=== PATIENT | male | born 1970 | race Caucasian/White ===

== ENCOUNTER 2017-10-14 19:35 | Emergency (ER) | payer SELFPAY ==
[2017-10-14 20:45] LABS: Urine Blood NEGATIVE (NEG); Urine Glucose NEGATIVE (NEG); Urine Protein NEGATIVE (NEG); Urine Specific Gravity >1.030 (1.005-1.030); Urine pH 5.5 (5.0-7.0)
[2017-10-14 20:51] LABS: Barbiturates NEGATIVE; Benzodiazepines NEGATIVE; Cocaine NEGATIVE; METHAMPHETAM NEGATIVE; Opiates POSITIVE; Phencyclidine NEGATIVE
[2017-10-14 20:52] LABS: THC Cannibis POSITIVE
[2017-10-14] MEDS ORDERED: NA CHLORIDE 0.9% 1,000 ML ONE (20:56)
[2017-10-14 21:02] LABS: Absolute Monocytes 0.4 K/uL (0.1-1.3); Absolute Neutrophil 4.1 K/uL (1.8-8.0); Basophils % 0.8 % (0-1.3); Eosinophils % 0.1 % (0-4.4); Hematocrit 42.2 % (39.6-49.0); Lymphocytes % 30.4 % (15.3-44.8); MCH 36.5 pg (27.0-35.0); MCV 105.6 fL (80-100); MPV 8.6 fL (7.6-11.3); Monocytes % 6.8 % (3.3-12.3)
[2017-10-14 21:11] LABS: Glucose Level 122 mg/dL (65-120)
[2017-10-14 21:14] LABS: BUN Blood Urea Nitrogen 13 mg/dL (6-20)
[2017-10-14 21:16] LABS: Bicarbonate 29 mEq/L (21-31); Creatine Phosphokinase 53 IU/L (22-269); Potassium 4.2 mEq/L (3.6-5.0); Sodium Level 138 mEq/L (135-145)
--- NOTE | 2017-10-14 21:21 | RAD REPORT ---
EXAM DESCRIPTION: RAD - Chest Single View - 10/14/2017 9:13 pm CLINICAL HISTORY: Chest pain. COMPARISON: None. FINDINGS: Portable technique limits examination quality. The lungs are grossly clear. The heart is upper limit normal size. No displaced fractures. IMPRESSION: No acute intrathoracic process suspected.
--- NOTE | 2017-10-14 21:25 | RAD REPORT ---
EXAM DESCRIPTION: CT - Head Brain Wo Cont - 10/14/2017 9:17 pm CLINICAL HISTORY: Altered consciousness COMPARISON: None. TECHNIQUE: All CT scans are performed using dose optimization technique as appropriate and may inclu de automated exposure control or mA/KV adjustment according to patient size. FINDINGS: No intracranial hemorrhage, hydrocephalus or extra-axial fluid collection.No areas of brai n edema or evidence of midline shift. The paranasal sinuses and mastoids are clear. The calvarium is intact. IMPRESSION: No acute intracranial abnormality.
[2017-10-14 21:37] LABS: Alcohol Serum/Plasma < 10 mg/dl; Blood Morphology Comment NOTED (NOT SEEN); Macrocytosis 1+; Platelet Estimate ADEQ; Urine White Blood Cell Casts OK
--- NOTE | 2017-10-14 23:10 | ER ---
Nurse's Notes [facility] Name: Tor Garland Age: 47 yrs Sex: Male : 1970 Arrival Date: 10/14/2017 Time: 19:37 Bed 17 Private MD: Diagnosis: Poisoning by other opioids, accidental (unintentional) Presentation: 10/14 19:59 Presenting complaint: "He is usually not this groggy, if I didn't know any better, I lk1 would think he is drunk, but I know he's not.". Transition of care: patient was not received from another setting of care. Onset of symptoms was October 14, 2017 at 18:45. Risk Assessment: Do you want to hurt yourself or someone else? Patient reports no desire to harm self or others. Initial Sepsis Screen:. Care prior to arrival: None. 19:59 Method Of Arrival: Ambulatory lk 19:59 Acuity: JIMMY 2 lk1 20:39 Initial Sepsis Screen: Does the patient meet any 2 criteria? No. Patient's initial ak1 sepsis screen is negative. Does the patient have a suspected source of infection? No. Patient's initial sepsis screen is negative. 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 - Social history:: Smoking status: Patient/guardian denies using tobacco. Screenin:36 Abuse screen: Denies threats or abuse. Denies injuries from another. Nutritional ak1 screening: No deficits noted. Tuberculosis screening: No symptoms or risk factors identified. Fall Risk None identified. Assessment: 20:36 General: Appears in no apparent distress. Behavior is cooperative, drowsy, quiet. Pain: ak1 Denies pain. Neuro: Level of Consciousness is awake, alert, obeys commands, lethargic, Oriented to person, place, situation, pt with downsyndrome . Heel Painter are equal bilaterally Moves all extremities. Gait is unsteady, Speech is normal, WNL for pt per family at bedside. Cardiovascular: No deficits noted. Respiratory: No deficits noted. Airway is patent Breath sounds are clear bilaterally. GI: No signs and/or symptoms were reported involving the gastrointestinal system. : No signs and/or symptoms were reported regarding the genitourinary system. EENT: No signs and/or symptoms were reported regarding the EENT system. Derm: No signs and/or symptoms reported regarding the dermatologic system. Musculoskeletal: No signs and/or symptoms reported regarding the musculoskeletal system. 22:09 Reassessment: Patient appears in no apparent distress at this time. pt appears drowsy ak1 and sleepy. 10/15 00:36 Reassessment: APS report filed, confirmation number [id number]. ak1 Vital Signs: 10/14 20:02 BP 131 / 70; Pulse 44; Resp 12; Temp 96.5(TE); Pulse Ox 99% on R/A; Weight 84.82 kg lk1 (R); Height 5 ft. 0 in. (152.40 cm) (R); Pain 3/10; 20:52 BP 128 / 75; Pulse 48; Resp 16; Pulse Ox 99% on R/A; ak1 22:10 BP 129 / 74; Pulse 55; Resp 16; Temp 97.8; Pulse Ox 100% on R/A; Pain 0/10; ak1 22:57 BP 129 / 71; Pulse 48; Resp 16; Temp 97.8; Pulse Ox 100% on R/A; Pain 0/10; ak1 20:02 Body Mass Index 36.52 (84.82 kg, 152.40 cm) lk1 ED Course: 19:37 Patient arrived in ED. ds1 20:00 Triage completed. lk1 20:05 Arm band placed on left wrist. lk1 20:15 Sp Vazquez MD is Attending Physician. gs 20:36 Carley Campos, RN is Primary Nurse. ak1 20:36 Patient has correct armband on for positive identification. Bed in low position. Call ak1 light in reach. Side rails up X2. Adult w/ patient. Pulse ox on. NIBP on. 20:52 CT Head Brain wo Cont Sent. ak1 20:53 Initial lab(s) drawn, by me, sent to lab. Urine collected: clean catch specimen, tea ak1 colored, Amount Voided: 150mL. Inserted saline lock: 20 gauge in right antecubital area, using aseptic technique. Blood collected. 20:[address] via stretcher. nj 21:05 Patient moved to radiology via stretcher. jb2 21:[address] via stretcher. jb2 21:11 XRAY Chest (1 view) In Process Unspecified. EDMS 21:11 X-ray completed. Patient tolerated procedure well. jb2 21:17 CT Head Brain wo Cont In Process Unspecified. EDMS 22:10 No provider procedures requiring assistance completed. ak1 23:14 IV discontinued, intact, bleeding controlled, No redness/swelling at site. Pressure ak1 dressing applied. Administered Medications: 21:25 Drug: NS 0.9% 1000 ml Route: IV; Rate: 1 bolus; Site: right antecubital; ak1 22:09 Follow up: IV Status: Completed infusion ak1 Outcome: 23:09 Discharge ordered by . pm1 23:14 Discharged to home ambulatory, with family. ak1 23:14 Condition: stable 23:14 Discharge instructions given to family, Instructed on discharge instructions, follow up and referral plans. Demonstrated understanding of instructions, follow-up care. 23:15 Patient left the ED. ak1 Signatures: Dispatcher [employer] EDMS Marcos Casper jb2 Marry Garrett ds1 Carley Campos RN RN ak1 Sheela Amos RN RN lk1 Lopez Bocanegra, SURGICAL LEAD SURGICAL LEAD pm1 Fahad Medina Gregory, MD MD
--- NOTE | 2017-10-14 23:10 | EDPHYS ---
Physician Documentation [facility] Name: Tor Garland Age: 47 yrs Sex: Male : 1970 Arrival Date: 10/14/2017 Time: 19:37 Bed 17 Private MD: ED Physician Sp Vazquez HPI: 10/14 21:25 This 47 yrs old Male presents to ER via Ambulatory with complaints of Altered gs Mental Status. 21:25 The patient presents with decreased responsiveness. Onset: The symptoms/episode gs began/occurred today. Possible causes: unknown. Associated signs and symptoms: Pertinent negatives: abdominal pain, agitation, diaphoresis, dizziness, headache. Unable to obtain HPI due to patient's inability to understand questions. 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 - Social history:: Smoking status: Patient/guardian denies using tobacco. ROS: 21:25 All other systems are negative. gs Exam: 10/15 10:57 Head/Face: Normocephalic, atraumatic. Eyes: Pupils equal round and reactive to light, gs extra-ocular motions intact. Lids and lashes normal. Conjunctiva and sclera are non-icteric and not injected. Cornea within normal limits. Periorbital areas with no swelling, redness, or edema. ENT: Nares patent. No nasal discharge, no septal abnormalities noted. Tympanic membranes are normal and external auditory canals are clear. Oropharynx with no redness, swelling, or masses, exudates, or evidence of obstruction, uvula midline. Mucous membranes moist. Neck: Trachea midline, no thyromegaly or masses palpated, and no cervical lymphadenopathy. Supple, full range of motion without nuchal rigidity, or vertebral point tenderness. No Meningismus. Chest/axilla: Normal chest wall appearance and motion. Nontender with no deformity. No lesions are appreciated. Cardiovascular: Regular rate and rhythm with a normal S1 and S2. No gallops, murmurs, or rubs. Normal PMI, no JVD. No pulse deficits. Respiratory: Lungs have equal breath sounds bilaterally, clear to auscultation and percussion. No rales, rhonchi or wheezes noted. No increased work of breathing, no retractions or nasal flaring. Abdomen/GI: Soft, non-tender, with normal bowel sounds. No distension or tympany. No guarding or rebound. No evidence of tenderness throughout. Back: No spinal tenderness. No costovertebral tenderness. Full range of motion. Skin: Warm, dry with normal turgor. Normal color with no rashes, no lesions, and no evidence of cellulitis. MS/ Extremity: Pulses equal, no cyanosis. Neurovascular intact. Full, normal range of motion. Neuro: Awake and alert, GCS 15, oriented to person, place, time, and situation. Cranial nerves II-XII grossly intact. Motor strength 5/5 in all extremities. Sensory grossly intact. Cerebellar exam normal. Normal gait. Constitutional: The patient appears alert, awake. Vital Signs: 10/14 20:02 BP 131 / 70; Pulse 44; Resp 12; Temp 96.5(TE); Pulse Ox 99% on R/A; Weight 84.82 kg lk1 (R); Height 5 ft. 0 in. (152.40 cm) (R); Pain 3/10; 20:52 BP 128 / 75; Pulse 48; Resp 16; Pulse Ox 99% on R/A; ak1 22:10 BP 129 / 74; Pulse 55; Resp 16; Temp 97.8; Pulse Ox 100% on R/A; Pain 0/10; ak1 22:57 BP 129 / 71; Pulse 48; Resp 16; Temp 97.8; Pulse Ox 100% on R/A; Pain 0/10; ak1 20:02 Body Mass Index 36.52 (84.82 kg, 152.40 cm) lk MDM: 20:40 Patient medically screened. 23:08 Data reviewed: vital signs. Data interpreted: Pulse oximetry: on room air is 100 %. pm1 Interpretation: normal. Counseling: I had a detailed discussion with the patient and/or guardian regarding: the historical points, exam findings, and any diagnostic results supporting the discharge/admit diagnosis, lab results, the need for outpatient follow up, to return to the emergency department if symptoms worsen or persist or if there are any questions or concerns that arise at home. 10/15 10:57 Differential Diagnosis: electrolyte abnormality, alcohol intoxication, intracranial gs bleed, overdose. Response to treatment: the patient's symptoms have markedly improved after treatment, and as a result, I will discharge patient. 10/14 20:23 Order name: UDS; Complete Time: 21:00 ak1 10/14 20:41 Order name: ETOH Level; Complete Time: 23:06 10/14 20:41 Order name: Basic Metabolic Panel; Complete Time: 23:06 10/14 20:41 Order name: CBC with Diff; Complete Time: 21:38 10/14 20:41 Order name: CPK; Complete Time: 23:06 10/14 20:41 Order name: Troponin (emerg Dept Use Only); Complete Time: 21:27 10/14 20:41 Order name: CT Head Brain wo Cont; Complete Time: 21:27 10/14 20:41 Order name: XRAY Chest (1 view); Complete Time: 21:27 10/14 20:41 Order name: EKG; Complete Time: 20:42 10/14 20:42 Order name: Urine Dipstick--Ancillary (enter results) rg2 10/14 20:46 Order name: AMMONIA; Complete Time: 21:18 10/14 21:27 Order name: Tylenol Level; Complete Time: 23:06 10/14 21:37 Order name: CBC Smear Scan; Complete Time: 21:38 EDMS 10/14 20:41 Order name: Cardiac monitoring; Complete Time: 21:25 10/14 20:41 Order name: EKG - Nurse/Tech; Complete Time: 21:58 10/14 20:41 Order name: IV Saline Lock; Complete Time: 20:51 10/14 20:41 Order name: Labs collected and sent; Complete Time: 20:52 10/14 20:41 Order name: O2 Per Protocol; Complete Time: 20:52 10/14 20:41 Order name: O2 Sat Monitoring; Complete Time: 20:52 10/14 20:41 Order name: Urine Dipstick-Ancillary (obtain specimen); Complete Time: 20:52 gs Administered Medications: 10/14 21:25 Drug: NS 0.9% 1000 ml Route: IV; Rate: 1 bolus; Site: right antecubital; ak1 22:09 Follow up: IV Status: Completed infusion ak1 Disposition: 10/15 10:57 Co-signature as Attending Physician, Sp Vazquez MD. gs Disposition: 10/14/17 23:09 Discharged to Home. Impression: Poisoning by other opioids, accidental (unintentional). - Condition is Stable. - Discharge Instructions: Narcotic Overdose, Overdose, Accidental. - Medication Reconciliation Form, Thank You Letter, Antibiotic Education, Prescription Opioid Use form. - Follow up: Private Physician; When: 1 - 2 days. Signatures: Dispatcher [employer] EDMS Carley Campso RN RN ak1 Sheela Amos RN RN lk1 Lopez Bocanegra, LINE APPLIANCE ASSEMBLER LINE APPLIANCE ASSEMBLER pm1 Sp Vazquez MD MD gs Corrections: (The following items were deleted from the chart) 10/14 23:15 23:09 10/14/2017 23:09 Discharged to Home. Impression: Poisoning by other opioids, ak1 accidental (unintentional). Condition is Stable. Discharge Instructions: Narcotic Overdose, Overdose, Accidental. Forms are Medication Reconciliation Form, Thank You Letter, Antibiotic Education, Prescription Opioid Use. Follow up: Private Physician; When: 1 - 2 days. pm1
--- NOTE | 2017-10-15 06:56 | EKG ---
Test Date: 2017-10-14 Test Time: 21:40:32 Club Director: ALY MEASUREMENT RESULTS: Intervals: Rate: 49 SD: 156 QRSD: 86 QT: 458 QTc: 413 [place]: P: 43 SD: 156 QRS: 11 T: 35 INTERPRETIVE STATEMENTS: Sinus bradycardia Otherwise normal ECG No previous ECG available for comparison Electronically Signed On 10-15-17 06:55:21 CDT by Ganesh Carver
== END 2017-10-14 23:15 | disposition home or self-care (01) ==
LOC: ER 19:35
DX: T40.2X1A Poisoning by other opioids, accidental (unintentional), initial encounter (principal); Y92.9 Unspecified place or not applicable
CPT/HCPCS: 36415; 70450; 71045; 80048; 80307; 80320; 80329; 81003; 82140; 82550; 84484; 85025; 93005; 96360; 99284; J7030

== ENCOUNTER 2022-05-21 09:24 | Observation (INO) | payer OTHER ==
--- OUTSIDE RECORDS SUMMARY | 2022-05-21 09:27 | XMS REPORT | Continuity of Care Document ---
:1970 Author Organization [facility] t Address [address] [place] [address] [address] [place] [address] Care Team Providers Name Role Phone Kd Armstrong MD Attending Clinician KD ARMSTRONG Attending Clinician Unavailable Doctor Unassigned, [place] Attending Clinician Unavailable Payers Payer Name Policy Type Policy Number Effective Date Expiration Date S ource Problems This patient has no known problems. Allergies, Adverse Reactions, Alerts Allergy Allergy Status Severity Reaction(s) Onset Inactive Treating Comm ents Source Name Type Date Date Clinician NO KNOWN Drug Active Univers ALLERGIE Class ity of [facility] Social History Social Habit Start Date Stop Date Quantity Comments Source Sex Assigned At [birth year] [facility] 00:00:00 00:00:00 [facility] Smoking Status Start Date Stop Date Source Unknown if ever smoked [facility] Medications Ordered Filled Start Stop Current Ordering Indication Dosage Frequency Signature Comments Components Source Medication Medication Date Date Medication? Clinician (SIG) Name Name barium 2020- No [id number] 680mL 680 mL, Un scott sulfate 08-15 Oral, ity of (LIQUID E-Z 14:15: 14:15 [place], [place] 60 % 00 :00 dose, Mon Med ical (w/v) oral 08/15/20 at [facility] suspension 0915, 680 mL Routine Procedures Procedure Date / Time Performed Performing Clinician Denice VALDES SMALL BOWEL SERIES 2020-08-15 18:44:34 Kd Armstrong [facility] ASSIGNMENT OF BENEFITS 2020-08-15 13:35:57 Doctor Unassigned, No [facility] Encounters Start End Encounter Admission Attending Care Care Encounter Source Date/Time Date/Time Type Type Clinicians Facility Department ID 2020-08-15 2020-08-15 [facility] [id number] Univers 08:36:47 23:59:00 Encounter Kd Jovany Todd [id number] ity [facility] [id number] [facility] [id number] [facility] [address] 2020-08-15 2020-08-15 Outpatient R [facility] [id number] Univers 00:00:00 00:00:00 KD ity [facility] 2020-08-15 2020-08-15 Orders Doctor SHEREE [id number] Univers 00:00:00 00:00:00 Only Unassigned, AMAURI [id number] ity of [facility] [id number] [facility] [id number] [facility] [address] 2017-03-13 2017-03-13 Outpatient [facility] [id number] 07:30:00 07:30:00 02 timur Stein 2016-03-06 2016-03-06 Outpatient [facility] [id number] [address] 08:30:00 08:30:00 01 timur Stein 2015-02-10 2015-02-10 Outpatient [facility] [id number] [address] 07:30:00 07:30:00 00 timur Stein Results Test Description Test Time Test Results Result Source Comments Comments [place] SMALL BOWEL 2020-07-26 Small bowel [facility] of SERIES [address] [facility] 19:22:04 obstruction. 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 Barium was administered for the patient to ingest. Fluoroscopy and serialfilms were obtained as the barium traversed the small bowel into the cecumand ascending colon. 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 The contrast passed easily throughthe duodenum which appears normal. The contrast reached: About 4 hours. Nomucosal or functional abnormalities were observed. 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 Fluoroscopy and serialfilms were obtained as the barium traversed the small bowel into the cecumand ascending colon. 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 The contrast passed easily throughthe duodenum which appears normal. The contrast reached: About 4 hours. Nomucosal or functional abnormalities were observed.IMPRESSIONSma ll bowel malrotation without obstruction.
[2022-05-21 10:10] LABS: Absolute Lymphocytes (CBC) 1.3 K/uL (0.7-4.9); Hematocrit 39.1 % (39.6-49.0); MCV 104.6 fL (80-100); MPV 7.6 fL (7.6-11.3); RBC Red Blood Cell Count 3.74 M/uL (4.33-5.43)
--- NOTE | 2022-05-21 10:29 | RAD REPORT ---
EXAM DESCRIPTION: RAD - Chest Single View - 05/21/2022 10:10 am CLINICAL HISTORY: SOB Chest pain. COMPARISON: Chest Pa And Lat (2 Views) dated 07/25/2020; Chest Single View dated 10/14/2017 FINDINGS: Portable technique limits examination quality. Interstitial markings are mildly prominent suggesting interstitial/viral infection or mild interstiti al pulmonary edema. The heart is upper limit normal in size. No displaced fractures.
[2022-05-21 10:38] LABS: SARS-COV-2 RT PCR NEGATIVE (NEGATIVE)
[2022-05-21 11:02] LABS: Potassium 3.7 mmol/L (3.5-5.1)
--- NOTE | 2022-05-21 11:38 | RAD REPORT ---
EXAM DESCRIPTION: CT - Thorax Wo Con CLINICAL HISTORY: Chest pain sob, concern for aspiration COMPARISON: Chest Single View dated 05/21/2022 FINDINGS: The lungs are clear. No pleural thickening or pleural effusion. No pneumothorax. No axillary, mediastinal or hilar adenopathy. No concerning bony finding. No gross upper abdominal finding. All CT scans are performed using dose optimization technique as appropriate and may include automated exposure control or mA/KV adjustment according to patient size. IMPRESSION: No acute abnormality is detected.
--- NOTE | 2022-05-21 11:52 | ER ---
Nurse's Notes [facility] Name: Tor Garland Age: 52 yrs Sex: Male : 1970 Arrival Date: 05/21/2022 Time: 09:30 Bed 8 Private MD: Diagnosis: Aspiration Presentation: 05/21 09:47 Chief complaint: Patient states: Coughing fit while eating breakfast this morning. Sent ll1 for r/o aspiration. Chief complaint: EMS states: VSS. Coronavirus screen: Vaccine status: Patient reports receiving the 2nd dose of the covid vaccine. Client denies travel out of the [place] in the last 14 days. cough unrelated to allergies, difficulty breathing, shortness of breath, Client presents with at least one sign or symptom that may indicate coronavirus-19. Standard/surgical mask placed on the client. Ebola Screen: Patient denies travel to an Ebola-affected area in the 21 days before illness onset. Initial Sepsis Screen: Does the patient meet any 2 criteria? No. Patient's initial sepsis screen is negative. Does the patient have a suspected source of infection? No. Patient's initial sepsis screen is negative. Risk Assessment: Do you want to hurt yourself or someone else? Patient reports no desire to harm self or others. Onset of symptoms was May 21, 2022. 09:47 Method Of Arrival: EMS: [facility] 09:47 Acuity: JIMMY 3 ll1 Triage Assessment: 10:00 General: Appears in no apparent distress. Behavior is calm, cooperative. Pain: Denies bp pain. EENT: No deficits noted. Neuro: AT BASELINE. Cardiovascular: Rhythm is sinus rhythm. Respiratory: No deficits noted. GI: No signs and/or symptoms were reported involving the gastrointestinal system. : No signs and/or symptoms were reported regarding the genitourinary system. Derm: No deficits noted. Musculoskeletal: No deficits noted. 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 - Social history:: Smoking status: Patient denies any tobacco usage or history of. Screenin:00 [facility] ED Fall Risk Assessment (Adult) History of falling in the last 3 months, bp including since admission No falls in past 3 months (0 pts). Abuse screen: Denies threats or abuse. Denies injuries from another. Nutritional screening: No deficits noted. Tuberculosis screening: No symptoms or risk factors identified. Assessment: 10:00 General: SEE TRIAGE NOTE. bp 12:00 Reassessment: ADMIT INITIATED. bp 14:00 Reassessment: No changes from previously documented assessment. Patient and/or family bp updated on plan of care and expected duration. Pain level reassessed. ADMIT IN PROCESS. 19:20 General: Appears in no apparent distress. comfortable, well groomed, well developed, pf1 Behavior is cooperative, appropriate for age. 19:20 Pain: Complains of pain in head Pain currently is 5 out of 10 on a pain scale. Neuro: pf1 Level of Consciousness is awake, alert, obeys commands, Oriented to Appropriate for age. Cardiovascular: No deficits noted. Capillary refill < 3 seconds. Respiratory: Reports cough that is Airway is patent Respiratory effort is even, unlabored, Respiratory pattern is regular, symmetrical. GI: No deficits noted. Abdomen is flat, non-distended, Bowel sounds present X 4 quads. Abd is soft and non tender X 4 quads. : No deficits noted. No signs and/or symptoms were reported regarding the genitourinary system. EENT: No deficits noted. No signs and/or symptoms were reported regarding the EENT system. Derm: No deficits noted. No signs and/or symptoms reported regarding the dermatologic system. 20:30 Reassessment: Patient appears in no apparent distress at this time. No changes from [facility] previously documented assessment. Patient and/or family updated on plan of care and expected duration. Pain level reassessed. 21:45 General: Patient cleaned of urine and feces, clean brief applied. Patient taken to [facility] upstairs to be admitted via WC.. Vital Signs: 09:47 BP 115 / 78; Pulse 60; Resp 18; Temp 98.8; Pulse Ox 99% ; Weight 85 kg; Height 5 ft. bp (152.40 cm); Pain 5/10; 12:00 BP 101 / 87; Pulse 57; Resp 16; Pulse Ox 100% ; bp 14:00 BP 97 / 62; Pulse 63; Resp 19; Pulse Ox 100% ; bp 19:00 BP 117 / 65; Pulse 60; Resp 19; Temp 98.2; Pulse Ox 99% on R/A; Pain 5/10; pf1 20:00 BP 126 / 70; Pulse 54; Resp 14; Temp 98; Pulse Ox 100% on R/A; Pain 5/10; pf1 21:00 BP 131 / 70; Pulse 54; Resp 18; Temp 97.9; Pulse Ox 100% on R/A; Pain 5/10; pf1 09:47 Body Mass Index 36.60 (85.00 kg, 152.40 cm) bp ED Course: 09:30 Patient arrived in ED. em1 09:30 James Crespo PA is PHCP. jmm 09:30 Frederic Lea MD is Attending Physician. jmm 09:30 Arm band placed on Patient placed in an exam room, on a stretcher. ll1 09:46 Galina Hyatt RN is Primary Nurse. ll1 09:48 Triage completed. ll1 09:53 CBC with Diff Sent. rs5 09:53 BMP Sent. rs5 09:53 COVID-19/FLU A+B Sent. rs5 09:54 Inserted saline lock: 20 gauge in right forearm, using aseptic technique. Blood rs5 collected. 09:54 COVID swab sent to lab. rs5 10:00 Patient has correct armband on for positive identification. Bed in low position. Call bp light in reach. Side rails up X2. Adult w/ patient. 10:11 Chest Single View XRAY In Process Unspecified. EDMS 11:07 CT Chest Wo Con In Process Unspecified. EDMS 11:51 Bess Banks MD is Hospitalizing Provider. [facility] 20:57 No provider procedures requiring assistance completed. Patient admitted, IV remains in pf1 place. Administered Medications: 13:30 Drug: Zosyn (piperacillin-tazobactam) 3.375 grams Route: IVPB; Infused Over: 60 mins; bp Site: right antecubital; Medication: 20:58 VIS not applicable for this client. pf1 Outcome: 11:52 Decision to Hospitalize by Provider. jmm 20:58 Condition: stable pf1 20:58 Instructed on the need for admit. 21:45 Admitted to Med/surg accompanied by tech, via wheelchair, room 409, with chart, Report pf1 called to VEE Desai 21:47 Patient left the ED. pf1 Signatures: Dispatcher [employer] EDMS James Crespo PA PA jmm Martinez, Eric em1 Jaime Villatoro RN RN bp Galina Hyatt RN RN ll1 Faye pedraza RN RN pf1 Triston Ramos rs5 Corrections: (The following items were deleted from the chart) 18:41 09:47 BP 115 / 78; Pulse 60bpm; Resp 18bpm; Pulse Ox 99%; Temp 98.8F; Pain 5/10; ll1 bp
--- NOTE | 2022-05-21 11:52 | EDPHYS ---
Physician Documentation [facility] Name: Tor Garland Age: 52 yrs Sex: Male : 1970 Arrival Date: 05/21/2022 Time: 09:30 Bed 8 Private MD: ED Physician Frederic Lea HPI: 05/21 09:57 This 52 yrs old Male presents to ER via EMS with complaints of cough, sob. [facility] 09:57 Onset: The symptoms/episode began/occurred acutely, just prior to arrival. The [facility] patient's shortness of breath is aggravated by coughing, is alleviated by nothing. This is a 52 year old male with a history of MR that presents to the ED after an episode of sob which occurred after a coughing fit. Patient currently has no sob, chest pain, abdominal pain, nausea, vomiting. . Historical: - Allergies: 09:47 No Known Allergies; ll1 - PMHx: 09:47 mastoiditis; mental retardation; ll1 - PSHx: 09:47 Unable to Obtain; ll1 - Immunization history:: Adult Immunizations up to date. - Social history:: Smoking status: Patient denies any tobacco usage or history of. ROS: 09:57 Constitutional: Negative for fever, chills, and weight loss, Cardiovascular: Negative [facility] for chest pain, palpitations, and edema. 09:57 Respiratory: Positive for cough. 09:57 All other systems are negative. Exam: 09:57 Constitutional: This is a well developed, well nourished patient who is awake, alert, jmm and in no acute distress. Head/Face: atraumatic. Eyes: EOMI, no conjunctival erythema appreciated ENT: Moist Mucus Membranes Neck: Trachea midline, Supple Chest/axilla: Normal chest wall appearance and motion. Cardiovascular: Regular rate and rhythm. No edema appreciated Respiratory: Normal respirations, no respiratory distress appreciated Abdomen/GI: Non distended Back: Normal ROM Skin: General appearance color normal MS/ Extremity: Moves all extremities, no obvious deformities appreciated, no edema noted to the lower extremities Neuro: Awake and alert Psych: Behavior is normal, Mood is normal, Patient is cooperative and pleasant 10:04 ECG was reviewed by the Attending Physician. [facility] Vital Signs: 09:47 BP 115 / 78; Pulse 60; Resp 18; Temp 98.8; Pulse Ox 99% ; Weight 85 kg; Height 5 ft. bp (152.40 cm); Pain 5/10; 12:00 BP 101 / 87; Pulse 57; Resp 16; Pulse Ox 100% ; bp 14:00 BP 97 / 62; Pulse 63; Resp 19; Pulse Ox 100% ; bp 19:00 BP 117 / 65; Pulse 60; Resp 19; Temp 98.2; Pulse Ox 99% on R/A; Pain 5/10; pf1 20:00 BP 126 / 70; Pulse 54; Resp 14; Temp 98; Pulse Ox 100% on R/A; Pain 5/10; pf1 21:00 BP 131 / 70; Pulse 54; Resp 18; Temp 97.9; Pulse Ox 100% on R/A; Pain 5/10; pf1 09:47 Body Mass Index 36.60 (85.00 kg, 152.40 cm) bp MDM: 09:[address] [facility] 11:48 Data reviewed: vital signs, nurses notes. Counseling: I had a detailed discussion with pool the patient and/or guardian regarding: the historical points, exam findings, and any diagnostic results supporting the discharge/admit diagnosis, lab results, radiology results, the need for further work-up and treatment in the hospital. ED course: Dr. Banks was contacted in regard to admission. . 05/21 09:38 Order name: COVID-19/FLU A+B; Complete Time: 10:[address] [facility] 05/21 09:38 Order name: CBC with Diff; Complete Time: 10:[address] [facility] 05/21 09:38 Order name: BMP; Complete Time: 11:[address] [facility] 05/21 11:50 Order name: Blood Culture Adult (2) [facility] 05/21 11:50 Order name: Lactate w/ 2H reflex if indic.; Complete Time: 12:[address] [facility] 05/21 13:38 Order name: CBC with Automated Diff [facility] 05/21 13:38 Order name: CBC with Automated Diff [facility] 05/21 13:38 Order name: Comprehensive Metabolic Panel [facility] 05/21 13:38 Order name: Comprehensive Metabolic Panel [facility] 05/21 13:38 Order name: Lipid Profile [facility] 05/21 13:38 Order name: Lipid Profile [facility] 05/21 13:38 Order name: Magnesium [facility] 05/21 13:38 Order name: Magnesium EDMS 05/21 13:38 Order name: Phosphorus EDMS 05/21 09:38 Order name: Chest Single View XRAY; Complete Time: 10:[address] [facility] 05/21 09:38 Order name: Saline Lock; Complete Time: 09:[address] [facility] 05/21 10:40 Order name: CT Chest Wo Con; Complete Time: 11:[address] [facility] 05/21 13:38 Order name: Regular EDMS 05/21 13:38 Order name: Phosphorus EDMS EC:04 Rate is 60 beats/min. Rhythm is regular. QRS Ruth is Normal. RI interval is normal. QRS jmm interval is normal. QT interval is normal. No Q waves. T waves are Normal. No ST changes noted. Reviewed by me. Administered Medications: 13:30 Drug: Zosyn (piperacillin-tazobactam) 3.375 grams Route: IVPB; Infused Over: 60 mins; bp Site: right antecubital; Disposition Summary: 05/21/22 11:52 Hospitalization Ordered Hospitalization Status: Observation [facility] Provider: Bess Banks Condition: Stable jmm Problem: new jmm Symptoms: have improved jmm Bed/Room Type: Standard [facility] Location: Telemetry/MedSurg (observation)(05/21/22 19:37) [facility] Room Assignment: [facility](05/21/22 20:28) Diagnosis - Aspiration jmm Forms: - Medication Reconciliation Form jmm - SBAR form jmm Signatures: Dispatcher [employer] EDRI Frederic Lea MD MD cha Mickail, Joel, PA PA [facility] Gwendolyn Love, RN RN Abby Nguyễn RN RN jl7 Jaime Villatoro RN RN Willie Tsai 2 Galina Hyatt RN RN ll1 Corrections: (The following items were deleted from the chart) 15:10 11:52 Telemetry/MedSurg (observation) [facility] jl7 15:10 11:[address] [facility] jl7 19:37 15:[address] [facility] ER HOLD jl7 mw2 19:37 15:10 ERHOLD- jl7 mw2 20:28 19:37 [facility]
[2022-05-21] MEDS ORDERED: Meropenem 1000 MG/VIAL IV ONE (12:25)
[2022-05-21] MEDS ORDERED: NA CHLORIDE 0.9% 100 ML IV ONE ×2 (12:25→16:31)
[2022-05-21] MEDS ORDERED: ONDANSETRON 4 MG/2 ML VIAL IV PRN (13:32)
[2022-05-21] MEDS ORDERED: ACETAMINOPHEN 500 MG TAB PO PRN (13:32)
[2022-05-21] MEDS ORDERED: NA CHLORIDE 0.9% 1,000 ML IV SCH (14:00)
[2022-05-21] MEDS ORDERED: PIPERACIL/TAZO 3.375 GM VIAL IV ONE (16:31)
[2022-05-21] MEDS ORDERED: NA CHLORIDE 0.9% 1,000 ML ONE (16:31)
[2022-05-21] MEDS: PIPER TAZO 3.375 GM in NA CHLORIDE 0.9% 100 ML IV SCH (17:00)
[2022-05-21 18:56] VITALS: BMI 36.1
--- NOTE | 2022-05-21 20:52 | P.HP ---
Certification for Inpatient Patient admitted to: Observation With expected LOS: <2 Midnights Patient will require the following post-hospital care: None Practitioner: I am a practitioner with admitting privileges, knowledge of patient current condition, hospital course, and medical plan of care. Services: Services provided to patient in accordance with Admission requirements found in Title 42 Section 412.3 of the Code of Federal Regulations Patient History Date of Service: 05/21/22 Reason for admission: Aspiration pneumonia History of Present Illness: P Patient was eating at the facility he states that he started taking. He came to the emergency room. In the emergency room CT scan did not review any pneumonia. When I came to see the patient he has just been fed his dinner, and he is lying flat. I really think he needs to beatient is a 52-year-old gentleman who is a rest and [facility] who comes to the hospital with aspiration pneumonia. Patient was apparently eating at the nursing facility when he choked on some food. He was sent to the emergency room. In the emergency room his workup is unremarkable. Advised patient to have a bedside swallow study and if he tolerates than he should be able to go home. At this time, patient be admitted for observation. Allergies No Known Allergies Allergy (Unverified 05/21/22 13:51) - Past Medical/Surgical History Has patient received pneumonia vaccine in the past: Yes Diabetic: No -: mental retardation Past Surgical History: Patient denies surgical history - Family History Father Family History: Reviewed- Non-Contributory - Social History Smoking Status: Never smoker CD- Drugs: No Caffeine use: No Place of Residence: [facility] Review of Systems 10-point ROS is otherwise unremarkable Physical Examination - Vital Signs Temperature: 98 F Blood Pressure: 114/71 Pulse: 56 Respirations: 15 Pulse Ox (%): 100 - Physical Exam General: Alert, In no apparent distress, Oriented x3 HEENT: Atraumatic, PERRLA, Mucous membr. moist/pink, EOMI, Sclerae nonicteric Neck: Supple, 2+ carotid pulse no bruit, No LAD, Without JVD or thyroid abnormality Respiratory: Clear to auscultation bilaterally, Normal air movement Cardiovascular: Regular rate/rhythm, Normal S1 S2, No murmurs Gastrointestinal: Normal bowel sounds, Soft and benign, Non-distended, No tenderness Musculoskeletal: No clubbing, No swelling, No tenderness Integumentary: No rashes Neurological: Normal gait, Normal speech, Normal tone, Sensation intact, Cranial nerves 3-12 intact, Normal affect, Abnormal strength Lymphatics: No axilla or inguinal lymphadenopathy - Studies Laboratory Data (last 24 hrs) 05/21/22 09:48: Sodium 141, Potassium 3.7, BUN 22 H, Creatinine 0.62 L, Glucose 112 H 05/21/22 09:48: WBC 8.20, Hgb 13.8, Hct 39.1 L, Plt Count 240 Assessment & Plan - Problems (Diagnosis) (1) Aspiration into airway Current Visit: Yes Status: Acute - Plan Plan: 1. Aspiration precautions 2. Advanced diet as tolerated 3. Monitor labs and electrolytes 4. GI DVT prophylaxis Discharge Plan: [facility] Plan to discharge in: 24 Hours - Advance Directives Does patient have a Living Will: No Does patient have a Durable POA for Healthcare: No - Code Status/Comfort Care Code Status Assessed: Yes Code Status: Full Code Critical Care: No Time Spent Managing PTS Care (In Minutes): 45
[2022-05-22] MEDS: PIPER TAZO 3.375 GM in NA CHLORIDE 0.9% 100 ML IV SCH (00:35)
[2022-05-22 03:38] LABS: Absolute Lymphocytes (CBC) 2.1 K/uL (0.7-4.9); Hematocrit 35.4 % (39.6-49.0); Lymphocytes % 27.7 % (15.3-44.8); MCV 104.9 fL (80-100); MPV 7.6 fL (7.6-11.3); RBC Red Blood Cell Count 3.38 M/uL (4.33-5.43)
[2022-05-22 04:10] LABS: Albumin 2.6 g/dL (3.4-5.0); Bilirubin Total 0.6 mg/dL (0.2-1.0); Magnesium 2.3 mg/dL (1.6-2.4); Phosphorus 3.6 mg/dL (2.5-4.9); Potassium 3.5 mmol/L (3.5-5.1); Protein, Total 6.7 g/dL (6.4-8.2)
[2022-05-22 05:02] VITALS: O2SAT 98
[2022-05-22 08:31] VITALS: BP 119/66; TEMP 96.8
[2022-05-22 08:53] LABS: Folic Acid, (Folate) 9.2 ng/mL (3.1-17.5)
[2022-05-22] MEDS ORDERED: POTASSIUM CL SA 10 MEQ TAB PO ONE (09:00)
[2022-05-22] MEDS ORDERED: ENOXAPARIN 40 MG/0.4 ML SQ SCH (09:00)
--- NOTE | 2022-05-22 13:41 | EKG ---
Test Date: 2022-05-21 Test Time: 09:35:14 [employer] Business Representative: WANG MEASUREMENT RESULTS: Intervals: Rate: 60 SD: 142 QRSD: 86 QT: 438 QTc: 438 [place]: P: 66 SD: 142 QRS: 45 T: 38 INTERPRETIVE STATEMENTS: Normal sinus rhythm Normal ECG Compared to ECG 10/14/2017 21:40:32 Sinus bradycardia no longer present Electronically Signed On 05-22-22 13:38:39 POOL TABLE OPERATOR by Adeel Mcginnis
== END 2022-05-22 09:38 ==
LOC: ER 09:24 → ERHOLD 13:32 → 4TH 20:48
PROVIDERS: ADMIT Hospitalist; ATTEND Hospitalist
DX: T17.928A Food in respiratory tract, part unspecified causing other injury, initial encounter (principal); X58.XXXA Exposure to other specified factors, initial encounter; Y93.9 Activity, unspecified; Y92.129 Unspecified place in nursing home as the place of occurrence of the external cause; Z20.822 Contact with and (suspected) exposure to COVID-19
CPT/HCPCS: 0240U; 36415; 71045; 71250; 80048; 80053; 80061; 82607; 82746; 83540; 83605; 83735; 84100; 85025; 87040; 93005; 94760; 96374; 99285; G0378; J2185; J2543; J7030

== ENCOUNTER 2023-03-10 12:08 | Emergency (ER) | payer OTHER ==
--- OUTSIDE RECORDS SUMMARY | 2023-03-10 12:11 | XMS REPORT | Continuity of Care Document ---
:[address] [facility] t Address [address] [place] [address] Care Team Providers Name Role Phone Kd Armstrong MD Attending Clinician KD ARMSTRONG Attending Clinician Unavailable Doctor Unassigned, Gillis Attending Clinician Unavailable Payers Payer Name Policy Type Policy Number Effective Date Expiration Date S ource Problems This patient has no known problems. Allergies, Adverse Reactions, Alerts Allergy Allergy Status Severity Reaction(s) Onset Inactive Treating Comm ents Source Name Type Date Date Clinician NO KNOWN Drug Active Univers ALLERGIE Class ity [facility] Social History Social Habit Start Date Stop Date Quantity Comments Source Sex Assigned At [birth year] [facility] 00:00:00 00:00:00 [facility] Smoking Status Start Date Stop Date Source Unknown if ever smoked [facility] Medications Ordered Filled Start Stop Current Ordering Indication Dosage Frequency Signature Comments Components Source Medication Medication Date Date Medication? Clinician (SIG) Name Name barium 2020- No [id number] 680mL 680 mL, Un scott sulfate 08-15 Oral, ity of (LIQUID E-Z 14:15: 14:15 [place], [place] 60 % 00 :00 dose, Mon Med ical (w/v) oral 08/15/20 at [facility] suspension 0915, 680 mL Routine Procedures Procedure Date / Time Performed Performing Clinician Denice VALDES SMALL BOWEL SERIES 2020-08-15 18:44:34 Kd Armstrong [facility] ASSIGNMENT OF BENEFITS 2020-08-15 13:35:57 Doctor Unassigned, No [facility] Branch Encounters Start End Encounter Admission Attending Care Care Encounter Source Date/Time Date/Time Type Type Clinicians Facility Department ID 2020-08-15 2020-08-15 [facility] [id number] Univers 08:36:47 23:59:00 Encounter Kd Todd [id number] ity of [place] [id number] [facility] [id number] [facility] [address] 2020-08-15 2020-08-15 [facility] [id number] Univers 00:00:00 00:00:[address] [facility] 2020-08-15 2020-08-15 Orders Doctor BENTLEY [id number] Univers 00:00:00 00:00:00 Only Unassigned, AMAURI [id number] ity of Gillis [facility] [id number] [facility] [id number] [facility] [address] 2017-03-13 2017-03-13 Outpatient IE IE [id number] Memoria 07:30:00 07:30:00 02 timur Stein 2017-03-13 2017-03-13 Outpatient IE IE [id number] Memoria 07:30:00 07:30:00 02 timur Stein 2016-03-06 2016-03-06 Outpatient IE IE [id number] Memoria 08:30:00 08:30:00 01 timur Stein 2016-03-06 2016-03-06 Outpatient IE IE [id number] Memoria 08:30:00 08:30:00 01 timur Stein 2015-02-10 2015-02-10 Outpatient IE IE [id number] Memoria 07:30:00 07:30:00 00 timur Stein 2015-02-10 2015-02-10 Outpatient IE IE [id number] Memoria 07:30:00 07:30:00 00 timur Stein Results Test Description Test Time Test Results Result Source Comments Comments [place] SMALL BOWEL 2020-07-26 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 Nomucosal or functional abnormalities were observed. 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
[2023-03-10 12:52] LABS: Urine Bacteria <20 /HPF (<20); Urine Mucus Slight /HPF (None Seen); Urine RBC >50 /HPF (None Seen)
--- NOTE | 2023-03-10 14:00 | RAD REPORT ---
EXAM DESCRIPTION: CT - Stone Protocol - 03/10/2023 1:49 pm CLINICAL HISTORY: Flank pain. HEMATURIA COMPARISON: No comparisons TECHNIQUE: Axial images were obtained without oral or IV contrast. Lack of contrast limits solid org an and vascular assessment. The [id number] spans the entirety of the system partially obscuring uppermost abdomen and lung bases. Coronal reformatted images were obtained and reviewed. All CT scans are performed using dose optimization technique as appropriate and may include automated exposure control or mA/KV adjustment according to patient size. FINDINGS: The lower lung moody are clear. Imaged portions of the liver and spleen show no suspicious findings on non-contrast imaging. The panc reas and adrenal glands are normal. No pathologic lymphadenopathy in the abdomen or pelvis. No urinary tract stones or obstructive uropathy. 19 mm benign cyst right kidney. Thickening of the ur inary bladder is seen with mild reticulation of the adjacent fat. No bowel obstruction, free air, free fluid or abscess. Prior right colectomy is possible. Moderate lumbar degenerative changes. IMPRESSION: No urinary tract stones or obstructive uropathy. Thickening of the urinary bladder is seen which may indicate cystitis. Followup direct visualization with cystoscopy may be considered.
--- NOTE | 2023-03-10 14:10 | ER ---
Nurse's Notes [facility] Name: Tor Garland Age: 53 yrs Sex: Male : 1970 Arrival Date: 03/10/2023 Time: 12:08 Bed 5 Private MD: Diagnosis: Acute cystitis with hematuria Presentation: 03/10 12:11 Chief complaint: EMS states: patient was sent from [place] after the [facility]ATE PICKER found blood me1 in his diaper this morning. Patient does c/o pain with urination. Coronavirus screen: Vaccine status: unknown. Ebola Screen: No symptoms or risks identified at this time. Initial Sepsis Screen: Does the patient meet any 2 criteria? No. Patient's initial sepsis screen is negative. Does the patient have a suspected source of infection? Yes: Dysuria/Frequency/Urgency/UTI. Risk Assessment: Do you want to hurt yourself or someone else? Patient reports no desire to harm self or others. Onset of symptoms is unknown. 12:11 Method Of Arrival: EMS: [facility] [place] 12:11 Acuity: JIMMY 3 me1 Triage Assessment: 12:13 General: Appears comfortable, well groomed, well developed, well nourished, Behavior is me1 calm, cooperative, at baseline. hx of Downs Syndrome. . Pain: Unable to use pain scale. Does not appear to understand pain scale. hx Downs syndrome. Neuro: Level of Consciousness is awake, alert, obeys commands, Oriented to person, situation. Cardiovascular: Capillary refill < 3 seconds Patient's skin is warm and dry. Respiratory: Airway is patent Respiratory effort is even, unlabored, Respiratory pattern is regular, symmetrical. : Parent/caregiver report the patient having burning with urination [facility] at [place] found blood in patient's diaper this morning. [facility] patient has discomfort with urination. 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 - Social history:: Smoking status: Patient denies any tobacco usage or history of. Screenin:25 [facility] ED Fall Risk Assessment (Adult) History of falling in the last 3 months, me1 including since admission No falls in past 3 months (0 pts) Confusion or Disorientation No (0 pts) Intoxicated or Sedated No (0 pts) Impaired Gait Yes (1 pt) Mobility Assist Device Used Yes (1 pt) Altered Elimination Yes (1 pt) Score/Fall Risk Level 0 - 2 = Low Risk. Abuse screen: Denies threats or abuse. Nutritional screening: No deficits noted. Tuberculosis screening: No symptoms or risk factors identified. Assessment: 12:25 General: See triage assessment.. me1 12:41 Reassessment: Patient appears in no apparent distress at this time. Patient and/or db family updated on plan of care and expected duration. Pain level reassessed. Patient is alert, oriented x 3, equal unlabored respirations, skin warm/dry/pink. General: Appears in no apparent distress. comfortable, Behavior is calm, cooperative. Neuro:. 13:30 Reassessment: Patient appears in no apparent distress at this time. Patient and/or db family updated on plan of care and expected duration. Pain level reassessed. Patient is alert, oriented x 3, equal unlabored respirations, skin warm/dry/pink. 14:30 Reassessment: CALLED [facility] [phone]. CLERICAL AND OFFICE SUPPORT WORKERS db ANSWERED. NURSE DID NOT ANSWER WILL CALL BACK AND ATTEMPT TO GIVE REPORT AND REQUEST TRANSPORTATION. 14:50 Reassessment: REPORT GIVEN TO BRENNA AT [place]. NOTIFIED OF NEED FOR TRANSPORT. db STATES SHE WILL CONTACT ADMINISTRATION BECAUSE IT IS A WEEKEND AND THEY DON'T HAVE TRANSPORTATION AVAILABLE. NOTIFIED CHARGE NURSE SIERRA. 15:14 Reassessment: Per Aditi at [facility], transport will be here for pt in 30 minutes. hb Vital Signs: 12:11 BP 101 / 63; Pulse 69; Resp 16; Temp 99.1(O); Pulse Ox 99% on R/A; Weight 66.68 kg; sd1 Height 4 ft. 10 in. ; 13:00 BP 110 / 67; Pulse 64; Resp 16; Pulse Ox 100% on R/A; db 13:30 BP 101 / 57; Pulse 63; Resp 16; Pulse Ox 100% on R/A; db 12:11 Body Mass Index 30.72 (66.68 kg, 147.32 cm) [facility] [place] ED Course: 12:10 Patient arrived in ED. [facility] [place] 12:11 Courtney Caldera, RN is Primary Nurse. sd1 12:12 Ezra Cruz MD is Attending Physician. ec2 12:13 Triage completed. me1 12:13 Arm band placed on Patient placed in an exam room. me1 12:25 Patient has correct armband on for positive identification. Bed in low position. Call sd1 light in reach. Side rails up X2. Provided Education on:. 12:25 No provider procedures requiring assistance completed. sd1 12:41 Shirin Arenas, RN is Primary Nurse. db 13:[address] In Process Unspecified. EDMS Administered Medications: No medications were administered Medication: 12:25 VIS not applicable for this client. sd1 Outcome: 14:09 Discharge ordered by . ec2 16:18 Patient left the ED. Signatures: Dispatcher [employer] EDMS Sierra Borges RN RN Shirin Arenas, RN RN Courtney Roque, RN RN [facility] [place] Ezra Cruz MD MD ec2 Corrections: (The following items were deleted from the chart) 12:49 12:37 Urinalysis+U.LAB.BRZ drawn and sent. [facility] EDMS 14:59 14:58 Reassessment: REPORT GIVEN TO BRENNA [facility]ILLA [place]. NOTIFIED OF NEED FOR db TRANSPORT. STATES SHE WILL CONTACT ADMINISTRATION BECAUSE IT IS A WEEKEND AND THEY DON'T HAVE TRANSPORTATION AVAILABLE. NOTIFIED CHARGE NURSE SIER[place]. db
--- NOTE | 2023-03-10 14:10 | EDPHYS ---
Physician Documentation [facility] Name: Tor Garland Age: 53 yrs Sex: Male : 1970 Arrival Date: 03/10/2023 Time: 12:08 Bed 5 Private MD: ED Physician Ezra Cruz HPI: 03/10 12:21 This 53 yrs old Male presents to ER via EMS with complaints of blood in urine.ec2 12:21 Patient arrives today due to concern for hematuria. Patient is coming from facility, he ec2 had expressed to someone that he was having some discomfort with urination and was having some blood in the urine. Patient is minimally verbal due to his baseline functional status, history of Down syndrome. Patient with no other complaints.. 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 - Social history:: Smoking status: Patient denies any tobacco usage or history of. ROS: 12:21 : Positive for hematuria. ec2 Exam: 12:21 Constitutional: PHYSICAL EXAMINATION: GENERAL: No acute distress HEENT: Extraocular ec2 motions intact CV: Regular rate LUNGS: No respiratory distress ABDOMEN: Nondistended, Soft, nontender, no guarding, not rigid. Negative flanks bilaterally. SKIN: No rash NEUROLOGIC: Moves all extremities equally Vital Signs: 12:11 BP 101 / 63; Pulse 69; Resp 16; Temp 99.1(O); Pulse Ox 99% on R/A; Weight 66.68 kg; pr1 Height 4 ft. 10 in. ; 13:00 BP 110 / 67; Pulse 64; Resp 16; Pulse Ox 100% on R/A; db 13:30 BP 101 / 57; Pulse 63; Resp 16; Pulse Ox 100% on R/A; db 12:11 Body Mass Index 30.72 (66.68 kg, 147.32 cm) me1 MDM: 12:12 Patient medically screened. ec2 12:21 Data reviewed: vital signs. ED course: Patient arrives today due to concern for ec2 hematuria and dysuria. Examination markable well-appearing nontoxic individual with a benign abdomen and negative flank bilaterally. We will send urine studies to evaluate for urinary tract infection as well as the patient's hematuria. Currently considering urinary tract infection, lower suspicion for intra-abdominal fracture, lower suspicion for kidney stone, nephrolithiasis, urolithiasis given his reassuring flanks and abdomen. . 13:26 ED course: Patient with RBCs noted in the urine, noninfectious appearing otherwise. ec2 Will obtain CT scan to evaluate for renal stone. Patient otherwise with reassuring vital signs, have a low clinical suspicion for acute organ dysfunction and will currently defer labs at this time. Initially given patient disability I do not feel he would do well with the lab work and do not feel that they would provide additional clinical support at this time. 14:09 ED course: CT renal stone protocol with no evidence of urolithiasis, does have bladder ec2 wall thickening. I will treat the patient for urinary tract infection given this finding otherwise patient is urinating without issue and it does not have obstruction. I will discharge patient home prescription for antibiotics. Return precautions given.. 03/10 12:49 Order name: Urine Microscopic Only; Complete Time: 13:25 EDMS 03/10 13:25 Order name: Stone Protocol CT; Complete Time: 14:08 ec2 Administered Medications: No medications were administered Disposition Summary: 03/10/23 14:09 Discharge Ordered Notes: Location: Home ec2 Condition: Stable ec2 Diagnosis - Acute cystitis with hematuria ec2 Discharge Instructions: - Discharge Summary Sheet ec2 - Hematuria, Adult ec2 - Urinary Tract Infection, Adult ec2 Forms: - Medication Reconciliation Form ec2 - Thank You Letter ec2 - Antibiotic Education ec2 - Prescription Opioid Use ec2 - Patient Portal Instructions ec2 - Leadership Thank You Letter ec2 Prescriptions: - Cephalexin 500 mg Oral Capsule - take 1 capsule ORAL route every 6 hours for 10 days; 40 capsule; Refills: 0, ec2 Product Selection Permitted Signatures: Dispatcher [employer] Courtney Cruz RN RN pr1 Ezra Cruz MD MD ec2 Corrections: (The following items were deleted from the chart) 12:49 12:20 Urinalysis+U.LAB.BRZ ordered. EDOH ORALIAOH
[2023-03-10 17:00] VITALS: TEMP 99.1
[2023-03-10 17:02] VITALS: O2SAT 100
[2023-03-10 17:03] VITALS: BP 101/57
== END 2023-03-10 16:18 | disposition home or self-care (01) ==
LOC: ER 12:08
DX: N30.01 Acute cystitis with hematuria (principal); F79 Unspecified intellectual disabilities
CPT/HCPCS: 74176; 76377; 81015; 99283

== ENCOUNTER 2023-04-01 16:57 | Inpatient (IN) | payer OTHER ==
--- OUTSIDE RECORDS SUMMARY | 2023-04-01 17:00 | XMS REPORT | Continuity of Care Document ---
:1970 Author Organization [facility] t Address [address] [place] [address] Care Team Providers Name Role Phone Kd Armstrong MD Attending Clinician KD ARMSTRONG Attending Clinician Unavailable Doctor Unassigned, [place] Attending Clinician Unavailable Payers Payer Name Policy Type Policy Number Effective Date Expiration Date S ource Problems This patient has no known problems. Allergies, Adverse Reactions, Alerts Allergy Allergy Status Severity Reaction(s) Onset Inactive Treating Comm ents Source Name Type Date Date Clinician NO KNOWN Drug Active [facility] ALLERGIE Class ity of [facility] Social History Social Habit Start Date Stop Date Quantity Comments Source Sex Assigned At [birth year] [facility] 00:00:00 00:00:00 [facility] Smoking Status Start Date Stop Date Source Unknown if ever smoked [facility] Medications Ordered Filled Start Stop Current Ordering Indication Dosage Frequency Signature Comments Components Source Medication Medication Date Date Medication? Clinician (SIG) Name Name barium 2020- No [id number] 680mL 680 mL, Un scott sulfate 08-15 Oral, ity of (LIQUID E-Z 14:15: 14:15 [place] 60 % 00 :00 dose, Mon Med ical (w/v) oral 08/15/20 at [facility] suspension 0915, 680 mL Routine Procedures Procedure Date / Time Performed Performing Clinician Denice VALDES SMALL BOWEL SERIES 2020-08-15 18:44:34 Kd Armstrong [facility] ASSIGNMENT OF BENEFITS 2020-08-15 13:35:57 Doctor Unassigned, No [facility] Branch Encounters Start End Encounter Admission Attending Care Care Encounter Source Date/Time Date/Time Type Type Clinicians Facility Department ID 2020-08-15 2020-08-15 [facility] [id number] Univers 08:36:47 23:59:00 Encounter Kd Todd [id number] ity of [place] [id number] [facility] [id number] [facility] [address] Branch 2020-08-15 2020-08-15 [id number] [facility] 00:00:00 00:00:00 KD ity [facility] 2020-08-15 2020-08-15 Orders Doctor BENTLEY [id number] Univers 00:00:00 00:00:00 Only Unassigned, AMAURI [id number] ity of [place] [facility] [id number] [facility] [id number] [facility] [address] Branch 2017-03-13 2017-03-13 Outpatient IE IE [id number] Memoria 07:30:00 07:30:00 02 timur Stein 2017-03-13 2017-03-13 Outpatient IE IE [id number] Memoria 07:30:00 07:30:00 02 timur Stein 2016-03-06 2016-03-06 Outpatient MHIE IE [id number] Memoria 08:30:00 08:30:00 01 timur Stein 2016-03-06 2016-03-06 Outpatient IE IE [id number] Memoria 08:30:00 08:30:00 01 timur Stein 2015-02-10 2015-02-10 Outpatient IE IE [id number] Memoria 07:30:00 07:30:00 00 timur Stein 2015-02-10 2015-02-10 Outpatient IE IE [id number] Memoria 07:30:00 07:30:00 00 timur Stein Results Test Description Test Time Test Results Result Source Comments Comments FL SMALL BOWEL 2020-07-26 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 Nomucosal or functional abnormalities were observed. 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
[2023-04-01] MEDS ORDERED: ACETAMINOPHEN 500 MG TAB ONE (17:44)
[2023-04-01] MEDS ORDERED: NA CHLORIDE 0.9% 1,000 ML ONE (17:44)
[2023-04-01 17:53] LABS: Protime INR 1.27
[2023-04-01 17:54] LABS: Albumin 2.7 g/dL (3.4-5.0); Bilirubin Total 1.3 mg/dL (0.2-1.0); Protein, Total 7.5 g/dL (6.4-8.2)
[2023-04-01 18:04] LABS: Absolute Lymphocytes (CBC) 0.3 K/uL (0.7-4.9); Lymphocytes % 3.2 % (15.3-44.8); MCV 103.6 fL (80-100); MPV 7.7 fL (7.6-11.3); Platelets 156 thou/uL (152-406); RBC Red Blood Cell Count 3.28 M/uL (4.33-5.43)
--- NOTE | 2023-04-01 18:20 | RAD REPORT ---
[facility]13 [facility] CLINICAL HISTORY: Fever;Cough COMPARISON: Chest Single View dated 05/21/2022; Chest Pa And Lat (2 Views) dated 07/25/2020; Chest Sin gle View dated 10/14/2017 TECHNIQUE: Portable AP view of the chest. FINDINGS: Patient rotation somewhat limits evaluation. Decreased inspiratory effort. Right basilar a telectasis. Mild central interstitial prominence. The lungs show no focal consolidation. No pneumoth orax or effusion. Mild cardiomegaly. The mediastinal contours are unremarkable. IMPRESSION: Findings suggest mild central venous congestion or early CHF, allowing for limitations m entioned above.
[2023-04-01] MEDS ORDERED: POTASSIUM CL SA 10 MEQ TAB PO ONE (18:37)
[2023-04-01] MEDS ORDERED: AZITHROMYCIN 500 MG INJ IVPB ONE (18:53)
[2023-04-01] MEDS ORDERED: CEFTRIAXONE 1000 MG/VIAL ONE (18:53)
[2023-04-01] MEDS ORDERED: NA CHLORIDE 0.9% 250 ML ONE (18:53)
[2023-04-01] MEDS ORDERED: NA CHLORIDE 0.9% 2,000 ML ONE (18:54)
[2023-04-01 19:01] LABS: Specific Gravity > 1.030 (1.005-1.030); Urine Bacteria 20-50 /HPF (<20); Urine Bilirubin NEGATIVE (Negative); Urine Blood 3+ (OVER) (Negative); Urine Clarity Extremely Turbid (Clear); Urine Color Light-Orange (Yellow); Urine Glucose NEGATIVE (Negative); Urine Mucus 3+ /HPF (None Seen); Urine Protein 2+ (Negative); Urine RBC 21-50 /HPF (None Seen); Urine Urobilinogen Normal (Normal); Urine WBC Clump Many /HPF (None Seen)
--- NOTE | 2023-04-01 19:11 | EDPHYS ---
Physician Documentation [facility] Name: Tor Garland Age: 53 yrs Sex: Male : 1970 Arrival Date: 04/01/2023 Time: 16:57 Bed 6 Private MD: ED Physician Ezra Cruz HPI: 04/01 17:16 This 53 yrs old Male presents to ER via Unassigned with complaints of fever. rn 17:16 The patient reports fever, that was measured at 103 degrees Fahrenheit. Onset: The rn symptoms/episode began/occurred at an unknown time. Modifying factors: there are no obvious modifying factors. Associated signs and symptoms: Pertinent positives: abdominal pain, cough, Pertinent negatives: altered mental status, chest pain, diarrhea, skin rash. Severity of symptoms: At their worst the symptoms were mild in the emergency department the symptoms are unchanged. It is unknown whether or not the patient has had similar symptoms in the past. Patient brought in by EMS from care home for fever, unknown onset, cough/abdominal pain. Fever Tmax 103. Per EMS report had COVID 2 weeks ago. Patient reports abdominal pain/nausea/cough.. Historical: - Allergies: 17:19 No Known Allergies; cm10 - PMHx: 17:12 mastoiditis; mental retardation; mb9 17:19 GERD; Major depressive disorder; Insomnia; cm10 - Immunization history:: Adult Immunizations unknown. - Social history:: Smoking status: Patient denies any tobacco usage or history of. - Family history:: not pertinent. - Hospitalizations: : No recent hospitalization is reported. ROS: 17:16 Constitutional: Positive for fever Cardiovascular: Negative for chest pain, rn palpitations, and edema, Respiratory: Positive for cough Abdomen/GI: Positive for abdominal pain and nausea MS/Extremity: Negative for injury and deformity, Skin: Negative for injury, rash, and discoloration, Neuro: Positive for generalized weakness Exam: 17:16 Constitutional: Patient is somnolent but awakens to voice and holds conversation rn Head/Face: Normocephalic, atraumatic. ENT: Dry mucous membranes Cardiovascular: Regular rate and rhythm. No pulse deficits. Respiratory: No increased work of breathing, no retractions or nasal flaring. Abdomen/GI: Soft, and mid abdominal tenderness with no rebound or guarding Skin: Warm, dry MS/ Extremity: Pulses equal, no cyanosis. Neuro: Somnolent but awakens to voice, oriented to person and situation, not time. Vital Signs: 17:13 BP 99 / 49; Pulse 95; Resp 18; Temp 103.1(O); Pulse Ox 98% ; Weight 67.59 kg; cm10 17:55 BP 101 / 67; Pulse 92; Resp 18; Pulse Ox 96% on R/A; mb9 18:29 BP 91 / 41; Pulse 96; Resp 18; Temp 101.7(O); Pulse Ox 95% on R/A; cm10 18:55 BP 95 / 55; Pulse 97; Resp 18; Pulse Ox 96% on R/A; mb9 19:00 BP 90 / 44; Pulse 94; Pulse Ox 95% on R/A; km8 19:19 BP 88 / 44; Pulse 94; Pulse Ox 94% on R/A; km8 19:21 BP 83 / 51; Pulse 93; Pulse Ox 94% on R/A; km8 20:00 Temp 98.2(O); km8 20:00 BP 92 / 55; Pulse 86; Resp 18; Pulse Ox 94% on R/A; km8 20:19 BP 131 / 80; Pulse 109; Resp 26; Pulse Ox 80% on R/A; km8 20:30 BP 160 / 90; Pulse 91; Resp 24; Pulse Ox 95% on 8 lpm Simple Mask; km8 21:00 BP 172 / 102; Pulse 89; Resp 20; Pulse Ox 93% ; km8 21:30 BP 52 / 34; Pulse 92; Resp 30; Pulse Ox 99% ; km8 21:38 BP 145 / 99; Pulse 75; Resp 20 S; Pulse Ox 100% ; km8 MDM: 17:12 Patient medically screened. rn 17:53 ED course: Patient signed out to me by previous physician, improved patient arrives ec2 today due to concern for abdominal pain noted to have objective fever with soft blood pressures. Plan is to follow-up lab work, CT abdomen pelvis and chest x-ray. Concern is for possible viral process, possible bacterial infection however no clear underlying cause identified at this time. Possible admit to the hospital.. 18:26 ED course: CBC is remarkable for slight anemia with a hemoglobin of 11.4. Metabolic ec2 profile shows hypokalemia with a potassium of 3.0. Lactate is normal at 1.5. Chest x-ray shows cardiomegaly with patient malposition. . 18:41 Data reviewed: vital signs. ED course: I will add on antibiotics for pulmonary coverage ec2 given the patient's reported hypoxia with EMS however patient has not required oxygen here in the emergency department. Patient does meet SIRS criteria with the fever and the heart rate, will accordingly meet sepsis criteria with possible pulmonary pathology.. 19:10 ED course: Urine is grossly infectious appearing with leuk esterase and nitrates and ec2 WBCs present. Ceftriaxone already given for antibiotic coverage. I discussed the case with radiology with concern for pyelonephritis and hydronephrosis. We will proceed with admission for sepsis secondary to pyelonephritis. Updated the family regarding the plan of care and they are agreeable. . 19:54 ED course: Midline placed by nursing staff, patient with persistently hypotensive blood ec2 pressures, will start the patient on norepinephrine. Patient does have a normal lactic acid however after fluid resuscitation has decline in his blood pressures.. 20:40 ED course: Patient with improving blood pressure however noted to have a aspiration ec2 event after taking ibuprofen and had increasing tachypnea and hypoxia. Possible indeterminant CHF based on previous radiograph, will obtain a repeat chest x-ray. Chest x-ray independently reviewed and interpreted by me, shows increased interstitial opacities, will place patient on BiPAP for work of breathing.. 04/01 17:15 Order name: Blood Culture Adult (2) rn 04/01 17:15 Order name: CBC with Diff; Complete Time: 10:28 rn 04/01 17:15 Order name: CMP; Complete Time: 18: rn 04/01 17:15 Order name: Lactate w/ 2H reflex if indic.; Complete Time: 18: rn 04/01 17:15 Order name: Protime (+inr); Complete Time: 18:09 rn 04/01 17:15 Order name: Ptt, Activated; Complete Time: 18: rn 04/01 17:15 Order name: Urinalysis w/ reflexes; Complete Time: 19:09 rn 04/01 17:15 Order name: SARS-COV-2 RT PCR; Complete Time: 18:18 rn 04/01 17:15 Order name: Flu; Complete Time: 18:32 rn 04/01 19:04 Order name: Urine Culture EDMT 04/01 20:14 Order name: CBC with Automated Diff EDMT 04/01 20:14 Order name: CBC with Automated Diff; Complete Time: 10:28 EDMT 04/01 20:14 Order name: Comprehensive Metabolic Panel EDMT 04/01 20:14 Order name: Comprehensive Metabolic Panel; Complete Time: 10:28 EDMT 04/01 17:15 Order name: Chest Single View XRAY; Complete Time: 18:26 rn 04/01 17:16 Order name: CT Abd/Pelvis - IV Contrast Only; Complete Time: 19:17 rn 04/01 20:32 Order name: CXR XRAY ec2 04/01 21:01 Order name: RAD; Complete Time: 10:28 EDMT 04/01 17:15 Order name: EKG; Complete Time: 17:16 rn 04/01 17:15 Order name: Accucheck; Complete Time: 17:27 rn 04/01 17:15 Order name: Cardiac monitoring; Complete Time: 17:27 rn 04/01 17:15 Order name: EKG - Nurse/Tech; Complete Time: 17:27 rn 04/01 17:15 Order name: IV Saline Lock - Large Bore; Complete Time: 17:27 rn 04/01 17:15 Order name: Labs collected and sent; Complete Time: 17:27 rn 04/01 17:15 Order name: O2 Per Protocol; Complete Time: 17:27 rn 04/01 17:15 Order name: O2 Sat Monitoring; Complete Time: 17:27 rn 04/01 17:15 Order name: Vital Signs; Complete Time: 17:27 rn Administered Medications: 17:41 Drug: NS 0.9% IV 1000 ml IV at 1000 ml once Route: IV; Rate: 1000 ml; Site: right mb9 forearm; 18:54 Follow up: Response: No adverse reaction; IV Status: Completed infusion mb9 17:41 Drug: Acetaminophen PO 1000 mg PO once Route: PO; mb9 19:55 Follow up: Response: No adverse reaction km8 18:29 Drug: Potassium Chloride PO 40 mEq PO once Route: PO; cm10 19:55 Follow up: Response: No adverse reaction km8 18:40 Drug: Rocephin IV 1 grams IV at calculated rate once; Given slow IV push per pharmacy mb9 instructions Route: IV; Rate: calculated rate; Site: right forearm; 19:55 Follow up: Response: No adverse reaction; IV Status: Completed infusion km8 18:54 Drug: NS 0.9% IV 2000 ml IV at 1 bolus Per protocol; 1000 mL bolus Route: IV; Rate: 1 mb9 bolus; Site: right forearm; 20:08 Follow up: Response: No adverse reaction; IV Status: Completed infusion; IV Intake: km8 2000ml 18:54 Drug: AZITHromycin IVPB 500 mg IVPB once over 1 hrs; (mix in 250 mL NS) Route: IVPB; mb9 Infused Over: 1 hrs; Site: right forearm; 19:55 Follow up: Response: No adverse reaction; IV Status: Completed infusion; IV Intake: km8 250ml 20:08 Drug: Ibuprofen PO 800 mg PO once Route: PO; km8 20:42 Follow up: Response: Other; pt began coughing and having SOB and audible crackles km8 20:08 Drug: Norepinephrine IV 0.1 mcg/kg/min IV at calculated rate Per protocol; (Standard km8 concentration 4 mg / 250 mL D5W); Recommended max rate 3 mcg/kg/min; Titrate 0.05 mcg/kg/min as often as every 5 minutes to achieve goal (see titration policy); Goal parameter MAP greater than 65 mmHg. Route: IV; Rate: calculated rate; Site: left upper arm; 20:20 Follow up: Rate change 1 mcg/kg/min km8 22:19 Follow up: IV Status: Infusion continued upon admission; admitted with drip rate of km8 1mcg/kg/min 20:36 Drug: Ondansetron IVP 4 mg IVP once; over 2 minutes Route: IVP; Site: right forearm; km8 22:19 Follow up: Response: No adverse reaction km8 Disposition Summary: 04/01/23 19:10 Hospitalization Ordered Notes: Hospitalization Status: Inpatient Admission ec2 Provider: Ba Campos ec2 Condition: Stable ec2 Problem: new ec2 Symptoms: are unchanged ec2 Bed/Room Type: Standard ec2 Location: Intensive Care Unit(04/01/23 19:57) ec2 Room Assignment: 7-(04/01/23 20:19) mw Diagnosis - Pyelonephritis acute ec2 - UTI/ Urinary tract infection, site not specified ec2 - Sepsis, unspecified organism ec2 Forms: - Medication Reconciliation Form ec2 - SBAR form ec2 - Leadership Thank You Letter ec2 Critical care time excluding procedures: 18:41 Critical care time: Bedside Care: 30 minutes, Consultation: 5 minutes. Total time: 35 ec2 minutes Signatures: Dispatcher [employer] Paulina Mensah RN RN Remi Dempsey MD MD rn Breneman, Beronica Guadarrama, RN RN mb9 Teri Broussard RN RN cm10 Ezra Cruz MD MD 2 Kayla Winston RN RN km8 Corrections: (The following items were deleted from the chart) 18:32 17:53 ED course: Patient signed out to me by previous physician, improved patient ec2 arrives today due to concern for abdominal pain noted to have objective fever with soft blood pressures. Plan is to follow-up lab work, CT abdomen pelvis and chest x-ray. Concern is for possible viral process, possible bacterial infection however no clear underlying cause identified at this time. Likely admit to the hospital.. ec2 19:57 19:10 ED course: Urine is grossly infectious appearing with leuk esterase and nitrates ec2 and WBCs present. Ceftriaxone already given for antibiotic coverage. I discussed the case with radiology with concern for pyelonephritis and hydronephrosis. We will proceed with admission for sepsis secondary to pyelonephritis. Updated the family regarding the plan of care and they are agreeable. I discussed case with hospitalist, pending admission. . ec2 19:57 19:10 Telemetry/MedSurg (Inpatient) ec2 ec2 19:57 19:10 ec2 ec2 20:19 19:57 ec2
--- NOTE | 2023-04-01 19:11 | ER ---
Nurse's Notes [facility] Name: Tor Garland Age: 53 yrs Sex: Male : 1970 Arrival Date: 04/01/2023 Time: 16:57 Bed 6 Private MD: Diagnosis: Pyelonephritis acute;UTI/ Urinary tract infection, site not specified;Sepsis, unspecified organism Presentation: 04/01 17:13 Chief complaint: EMS states: Called to [facility] due to patient having cm10 abdominal pain. Per EMS report, pt recently discharged from hospital due to having COVID. EMS reports that patient's O2 sat decreased to 85% on RA. Coronavirus screen: Vaccine status: Patient reports receiving the 2nd dose of the covid vaccine. Ebola Screen: Patient denies travel to an Ebola-affected area in the 21 days before illness onset. No symptoms or risks identified at this time. Initial Sepsis Screen: Does the patient meet any 2 criteria? Temp <36.0*C (96.8*F)) or > 38.3*C (100.9*F). Does the patient have a suspected source of infection? No. Patient's initial sepsis screen is negative. Risk Assessment: Do you want to hurt yourself or someone else? Patient reports no desire to harm self or others. Onset of symptoms was April 01, 2023. Transition of care: patient was received from another setting of care (long-term care facility), [facility]. 17:13 Method Of Arrival: EMS: [facility] cm10 17:13 Acuity: JIMMY 3 cm10 Triage Assessment: 17:20 General: Appears in no apparent distress. comfortable. General: Behavior is calm, cm10 cooperative. Pain: Complains of pain in abdomen. EENT: No deficits noted. Neuro: No deficits noted. Lindsay Agitation-Sedation Scale (RASS): 0 - Alert and Calm Level of Consciousness is awake, alert, Oriented to person, place. Cardiovascular: No deficits noted. Patient's skin is warm and dry. Respiratory: No deficits noted. Airway is patent Respiratory effort is even, unlabored, Respiratory pattern is regular, symmetrical. GI: No deficits noted. Reports lower abdominal pain, upper abdominal pain. : No deficits noted. No signs and/or symptoms were reported regarding the genitourinary system. Derm: No deficits noted. No signs and/or symptoms reported regarding the dermatologic system. Skin is intact, Skin is pink, warm \T\ dry. Musculoskeletal: No deficits noted. No signs and/or symptoms reported regarding the musculoskeletal system. Historical: - Allergies: 17:19 No Known Allergies; cm10 - PMHx: 17:12 mastoiditis; mental retardation; mb9 17:19 GERD; Major depressive disorder; Insomnia; cm10 - Immunization history:: Adult Immunizations unknown. - Social history:: Smoking status: Patient denies any tobacco usage or history of. - Family history:: not pertinent. - Hospitalizations: : No recent hospitalization is reported. Screenin:22 [facility] ED Fall Risk Assessment (Adult) History of falling in the last 3 months, cm10 including since admission Yes- fall prone (multiple falls) (3 pts) Confusion or Disorientation Yes (5 pts) Intoxicated or Sedated No (0 pts) Impaired Gait Yes (1 pt) Mobility Assist Device Used Yes (1 pt) Altered Elimination Yes (1 pt) Score/Fall Risk Level 3 or more points = High Risk Oriented to surroundings, Maintained a safe environment, Hourly rounding (assess needs \T\ fall precautionary measures) done. Abuse screen: Denies threats or abuse. Denies injuries from another. Nutritional screening: No deficits noted. Tuberculosis screening: No symptoms or risk factors identified. Assessment: 17:27 Reassessment: see triage assessment. mb9 18:55 Reassessment: No changes from previously documented assessment. Patient and/or family mb9 updated on plan of care and expected duration. Pain level reassessed. 19:35 Reassessment: Patient appears in no apparent distress at this time. No changes from km8 previously documented assessment. Patient and/or family updated on plan of care and expected duration. Pain level reassessed. midline IV being placed by VEE Sandoval. 20:44 Reassessment: pt began coughing, O2 sats decreasing, and having audible crackles in km8 lungs; MD notified and en route to bedside; pt placed on O2 and repositioned, with some improvement; see new orders from MD. Vital Signs: 17:13 BP 99 / 49; Pulse 95; Resp 18; Temp 103.1(O); Pulse Ox 98% ; Weight 67.59 kg; cm10 17:55 BP 101 / 67; Pulse 92; Resp 18; Pulse Ox 96% on R/A; mb9 18:29 BP 91 / 41; Pulse 96; Resp 18; Temp 101.7(O); Pulse Ox 95% on R/A; cm10 18:55 BP 95 / 55; Pulse 97; Resp 18; Pulse Ox 96% on R/A; mb9 19:00 BP 90 / 44; Pulse 94; Pulse Ox 95% on R/A; km8 19:19 BP 88 / 44; Pulse 94; Pulse Ox 94% on R/A; km8 19:21 BP 83 / 51; Pulse 93; Pulse Ox 94% on R/A; km8 20:00 Temp 98.2(O); km8 20:00 BP 92 / 55; Pulse 86; Resp 18; Pulse Ox 94% on R/A; km8 20:19 BP 131 / 80; Pulse 109; Resp 26; Pulse Ox 80% on R/A; km8 20:30 BP 160 / 90; Pulse 91; Resp 24; Pulse Ox 95% on 8 lpm Simple Mask; km8 21:00 BP 172 / 102; Pulse 89; Resp 20; Pulse Ox 93% ; km8 21:30 BP 52 / 34; Pulse 92; Resp 30; Pulse Ox 99% ; km8 21:38 BP 145 / 99; Pulse 75; Resp 20 S; Pulse Ox 100% ; km8 ED Course: 17:04 Patient arrived in ED. bd 17:12 Remi Jha MD is Attending Physician. rn 17:12 Arm band placed on. mb9 17:18 Triage completed. cm10 17:22 Patient has correct armband on for positive identification. Call light in reach. Side cm10 rails up X2. Provided Education on: ER process and procedures. . Pulse ox on. NIBP on. 17:24 Beronica Lowe, RN is Primary Nurse. mb9 17:25 Inserted saline lock: 20 gauge in right forearm, using aseptic technique. mb9 17:25 EKG done, by ED staff, reviewed by Remi Jha MD. mb9 17:27 Blood Culture Adult (2) Sent. mb9 17:27 CBC with Diff Sent. mb9 17:27 CMP Sent. mb9 17:27 Protime (+inr) Sent. mb9 17:27 Ptt, Activated Sent. mb9 17:41 Flu Sent. mb9 17:41 SARS-COV-2 RT PCR Sent. mb9 17:53 Attending Physician role handed off by Remi Jha MD ec2 17:53 Ezra Cruz MD is Attending Physician. ec2 17:56 No provider procedures requiring assistance completed. mb9 18:15 Chest Single View XRAY In Process Unspecified. EDMS 18:20 CT Abd/Pelvis - IV Contrast Only In Process Unspecified. EDMS 18:56 Straight cath inserted, using sterile technique, Specimen obtained. cm10 19:10 Ba Campos MD is Hospitalizing Provider. ec2 19:52 Inserted saline lock: 20 gauge upper arm, using aseptic technique. ,using aseptic km8 technique. midline IV. 22:08 Patient admitted, IV remains in place. km8 Administered Medications: 17:41 Drug: NS 0.9% IV 1000 ml IV at 1000 ml once Route: IV; Rate: 1000 ml; Site: right mb9 forearm; 18:54 Follow up: Response: No adverse reaction; IV Status: Completed infusion mb9 17:41 Drug: Acetaminophen PO 1000 mg PO once Route: PO; mb9 19:55 Follow up: Response: No adverse reaction km8 18:29 Drug: Potassium Chloride PO 40 mEq PO once Route: PO; cm10 19:55 Follow up: Response: No adverse reaction km8 18:40 Drug: Rocephin IV 1 grams IV at calculated rate once; Given slow IV push per pharmacy mb9 instructions Route: IV; Rate: calculated rate; Site: right forearm; 19:55 Follow up: Response: No adverse reaction; IV Status: Completed infusion km8 18:54 Drug: NS 0.9% IV 2000 ml IV at 1 bolus Per protocol; 1000 mL bolus Route: IV; Rate: 1 mb9 bolus; Site: right forearm; 20:08 Follow up: Response: No adverse reaction; IV Status: Completed infusion; IV Intake: km8 2000ml 18:54 Drug: AZITHromycin IVPB 500 mg IVPB once over 1 hrs; (mix in 250 mL NS) Route: IVPB; mb9 Infused Over: 1 hrs; Site: right forearm; 19:55 Follow up: Response: No adverse reaction; IV Status: Completed infusion; IV Intake: km8 250ml 20:08 Drug: Ibuprofen PO 800 mg PO once Route: PO; km8 20:42 Follow up: Response: Other; pt began coughing and having SOB and audible crackles km8 20:08 Drug: Norepinephrine IV 0.1 mcg/kg/min IV at calculated rate Per protocol; (Standard km8 concentration 4 mg / 250 mL D5W); Recommended max rate 3 mcg/kg/min; Titrate 0.05 mcg/kg/min as often as every 5 minutes to achieve goal (see titration policy); Goal parameter MAP greater than 65 mmHg. Route: IV; Rate: calculated rate; Site: left upper arm; 20:20 Follow up: Rate change 1 mcg/kg/min km8 22:19 Follow up: IV Status: Infusion continued upon admission; admitted with drip rate of km8 1mcg/kg/min 20:36 Drug: Ondansetron IVP 4 mg IVP once; over 2 minutes Route: IVP; Site: right forearm; km8 22:19 Follow up: Response: No adverse reaction km8 Medication: 17:22 VIS not applicable for this client. cm10 Intake: 19:55 IV: 250ml; Total: 250ml. km8 20:08 IV: 2000ml; Total: 2250ml. km8 Outcome: 19:10 Decision to Hospitalize by Provider. ec2 22:08 Condition: stable km8 22:08 Condition: stable 22:08 Admitted to ICU accompanied by nurse, via stretcher, room 7, with oxygen, with chart, km8 Report called to VEE Britton 22:08 Discharge instructions given to family, Instructed on the need for admit, Demonstrated km8 understanding of instructions, 22:20 Patient left the ED. km8 Signatures: Dispatcher [employer] Shanti Gatica Roman, MD MD rn Breneman, Beronica Guadarrama RN RN mb9 Teri Broussard RN RN cm10 Ezra Cruz MD MD ec2 Kayla Winston RN RN km8
--- NOTE | 2023-04-01 19:15 | RAD REPORT ---
EXAM DESCRIPTION: CT - Abdomen Pelvis W Contrast - 04/01/2023 6:18 pm CLINICAL HISTORY: ABD PAIN COMPARISON: No comparisons TECHNIQUE: Thin cut axial CT imaging of the abdomen and pelvis was performed following intravenous a dministration of 100 mL Isovue 300. Multiplanar reformats were generated and reviewed. All CT scans are performed using dose optimization technique as appropriate and may include automated exposure control or mA/KV adjustment according to patient size. FINDINGS: No suspicious findings in the lung bases. The liver, spleen, adrenal glands, and pancreas show no suspicious findings. Gallbladder and biliary tree are also without suspicious finding. Asymmetric patchy hypoenhancement throughout the left renal cortex. Mild left hydroureteronephrosis w ith urothelial thickening and enhancement around the left renal collecting system. No radiopaque calc arabella. No soft tissue gas, gas within the renal collecting system, or abnormal fluid collections. Right upper to midpole 2 cm fluid density cyst. No dilated bowel loops or bowel wall thickening. No free air, free fluid or inflammatory stranding. N o hernia, mass or bulky lymphadenopathy. The urinary bladder is without significant finding. No suspicious bony findings. IMPRESSION: Findings suggestive of left pyelonephritis and pyonephrosis, with mild left hydrouretero nephrosis. No evidence of obstructing calculi or other complications. The findings were communicated to Ezra Cruz on 04/01/2023 at 19:09 hours.
[2023-04-01] MEDS ORDERED: ONDANSETRON 4 MG/2 ML VIAL IV PRN (20:08)
[2023-04-01] MEDS ORDERED: MORPHINE 2 MG/ML SYR IV PRN (20:08)
[2023-04-01] MEDS ORDERED: IBUPROFEN 400 MG TAB ONE (20:11)
[2023-04-01] MEDS ORDERED: NOREPINEPHRINE BITARTRATE/D5W 4 MG/250 ML BAG IV ONE ×2 (20:11→20:54)
--- NOTE | 2023-04-01 20:15 | P.HP ---
Certification for Inpatient Patient admitted to: Inpatient With expected LOS: >2 Midnights Patient will require the following post-hospital care: None Practitioner: I am a practitioner with admitting privileges, knowledge of patient current condition, hospital course, and medical plan of care. Services: Services provided to patient in accordance with Admission requirements found in Title 42 Section 412.3 of the Code of Federal Regulations Patient History Date of Service: 04/01/23 Reason for admission: FEVER History of Present Illness: 53 yrs old with past medical history of mental retardation, major depressive disorder, insomnia, GERD who started having fever which has been going on for the last 2 days and has been progressively worsening and was brought to ER. Patient is a poor historian hence most of the history is obtained from the chart review and also talking to the ER physician and family member at the bedside. Started having fever which measured even up to 103 associated with chills. He also has abdominal pain and cough. Denies any chest pain or shortness of breath. Associated with nausea but no vomiting. Patient was assessed in the ER and was found to have UTI and was started on IV antibiotics. Patient also noted to be hypotensive and was started on Levophed. Patient is being admitted for for further management in ICU . Allergies No Known Allergies Allergy (Unverified 05/21/22 13:51) Home medications list reviewed: Yes Home Medications: Amox/K Clav [Augmentin 600 MG/5 ML Susp] 5 ml PO BID #50 ml 05/22/22 - Past Medical/Surgical History Diabetic: No Past Medical History: Reviewed- Non-Contributory -: mental retardation Past Surgical History: Reviewed- Non-Contributory - Family History Family History: Reviewed- Non-Contributory - Social History Smoking Status: Never smoker CD- Drugs: No Caffeine use: No Review of Systems 10-point ROS is otherwise unremarkable General: Fever, Chills Eyes: Unremarkable ENT: Unremarkable Respiratory: Unremarkable Cardiovascular: Unremarkable Gastrointestinal: Nausea, Unremarkable Genitourinary: Dysuria, Frequency, Unremarkable Musculoskeletal: Unremarkable Integumentary: Unremarkable Neurological: Unremarkable Physical Examination - Vital Signs Temperature: 102.1 F Blood Pressure: 78/54 Pulse: 98 Respirations: 18 Pulse Ox (%): 98 - Physical Exam General: Alert, Oriented x1, Mild distress HEENT: Atraumatic, Normocephalic Neck: Supple Respiratory: Clear to auscultation bilaterally, Normal air movement Cardiovascular: Normal pulses, Regular rate/rhythm, Normal S1 S2 Capillary refill: <2 Seconds Gastrointestinal: Soft and benign, W/out hepatosplenomegaly Musculoskeletal: No clubbing, No swelling Integumentary: No rashes Neurological: Normal speech, Normal strength at 5/5 x4 extr, Other (Mentally retarded) Lymphatics: No axilla or inguinal lymphadenopathy - Studies Laboratory Data (last 24 hrs) 04/01/23 04/01/23 04/01/23 17:22 17:22 17:22 WBC 9.30 Hgb 11.4 L Hct 34.0 L Plt Count 156 PT 14.0 H INR 1.27 APTT 38.5 H Sodium 139 Potassium 3.0 L BUN 14 Creatinine 0.71 Glucose 116 H Total Bilirubin 1.3 H AST 21 ALT 22 Alkaline Phosphatase 175 H Microbiology Data (last 24 hrs): 04/01/23 17:38 Nasopharnyx Influenza Type A Antigen Screen - Final 04/01/23 17:38 Nasopharnyx Influenza Type B Antigen Screen - Final Assessment and Plan - Problems (Diagnosis) (1) Sepsis associated hypotension Current Visit: Yes Status: Acute Plan: Sepsis possibly due to UTI Septic shock Aggressive hydration Started on Levophed We will add by albumin 2 Admit to ICU We will obtain cultures Change antibiotic as per sensitivity (2) UTI (urinary tract infection) Current Visit: Yes Status: Acute Plan: UTI Possibly due to gram-negative rods Started on Zosyn Will obtain cultures We will change antibiotic as per sensitivity (3) Acute hypoxic respiratory failure Current Visit: Yes Status: Acute Plan: Patient noted to be hypoxic Started on oxygen supplementation Put on BiPAP Monitor closely (4) Pulmonary edema Current Visit: Yes Status: Acute Plan: Patient received 3 L fluid in the ER We will hold back any further fluid We will give a dose of Lasix We will get an echocardiogram Monitor closely (5) Mentally challenged Current Visit: Yes Status: Chronic Plan: Mental retardation Supportive management (6) Hypokalemia Current Visit: Yes Status: Acute Plan: Electrolytes monitor and replace accordingly Monitor under telemetry Discharge Plan: Home Plan to discharge in: Greater than 2 days - Advance Directives Does patient have a Living Will: No Does patient have a Durable POA for Healthcare: No - Code Status/Comfort Care Code Status: Full Code Physician Review: Patient Assessed, Agree with Above Assessment and Plan Time Spent Managing Pts Care (In Minutes): 48
[2023-04-01] MEDS ORDERED: ONDANSETRON 4 MG/2 ML VIAL ONE (20:38)
[2023-04-01] MEDS ORDERED: NA CHLORIDE 0.9% 1,000 ML IV SCH (21:00)
--- NOTE | 2023-04-01 21:01 | RAD REPORT ---
EXAM DESCRIPTION: RADChest Single View04/01/2023 8:42 pm CLINICAL HISTORY: COUGH COMPARISON: Chest Single View dated 04/01/2023; Chest Single View dated 05/21/2022; Chest Pa And Lat (2 Views) dated 07/25/2020; Chest Single View dated 10/14/2017 TECHNIQUE: Portable AP view of the chest. FINDINGS: Central interstitial prominence and left more than the right fluffy airspace opacities. N o pneumothorax or effusion. The cardiomediastinal contours are unremarkable. IMPRESSION: Findings suggestive of pulmonary edema as above. Possibility of superimposed infection i s less likely but not entirely exclude.
[2023-04-01] MEDS ORDERED: ALBUMIN HUMAN 25% 100 ML IV ONE (21:04)
[2023-04-01] MEDS ORDERED: FUROSEMIDE 40 MG/4 ML VIAL IV ONE (21:04)
[2023-04-01] MEDS ORDERED: SODIUM CHLORIDE 0.9% 10ML INJ IV PRN (21:05)
[2023-04-01] MEDS: NOREPINEPHRINE 4 MG in D5W 250 ML IV SCH (22:35)
[2023-04-01 22:37] LABS: Blood Morphology Comment NOT SEEN (NOT SEEN); Platelet Estimate ADEQ
[2023-04-01] MEDS: NOREPINEPHRINE BITARTRATE/D5W 4 MG/250 ML BAG IV ONE (22:47)
[2023-04-02] MEDS: PIPER TAZO 3.375 GM in NA CHLORIDE 0.9% 100 ML IV SCH ×3 (00:45→18:17)
[2023-04-02] MEDS ORDERED: NOREPINEPHRINE BITARTRATE/D5W 4 MG/250 ML BAG IV ONE ×2 (02:08→06:36)
[2023-04-02] MEDS: NOREPINEPHRINE BITARTRATE/D5W 4 MG/250 ML BAG IV ONE (02:30)
[2023-04-02] MEDS: NOREPINEPHRINE 4 MG in D5W 250 ML IV SCH ×2 (02:33→06:29)
[2023-04-02 04:28] LABS: Absolute Lymphocytes (CBC) 3.1 K/uL (0.7-4.9); Hematocrit 32.6 % (39.6-49.0); Lymphocytes % 11.3 % (15.3-44.8); MCV 104.3 fL (80-100); MPV 7.9 fL (7.6-11.3); Platelets 166 thou/uL (152-406); RBC Red Blood Cell Count 3.13 M/uL (4.33-5.43)
[2023-04-02 04:50] LABS: Albumin 2.4 g/dL (3.4-5.0); Bilirubin Total 0.7 mg/dL (0.2-1.0); Potassium 3.3 mEq/L (3.5-5.1); Protein, Total 6.6 g/dL (6.4-8.2)
[2023-04-02 05:21] LABS: Blood Morphology Comment NOT SEEN (NOT SEEN); Platelet Estimate ADEQ
--- NOTE | 2023-04-02 06:57 | P.PN ---
Date of Service: 04/02/23 Subjective: placed on BiPAP overnight nurse reports possible aspiration in ED when given ibuprofen to swallow; patient reportedly desaturated, +cough worsened remains on levophed overnight febrile overnight - 102.1 awake/alert ROS: 10 point ROS as noted above, otherwise negative Physical Exam: GEN: Alert, NAD, responds to questions HEENT: Normal conjunctiva, sclera anicteric CV: Regular rate and rhythm, no edema Pulm: Nonlabored respirations on BiPAP, diminished at bases b/l, mild b/l crackles ABD: Soft, mild abdominal tenderness on palpation, nondistended Integumentary: ~1 cm superficial scrotal wound / ulcer with mild surrounding erythema; no drainage Neuro: BIPAP in placed limiting communication, responds to questions, moves extremities Elder ordered 04/02 vitals reviewed Problem List: Septic shock secondary to left Pyelonephritis Acute hypoxic respiratory failure Scrotal wound/ulcer, superficial Hypokalemia Chronic cognitive disability / Downs syndrome Septic shock secondary to left Pyelonephritis CT abdomen (04/01): Findings suggestive of left pyelonephritis and pyonephrosis, with mild left hydroureteronephrosis. No evidence of obstructing calculi urine cx (04/01): pending blood cx (04/01): pending; +GNR on stain Continue zosyn (04/02-) 102.1 temp overnight; +leukocytosis 9 -> 27 ID consulted elder ordered 04/02 for accurate I/Os on levophed drip; wean as tolerated PRN pain medication restart IV fluids at 50cc/hr 04/02 AM, stopped overnight due to concern of pulm edema / overloaded Acute hypoxic respiratory failure noted to be hypoxic on admission. Placed on BiPAP; wean as tolerated CXR (04/01): mild central venous congestion or early CHF repeat CXR (04/01): findings suggestive of pulmonary edema possible aspiration in ED per nurse; repeat CXR ordered 04/02 for further eval Pulm consulted Scrotal wound/ulcer, superficial clean with soap/water; barrier cream to buttocks/scrotum Pressure offloading Hypokalemia Monitor and replete as needed. Chronic cognitive disability / Downs syndrome Continue supportive care. [facility] resident VTE: lovenox Code: Full Dispo: back to correction, ~3-4 days pending further improvement, cx results, afebrile > 24 hours Continue ICU level of care
[2023-04-02] MEDS: NA CHLORIDE 0.9% 1,000 ML IV SCH (08:12)
[2023-04-02] MEDS: PANTOPRAZOLE 40 MG INJ IVP SCH (08:12)
--- NOTE | 2023-04-02 08:22 | P.CNS ---
Date of Consult: 04/02/23 Reason for Consult: septic shock, pyelo, scrotal wound Chief Complaint: FEVER History of Present Illness: Patient is a 53 yo male with a medical history of down syndrome who presented to the ED with complaints of fever which had been ongoing for about 2 days prior to admission. Patient admitted for septic shock secondary to pyelonephritis. He was started on empiric IV antibiotics and infectious disease was consulted. Allergies No Known Allergies Allergy (Unverified 05/21/22 13:51) Home medications list reviewed: Yes Home Medications: ARIPiprazole [Aripiprazole] 2 mg PO BEDTIME 04/02/23 Acetaminophen 650 mg PO Q8HR PRN 04/02/23 Baclofen 5 mg PO 1X 04/02/23 Famotidine 20 mg PO BEDTIME 04/02/23 Fluocinolone Acetonide Otic 0.01 % OTIC BEDTIME PRN 04/02/23 Guaifenesin [Cough Syrup] 10 ml PO Q6HR PRN 04/02/23 Melatonin/Pyridoxine [Melatonin 5 mg Tablet] 10 mg PO BEDTIME 04/02/23 Multivitamin [Multiple Vitamins] 1 tab PO 1X 04/02/23 PARoxetine HCL [Paroxetine HCl] 10 mg PO BEDTIME 04/02/23 Tolnaftate [Tolcylen] 1 % TOP BID 04/02/23 - Past Medical/Surgical History Diabetic: No -: mental retardation - Social History Alcohol use: No CD- Drugs: No Caffeine use: No Place of Residence: [place] Review of Systems 10-point ROS is otherwise unremarkable General: Weakness Gastrointestinal: Abdominal Pain Physical Examination Temp Pulse Resp BP Pulse Ox 96.8 F 54 15 117/68 100 04/02/23 06:30 04/02/23 06:30 04/02/23 06:30 04/02/23 06:30 04/02/23 06:30 General: In no apparent distress HEENT: Sclerae nonicteric Neck: Supple Respiratory: Diminished, Other (on BiPAP) Cardiovascular: No edema, Regular rate/rhythm Gastrointestinal: Normal bowel sounds, Non-distended, Tenderness (mild tenderness on palpation) Integumentary: Skin breakdown (posterior scrotum superficial wound), Other (scrotal erythema ) Laboratory Data - Reviewed Microbiology Data - Reviewed Imagings Data: - Reviewed Conclusions/Impression: Problem List Septic shock secondary to pyelonephritis Scrotal superficial wound Down Syndrome Acute Hypoxic Respiratory Failure Septic Shock secondary to Pyelonephritis - CT abdomen pelvis 04/01: "Findings suggestive of left pyelonephritis and pyonephrosis, with mild left hydroureteronephrosis. No evidence of obstructing calculi or other complications." - Blood cultures 04/01: gram stain with gram-negative rods in 1/4 bottles. Pending final results - Urine culture 04/01: Pending - Started on Zosyn 04/02 - Leukocytosis (WBC 27.4) - 24 hour tmax = 102.1 F [recorded on 04/01 at 21:07] Acute Hypoxic Respiratory Failure - On BiPAP - Pulmonology consulted Recommendations - Currently on Zosyn, continue for now. - Will follow up with final blood and urine culture results and adjust abx as appropriate - Monitor WBC and fever trends - Scrotal wound: clean with mild soap and water, pat dry, then apply zinc-based barrier cream (Calazime) to buttocks/scrotum. BID and PRN if soiled. - Pressure offloading measures - Continue supportive care Case discussed with Mckenna Rodriguez.
--- NOTE | 2023-04-02 09:30 | RAD REPORT ---
EXAM DESCRIPTION: Akash Single View04/02/2023 9:10 am CLINICAL HISTORY: Hypoxia COMPARISON: April 01, 2023 FINDINGS: Mild improvement in moderate left and mild right pulmonary opacities Heart is normal size
[2023-04-02] MEDS: NOREPINEPHRINE BITARTRATE/D5W 4 MG/250 ML BAG IV SCH ×2 (11:25→21:56)
--- NOTE | 2023-04-02 11:48 | P.CNS ---
Date of Consult: 04/02/23 Reason for Consult: Septic shock Chief Complaint: FEVER History of Present Illness: Patient is 53 years of age with a history of Down syndrome depression the past 2 days is gotten worse admitted with fever hypotension also complaining of some abdominal pain was diagnosed with polynephritis and is stable on BiPAP 5 Allergies No Known Allergies Allergy (Unverified 05/21/22 13:51) Home Medications: ARIPiprazole [Aripiprazole] 2 mg PO BEDTIME 04/02/23 Acetaminophen 650 mg PO Q8HR PRN 04/02/23 Baclofen 5 mg PO 1X 04/02/23 Famotidine 20 mg PO BEDTIME 04/02/23 Fluocinolone Acetonide Otic 0.01 % OTIC BEDTIME PRN 04/02/23 Guaifenesin [Cough Syrup] 10 ml PO Q6HR PRN 04/02/23 Melatonin/Pyridoxine [Melatonin 5 mg Tablet] 10 mg PO BEDTIME 04/02/23 Multivitamin [Multiple Vitamins] 1 tab PO 1X 04/02/23 PARoxetine HCL [Paroxetine HCl] 10 mg PO BEDTIME 04/02/23 Tolnaftate [Tolcylen] 1 % TOP BID 04/02/23 - Past Medical/Surgical History Diabetic: No -: mental retardation - Social History Alcohol use: No CD- Drugs: No Caffeine use: No Place of Residence: Group Home Review of Systems is unable to be obtained Physical Examination Temp Pulse Resp BP Pulse Ox 97.1 F 65 16 114/73 98 04/02/23 08:00 04/02/23 10:30 04/02/23 10:30 04/02/23 10:30 04/02/23 10:30 General: Alert, Cooperative Respiratory: Clear to auscultation bilaterally Cardiovascular: No edema, Regular rate/rhythm, Normal S1 S2 Gastrointestinal: Normal bowel sounds, Soft and benign Musculoskeletal: No clubbing, No swelling Laboratory Data (last 24 hrs) 04/01/23 04/01/23 04/01/23 17:22 17:22 17:22 WBC 9.30 Hgb 11.4 L Hct 34.0 L Plt Count 156 PT 14.0 H INR 1.27 APTT 38.5 H Sodium 139 Potassium 3.0 L BUN 14 Creatinine 0.71 Glucose 116 H Total Bilirubin 1.3 H AST 21 ALT 22 Alkaline Phosphatase 175 H - Problems (1) Septic shock Current Visit: Yes Status: Acute Plan: Patient is 53 years of age admitted with left-sided pyelonephritis associated with septic shock plan to resuscitate with IV fluid boluses and off vasopressors Labs CAT scans reviewed white count elevated discussed with the nursing staff x-ray reviewed culture results are pending will adjust antibiotics accordingly
[2023-04-02] MEDS: NA CHLORIDE 0.9% 500 ML IV PRN ×2 (12:45→13:18)
[2023-04-02] MEDS ORDERED: POTASSIUM 25 MEQ EFFERV TAB PO ONE (17:41)
[2023-04-02] MEDS: ENOXAPARIN 30 MG/0.3 ML SQ SCH (18:18)
[2023-04-02] MEDS: ACETAMINOPHEN 500 MG TAB PO PRN (20:00)
[2023-04-02] MEDS: MELATONIN 5 MG TABLET PO PRN (21:57)
[2023-04-03] MEDS: PIPER TAZO 3.375 GM in NA CHLORIDE 0.9% 100 ML IV SCH ×3 (00:24→16:48)
[2023-04-03] MEDS: NA CHLORIDE 0.9% 1,000 ML IV SCH ×2 (03:36→23:47)
[2023-04-03 04:33] LABS: Absolute Lymphocytes (CBC) 1.7 K/uL (0.7-4.9); Hematocrit 30.8 % (39.6-49.0); Lymphocytes % 14.2 % (15.3-44.8); MCV 103.7 fL (80-100); MPV 8.4 fL (7.6-11.3); Platelets 133 thou/uL (152-406); RBC Red Blood Cell Count 2.97 M/uL (4.33-5.43)
[2023-04-03 04:53] LABS: Magnesium 1.9 mg/dL (1.6-2.4); Potassium 3.6 mEq/L (3.5-5.1)
--- NOTE | 2023-04-03 07:45 | P.PN ---
Date of Service: 04/03/23 Subjective: Abdominal pain continues; slightly improved Doesn't feel anything is worse Weaned off BiPAP; currently on 2L NC - breathing improving awake/alert; responding to questions more appropriately remains on levophed - BP dropped today per nurses when trying to wean levo to .08mcg/kg/min; subsequently increased to 0.1 afebrile ROS: 10 point ROS as noted above, otherwise negative Physical Exam: GEN: Alert, NAD, responds to questions HEENT: Normal conjunctiva, sclera anicteric CV: Regular rate and rhythm, no edema Pulm: Nonlabored respirations on 2L NC, diminished at bases b/l, mild b/l crackles ABD: Soft, mild abdominal tenderness on palpation, nondistended Integumentary: ~1 cm superficial scrotal wound / ulcer with mild surrounding erythema; no drainage Neuro: responds to questions, moves extremities Elder in place vitals reviewed Problem List: Septic shock secondary to left Pyelonephritis Gram negative Bacteremia Acute hypoxic respiratory failure Scrotal wound/ulcer, superficial Hypokalemia Chronic cognitive disability / Downs syndrome Septic shock secondary to left Pyelonephritis Gram negative Bacteremia CT abdomen (04/01): Findings suggestive of left pyelonephritis and pyonephrosis, with mild left hydroureteronephrosis. No evidence of obstructing calculi urine cx (04/01): pending blood cx (04/01): GNR Continue zosyn (04/02-) afebrile; +leukocytosis improving 27.4 -> 11.9 ID consulted elder placed 04/02 for accurate I/Os; ~4L emptied last 24hrs on levophed drip; wean as tolerated PRN pain medication continue IV fluids at 50cc/hr given 500 ml bolus x1 04/03 AM Acute hypoxic respiratory failure noted to be hypoxic on admission. Initially placed on BiPAP CXR (04/01): mild central venous congestion or early CHF repeat CXR (04/01): findings suggestive of pulmonary edema repeat CXR (04/02): mild improvement in mod left and mild right pulmonary opacities Off BiPAP 04/03; weaned down to 2L NC Pulm consulted Scrotal wound/ulcer, superficial clean with soap/water; barrier cream to buttocks/scrotum Pressure offloading Hypokalemia Monitor and replete as needed. Chronic cognitive disability / Downs syndrome Continue supportive care. [facility] VTE: lovenox Code: Full Dispo: back to [facility], ~2-3 days pending further improvement, cx results, afebrile > 24 hours Continue ICU level of care
[2023-04-03] MEDS: PANTOPRAZOLE 40 MG INJ IVP SCH (07:55)
[2023-04-03] MEDS ORDERED: NA CHLORIDE 0.9% 500 ML IV ONE (08:04)
--- NOTE | 2023-04-03 08:55 | P.PN ---
Date of Service: 04/03/23 Chief Complaint: FEVER Subjective: Patient remains in ICU on levophed drip. In no apparent distress. Breathing comfortably on room air at this time. Patient reports abdominal tenderness. No acute events reported overnight. Physical Examination Temp Pulse Resp BP Pulse Ox 97.8 F 70 22 H 128/81 98 04/03/23 06:45 04/03/23 06:45 04/03/23 06:45 04/03/23 06:45 04/03/23 06:45 General: In no apparent distress HEENT: Sclerae nonicteric Neck: Supple Respiratory: Diminished. On room air/ intermittent use of 2L nasal cannula. Cardiovascular: No edema, Regular rate/rhythm Gastrointestinal: Normal bowel sounds, Non-distended. Mild tenderness on palpation. Integumentary: Skin breakdown posterior scrotum superficial wound with surrounding erythema Laboratory Data - Reviewed Microbiology Data - Reviewed Imagings Data: - Reviewed Medications List: Reviewed Assessment and Plan Problem List Septic shock secondary to pyelonephritis Scrotal superficial wound Down Syndrome Acute Hypoxic Respiratory Failure Septic Shock secondary to Pyelonephritis - CT abdomen pelvis 04/01: "Findings suggestive of left pyelonephritis and pyonephrosis, with mild left hydroureteronephrosis. No evidence of obstructing calculi or other complications." - Blood cultures 04/01: gram stain with gram-negative rods in 1/4 bottles. Pending final results - Urine culture 04/01: >100,00 CFU/mL; pending final culture results - Started on Zosyn 04/02 - Leukocytosis improving (WBC 27.4 -> 11.9) - Afebrile 24 hours Acute Hypoxic Respiratory Failure - On BiPAP - Pulmonology consulted - Negative Influenza and Negative Covid Recommendations - Currently on Zosyn, continue for now. - Will follow up with final blood and urine culture results and adjust abx as appropriate - Monitor WBC and fever trends - Scrotal wound: clean with mild soap and water, pat dry, then apply zinc-based barrier cream (Calazime) to buttocks/scrotum. BID and PRN if soiled. - Pressure offloading measures - Continue supportive care - Wean off pressors as tolerated Case discussed with Kelly Rodriguez
[2023-04-03] MEDS: NOREPINEPHRINE BITARTRATE/D5W 4 MG/250 ML BAG IV SCH ×2 (09:47→19:50)
--- NOTE | 2023-04-03 11:46 | P.PN ---
Subjective Date of Service: 04/03/23 Chief Complaint: Septic shock Subjective: Improving (Patient is improving doing well he is alert responsive cooperative and low-dose of Levophed) Review of Systems is unable to be obtained Physical Examination - Vital Signs Temperature: 97.8 F Blood Pressure: 128/81 Pulse: 70 Respirations: 22 Pulse Ox (%): 98 - Physical Exam General: Alert, Cooperative Neck: No Thyromegaly Respiratory: Clear to auscultation bilaterally, Dull Cardiovascular: No edema, Regular rate/rhythm, Normal S1 S2 Gastrointestinal: Normal bowel sounds, Soft and benign - Studies Microbiology Data (last 24 hrs): 04/01/23 17:15 Blood - Blood Gram Stain - Final Assessment And Plan - Current Problems (Diagnosis) (1) Septic shock Current Visit: Yes Status: Acute Plan: Gram-negative rods isolated most likely E. coli secondary to pyelonephritis improving we will bolus another 500 cc of normal saline wean off Levophed Labs chemistries reviewed white count has declined significantly continue with Zosyn await ID and then narrow the antibiotic regimen accordingly [place] vital signs are all stable's stable to be transferred to the floor once weaned off the vasopressors Physician Review: Patient Assessed, Agree with Above Assessment and Plan
[2023-04-03] MEDS: ENOXAPARIN 30 MG/0.3 ML SQ SCH (16:49)
[2023-04-04] MEDS: PIPER TAZO 3.375 GM in NA CHLORIDE 0.9% 100 ML IV SCH ×2 (00:06→09:59)
[2023-04-04 04:42] LABS: Absolute Lymphocytes (CBC) 1.8 K/uL (0.7-4.9); Hematocrit 30.4 % (39.6-49.0); Lymphocytes % 19.4 % (15.3-44.8); MCV 102.4 fL (80-100); MPV 8.4 fL (7.6-11.3); Platelets 148 thou/uL (152-406); RBC Red Blood Cell Count 2.97 M/uL (4.33-5.43)
[2023-04-04 05:08] LABS: Potassium 3.2 mEq/L (3.5-5.1)
[2023-04-04] MEDS: NOREPINEPHRINE BITARTRATE/D5W 4 MG/250 ML BAG IV SCH (05:57)
[2023-04-04] MEDS ORDERED: POTASSIUM 25 MEQ EFFERV TAB PO ONE ×2 (06:50→13:00)
--- NOTE | 2023-04-04 06:53 | P.PN ---
Date of Service: 04/04/23 Subjective: no acute events overnight Feels abdominal/suprapubic pain; unable to elaborate if better/worse off O2 supplementation today; breathing okay on room air remains on levophed drip afebrile ROS: 10 point ROS as noted above, otherwise negative Physical Exam: GEN: Alert, NAD, responds to questions HEENT: Normal conjunctiva, sclera anicteric CV: Regular rate and rhythm, no edema Pulm: Nonlabored respirations on room air, diminished at bases b/l, mild b/l crackles ABD: Soft,mild suprapubic tenderness on palpation, nondistended Integumentary: ~1 cm superficial scrotal wound / ulcer with mild surrounding erythema; no drainage Neuro: responds to questions, moves extremities Elder in place vitals reviewed Problem List: Septic shock secondary to left Pyelonephritis E. Coli Bacteremia secondary to UTI Acute hypoxic respiratory failure Scrotal wound/ulcer, superficial Hypokalemia Chronic cognitive disability / Downs syndrome Septic shock secondary to left Pyelonephritis E. Coli Bacteremia secondary to UTI CT abdomen (04/01): Findings suggestive of left pyelonephritis and pyonephrosis, with mild left hydroureteronephrosis. No evidence of obstructing calculi urine cx (04/01): E. coli blood cx (04/01): E. coli Continue zosyn (04/02-) x2 weeks total antibiotic course per ID; can switch to oral in next day or 2 afebrile; +leukocytosis improving 11.9 -> 9.1 ID consulted elder placed 04/02 for accurate I/Os on levophed drip; wean as tolerated check AM cortisol level 04/04, discussed with Dr. Oliver, added hydrocortisone for possible adrenal insufficiency component PRN pain medication continue IV fluids at 50cc/hr given 500 ml bolus x1 8 AM Acute hypoxic respiratory failure noted to be hypoxic on admission. Initially placed on BiPAP CXR (04/01): mild central venous congestion or early CHF repeat CXR (04/01): findings suggestive of pulmonary edema repeat CXR (04/02): mild improvement in mod left and mild right pulmonary opacities Off BiPAP 04/03; Breathing okay on room air 04/04 Pulm consulted Scrotal wound/ulcer, superficial clean with soap/water; barrier cream to buttocks/scrotum Pressure offloading Hypokalemia Monitor and replete as needed. Chronic cognitive disability / Downs syndrome Continue supportive care. [facility] resident VTE: lovenox Code: Full Dispo: back to snf - [facility], ~ 2-3 days pending further improvement, cx results, afebrile > 24 hours Continue ICU level of care - possible downgrade once stable off levophed drip
--- NOTE | 2023-04-04 08:32 | P.PN ---
Date of Service: 04/04/23 Chief Complaint: FEVER Subjective: Improving. No acute events reported overnight. Patient sitting up in bed. In no apparent distress. (+) lower abdominal pain Physical Examination Temp Pulse Resp BP Pulse Ox 97.6 F 72 21 H 126/81 93 04/04/23 06:45 04/04/23 06:45 04/04/23 06:45 04/04/23 06:45 04/04/23 06:45 General: Awake, In no apparent distress HEENT: Sclerae nonicteric Neck: Supple Respiratory: Diminished. Breathing comfortably on room air. Cardiovascular: No edema, Regular rate/rhythm Gastrointestinal: Normal bowel sounds, Non-distended. Mild tenderness on palpation. Integumentary: Skin breakdown posterior scrotum superficial wound with surrounding erythema Laboratory Data - Reviewed Microbiology Data - Reviewed Imagings Data: - Reviewed Medications List: Reviewed Assessment and Plan Problem List Septic shock secondary to pyelonephritis Scrotal superficial wound Down Syndrome Acute Hypoxic Respiratory Failure Septic Shock secondary to Pyelonephritis E. coli Bacteremia secondary to Urinary Tract Infection - CT abdomen pelvis 04/01: "Findings suggestive of left pyelonephritis and pyonephrosis, with mild left hydroureteronephrosis. No evidence of obstructing calculi or other complications." - Blood cultures 04/01: Escherichia coli in 2 of 4 bottles - Urine culture 04/01: Escherichia coli ; >100,00 CFU/mL - Started on Zosyn 04/02 - Leukocytosis resolved - Afebrile Acute Hypoxic Respiratory Failure - Previously on BiPAP. - Pulmonology following - Negative Influenza and Negative Covid Recommendations - Bacteremia, Pyelonephritis: Continue antibiotic therapy for 14 days. - Currently on Zosyn, continue for now. Consider switch to Ciprofloxacin 500mg PO BID to complete remainder of antibiotic course. - Monitor WBC and fever trends - Scrotal wound: clean with mild soap and water, pat dry, then apply zinc-based barrier cream to buttocks/scrotum. BID and PRN if soiled. - Pressure offloading measures - Continue supportive care Case discussed with Kelly Rodriguez
[2023-04-04] MEDS ORDERED: HYDROCORTISONE SUC 100 MG INJ IV SCH (12:00)
[2023-04-04] MEDS: HYDROCORTISONE SUC 100 MG INJ IV SCH ×2 (14:06→20:37)
[2023-04-04] MEDS: PANTOPRAZOLE 40 MG INJ IVP SCH (14:07)
[2023-04-04] MEDS ORDERED: CEFTRIAXONE 1000 MG/VIAL ONE (14:42)
[2023-04-04] MEDS ORDERED: NA CHLORIDE 0.9% 50 ML ONE (16:06)
[2023-04-04] MEDS: CEFTRIAXONE 1,000 MG in NA CHLORIDE 0.9% 50 ML IVPB SCH (18:27)
[2023-04-04] MEDS: ENOXAPARIN 30 MG/0.3 ML SQ SCH (18:27)
[2023-04-04] MEDS: ACETAMINOPHEN 500 MG TAB PO PRN (20:37)
[2023-04-04] MEDS: MELATONIN 5 MG TABLET PO PRN (20:38)
[2023-04-04] MEDS: NA CHLORIDE 0.9% 1,000 ML IV SCH (20:38)
[2023-04-04] MEDS ORDERED: ACETAMINOPHEN 500 MG TAB ONE (20:48)
[2023-04-05 05:09] LABS: Hematocrit 30.5 % (39.6-49.0); Lymphocytes % 19.5 % (15.3-44.8); MCV 102.5 fL (80-100); MPV 8.7 fL (7.6-11.3); Platelets 129 thou/uL (152-406); RBC Red Blood Cell Count 2.98 M/uL (4.33-5.43)
[2023-04-05 05:23] LABS: Magnesium 2.1 mg/dL (1.6-2.4); Potassium 3.1 mEq/L (3.5-5.1)
--- NOTE | 2023-04-05 07:39 | RAD REPORT ---
EXAM DESCRIPTION: US - Renal Ultrasound-Complete - 04/05/2023 7:25 am CLINICAL HISTORY: pyelo, f/u hydroureteronephrosis COMPARISON: Abdomen Pelvis W Contrast dated 04/01/2023 FINDINGS: Both kidneys are normal in size, shape and echotexture. The right kidney measures 11.1 x 4.8 x 3.8 cm. No hydronephrosis, focal mass or perinephric fluid. 2 cm benign right renal cyst. The left kidney measures 10.5 x 5.4 x 4.5 cm. No hydronephrosis, focal mass or perinephric fluid. The urinary bladder is incompletely distended without gross abnormality seen. IMPRESSION: Unremarkable renal sonogram.
[2023-04-05] MEDS ORDERED: POTASSIUM 25 MEQ EFFERV TAB PO ONE ×2 (07:56→16:35)
--- NOTE | 2023-04-05 08:03 | P.PN ---
Date of Service: 04/05/23 Subjective: off levo since 04/04 ~noon abdominal/suprapubic pain continues; unable to elaborate further Breathing okay on room air mild hematuria noted yesterday pm per nurses; pink/red urine in bag during rounds this morning afebrile ROS: 10 point ROS as noted above, otherwise negative Physical Exam: GEN: Alert, NAD, responds to questions HEENT: Normal conjunctiva, sclera anicteric CV: Regular rate and rhythm, no edema Pulm: Nonlabored respirations on room air, diminished at bases b/l, mild b/l crackles ABD: Soft,mild suprapubic tenderness on palpation, nondistended Integumentary: ~1 cm superficial scrotal wound / ulcer with mild surrounding er ythema; no drainage Neuro: responds to questions, moves extremities Elder in place, pink/red urine in bag 04/05 vitals reviewed Problem List: Septic shock secondary to left Pyelonephritis E. Coli Bacteremia secondary to UTI Mild Hematuria Acute hypoxic respiratory failure Scrotal wound/ulcer, superficial Hypokalemia Chronic cognitive disability / Downs syndrome Septic shock secondary to left Pyelonephritis E. Coli Bacteremia secondary to UTI Mild Hematuria CT abdomen (04/01): Findings suggestive of left pyelonephritis and pyonephrosis, with mild left hydroureteronephrosis. No evidence of obstructing calculi renal u/s (04/05): 2cm benign right renal cyst otherwise unremarkable. urine cx (04/01): E. coli blood cx (04/01): E. coli Continue Rocephin (04/04-) switched from Zosyn (04/02-04/04) given cx results x2 weeks total antibiotic course per ID; can switch to oral in next day or 2 afebrile; +leukocytosis resolved ID consulted elder placed 04/02 for accurate I/Os mild hematuria noted yesterday pm per nurses; urine is pink/red in color during rounds this morning. Monitor H&H. off levophed drip since 04/04 ~noon given hydrocortisone for possible adrenal insufficiency component 04/04 PRN pain medication continue IV fluids at 50cc/hr given 500 ml bolus x1 11/8 AM Acute hypoxic respiratory failure noted to be hypoxic on admission. Initially placed on BiPAP CXR (04/01): mild central venous congestion or early CHF repeat CXR (04/01): findings suggestive of pulmonary edema repeat CXR (04/02): mild improvement in mod left and mild right pulmonary opacities Off BiPAP 04/03; Breathing okay on room air 04/04 Pulm consulted Scrotal wound/ulcer, superficial clean with soap/water; barrier cream to buttocks/scrotum Pressure offloading Hypokalemia Monitor and replete as needed. Chronic cognitive disability / Downs syndrome Continue supportive care. residential intermediate resident VTE: [place] dc'd 04/05 due to hematuria, continue scds Code: Full Dispo: back to intermediate - [place], ~ 2-3 days pending further improvement Continue ICU level of care , possible downgrade later today/tomorrow
[2023-04-05] MEDS ORDERED: CEFTRIAXONE 1000 MG/VIAL ONE (08:38)
[2023-04-05] MEDS ORDERED: POTASSIUM 25 MEQ EFFERV TAB ONE ×2 (08:39→17:01)
[2023-04-05] MEDS ORDERED: NA CHLORIDE 0.9% 100 ML ONE (08:39)
[2023-04-05] MEDS: CEFTRIAXONE 1,000 MG in NA CHLORIDE 0.9% 50 ML IVPB SCH (08:49)
--- NOTE | 2023-04-05 08:49 | P.PN ---
Subjective Date of Service: 04/05/23 Chief Complaint: Septic shock Subjective: Improving (Patient is doing much better is off vasopressors little confused) Review of Systems is unable to be obtained Physical Examination - Vital Signs Temperature: 97.3 F Blood Pressure: 116/81 Pulse: 95 Respirations: 14 Pulse Ox (%): 94 - Physical Exam General: Alert, Cooperative Respiratory: Clear to auscultation bilaterally Cardiovascular: No edema, Normal pulses - Studies Microbiology Data (last 24 hrs): 04/01/23 17:15 Blood - Blood Aerobic Blood Culture - Final Gram Neg Jose Escherichia Coli 04/01/23 17:15 Blood - Blood Anaerobic Blood Culture - Final Escherichia Coli 04/01/23 17:15 Blood - Blood Gram Stain - Final 04/01/23 18:50 Clean Catch Urine E[place]on Count - Final >100,000 CFU/ML. 04/01/23 18:50 Clean Catch Urine - Final Escherichia Coli Gram Neg Jose Assessment And Plan - Current Problems (Diagnosis) (1) Septic shock Current Visit: Yes Status: Acute Plan: Patient is 53 years of age admitted with septic shock is improving E. coli isolated patient is off vasopressors continue with IV Rocephin patient is mildly hypokalemic patient got hydrocortisone we will DC that today Physician Review: Patient Assessed, Agree with Above Assessment and Plan
--- NOTE | 2023-04-05 08:50 | P.PN ---
Date of Service: 04/05/23 Chief Complaint: FEVER Subjective: Patient seen and examined at bedside. In no apparent distress. Unlabored respirations on room air. Continued to report lower abdominal pain Physical Examination Temp Pulse Resp BP Pulse Ox 97.3 F 95 H 14 116/81 94 04/05/23 04:00 04/05/23 06:00 04/05/23 06:00 04/05/23 06:00 04/05/23 06:00 General: Awake, In no apparent distress HEENT: Sclerae nonicteric. Dry mucous membranes. Neck: Supple Respiratory: Diminished. Breathing comfortably on room air. Cardiovascular: No edema, Regular rate/rhythm Gastrointestinal: Normal bowel sounds, Non-distended. Mild tenderness on palpation. Integumentary: Skin breakdown posterior scrotum superficial wound with surrounding erythema Laboratory Data - Reviewed Microbiology Data - Reviewed Imagings Data: - Reviewed Medications List: Reviewed Assessment and Plan Problem List Septic shock secondary to pyelonephritis Scrotal superficial wound Down Syndrome Acute Hypoxic Respiratory Failure Septic Shock secondary to Pyelonephritis E. coli Bacteremia secondary to Urinary Tract Infection - CT abdomen pelvis 04/01: "Findings suggestive of left pyelonephritis and pyonephrosis, with mild left hydroureteronephrosis. No evidence of obstructing calculi or other complications." - Blood cultures 04/01: Escherichia coli in 2 of 4 bottles - Urine culture 04/01: Escherichia coli ; >100,00 CFU/mL - Previously on Zosyn (04/02-04/04). Switched to Ceftriaxone 04/04. - Leukocytosis resolved. Afebrile Acute Hypoxic Respiratory Failure - Previously on BiPAP. Weaned off supplemental oxygen. - Pulmonology following - Negative Influenza and Negative Covid Recommendations - Bacteremia, Pyelonephritis: Continue antibiotic therapy for 14 days. - Consider switch to Ciprofloxacin 500mg PO BID to complete remainder of antibiotic course. - Monitor WBC and fever trends - Scrotal wound: clean with mild soap and water, pat dry, then apply zinc-based barrier cream to buttocks/scrotum. BID and PRN if soiled. - Pressure offloading measures - Continue supportive care Case discussed with Kelly Rodriguez
[2023-04-05] MEDS: NA CHLORIDE 0.9% 1,000 ML IV SCH ×2 (12:32→23:36)
[2023-04-05] MEDS ORDERED: NA CHLORIDE 0.9% 1,000 ML ONE (12:44)
[2023-04-05] MEDS ORDERED: HOME MED 1 EA UNK (Aripiprazole [Abilify] 2 MG Tablet) PO SCH (21:00)
[2023-04-05] MEDS: HOME MED 1 EA UNK (Aripiprazole [Abilify] 2 MG Tablet) PO SCH (21:21)
[2023-04-06] MEDS ORDERED: POTASSIUM 25 MEQ EFFERV TAB PO ONE ×3 (00:23→09:00)
[2023-04-06] MEDS ORDERED: POTASSIUM 25 MEQ EFFERV TAB ONE (00:59)
[2023-04-06 01:20] VITALS: BMI 28.9
[2023-04-06] MEDS: NA CHLORIDE 0.9% 1,000 ML IV SCH ×4 (04:49→23:17)
[2023-04-06 05:22] LABS: Hematocrit 30.4 % (39.6-49.0); Lymphocytes % 32.7 % (15.3-44.8); MCV 103.1 fL (80-100); MPV 8.5 fL (7.6-11.3); Platelets 165 thou/uL (152-406); RBC Red Blood Cell Count 2.95 M/uL (4.33-5.43)
[2023-04-06 05:38] LABS: Magnesium 2.3 mg/dL (1.6-2.4); Potassium 3.7 mEq/L (3.5-5.1)
--- NOTE | 2023-04-06 07:51 | P.PN ---
Date of Service: 04/06/23 Subjective: remains off levo since 04/04; BP low-normal, 100-120s systolic hematuria improved; tentative plan to dc elder today suprapubic pain continues no acute events overnight afebrile ROS: 10 point ROS as noted above, otherwise negative Physical Exam: GEN: Alert, NAD, responds to questions HEENT: Normal conjunctiva, sclera anicteric CV: Regular rate and rhythm, no edema Pulm: Nonlabored respirations on room air, diminished at bases b/l, mild b/l crackles ABD: Soft, mild suprapubic tenderness on palpation, nondistended Integumentary: ~1 cm superficial scrotal wound / ulcer with mild surrounding erythema; no drainage Neuro: responds to questions, moves extremities vitals reviewed Problem List: Septic shock secondary to left Pyelonephritis E. Coli Bacteremia secondary to UTI Mild Hematuria, resolved Acute hypoxic respiratory failure Scrotal wound/ulcer, superficial Hypokalemia Chronic cognitive disability / Downs syndrome Septic shock secondary to left Pyelonephritis E. Coli Bacteremia secondary to UTI Mild Hematuria, resolved CT abdomen (04/01): Findings suggestive of left pyelonephritis and pyonephrosis, with mild left hydroureteronephrosis. No evidence of obstructing calculi renal u/s (04/05): 2cm benign right renal cyst otherwise unremarkable. urine cx (04/01): E. coli blood cx (04/01): E. coli Continue Rocephin (04/04-) switched from Zosyn (04/02-04/04) given cx results x2 weeks total antibiotic course per ID; can switch to oral in next day or 2 afebrile; +leukocytosis resolved ID consulted elder placed 04/02 for accurate I/Os dc elder today (04/06) mild hematuria noted 04/04 pm per nurses; resolved (04/06) off levophed drip since 04/04 ~noon given hydrocortisone for possible adrenal insufficiency component 04/04 PRN pain medication Continue IV fluids, decreased to 50cc/hr (04/06) Acute hypoxic respiratory failure noted to be hypoxic on admission. Initially placed on BiPAP CXR (04/01): mild central venous congestion or early CHF repeat CXR (04/01): findings suggestive of pulmonary edema repeat CXR (04/02): mild improvement in mod left and mild right pulmonary opacities Off BiPAP 04/03; Breathing okay on room air 04/04 Pulm consulted Scrotal wound/ulcer, superficial clean with soap/water; barrier cream to buttocks/scrotum Pressure offloading Hypokalemia Monitor and replete as needed. Chronic cognitive disability / Downs syndrome Continue supportive care. alf intermediate resident VTE: [place] dc'd 04/05 due to hematuria, continue SCDs Code: Full Dispo: back to intermediate - [place], ~ 2-3 days pending further improvement Continue ICU level of care, possible downgrade later today
[2023-04-06] MEDS: CEFTRIAXONE 1,000 MG in NA CHLORIDE 0.9% 50 ML IVPB SCH (09:16)
--- NOTE | 2023-04-06 14:30 | EKG ---
Test Date: 2023-04-01 Test Time: 17:36:06 [place]: MB MEASUREMENT RESULTS: Intervals: Rate: 97 MA: 132 QRSD: 84 QT: 342 QTc: 434 North: P: 64 MA: 132 QRS: 54 T: 73 INTERPRETIVE STATEMENTS: Normal sinus rhythm Possible Lateral infarct, age undetermined Cannot rule out Inferior infarct, age undetermined Abnormal ECG Compared to ECG 05/21/2022 09:35:14 Myocardial infarct finding now present Electronically Signed On 04-06-23 14:16:45 [employer] by Adeel Mcginnis
[2023-04-06] MEDS: HOME MED 1 EA UNK (Aripiprazole [Abilify] 2 MG Tablet) PO SCH (19:54)
[2023-04-07 04:55] LABS: Hematocrit 32.2 % (39.6-49.0); Lymphocytes % 32.9 % (15.3-44.8); MPV 8.4 fL (7.6-11.3); Platelets 211 thou/uL (152-406)
[2023-04-07 05:11] LABS: Magnesium 2.3 mg/dL (1.6-2.4); Potassium 3.3 mEq/L (3.5-5.1)
[2023-04-07] MEDS: CEFTRIAXONE 1,000 MG in NA CHLORIDE 0.9% 50 ML IVPB SCH (07:36)
--- NOTE | 2023-04-07 07:42 | P.PN ---
Date of Service: 04/07/23 Subjective: no new / worsening problems remains off levo; elder removed yesterday, voiding without issue per staff downgraded to floor yesterday afebrile ROS: 10 point ROS as noted above, otherwise negative Physical Exam: GEN: Alert, NAD, responds to questions HEENT: Normal conjunctiva, sclera anicteric CV: Regular rate and rhythm, no edema Pulm: Nonlabored respirations on room air, diminished at bases b/l, mild b/l crackles ABD: Soft, mild suprapubic tenderness on palpation, nondistended Neuro: responds to questions, moves extremities vitals reviewed Problem List: Septic shock secondary to left Pyelonephritis E. Coli Bacteremia secondary to UTI Mild Hematuria, resolved Acute hypoxic respiratory failure Scrotal wound/ulcer, superficial Hypokalemia Chronic cognitive disability / Downs syndrome Septic shock secondary to left Pyelonephritis E. Coli Bacteremia secondary to UTI Mild Hematuria, resolved CT abdomen (04/01): Findings suggestive of left pyelonephritis and pyonephrosis, with mild left hydroureteronephrosis. No evidence of obstructing calculi renal u/s (04/05): 2cm benign right renal cyst otherwise unremarkable. urine cx (04/01): E. coli blood cx (04/01): E. coli Continue Rocephin (04/04-) switched from Zosyn (04/02-04/04) given cx results x2 weeks total antibiotic course per ID; can switch to oral in next day or 2 afebrile; +leukocytosis resolved ID consulted elder placed 04/02 for accurate I/Os; dc'd (04/06) check PVR today mild hematuria noted 04/04 pm per nurses; resolved (04/06) off levophed drip since 04/04 ~noon given hydrocortisone for possible adrenal insufficiency component 04/04 PRN pain medication Continue IV fluids, decreased to 50cc/hr (04/06) Acute hypoxic respiratory failure noted to be hypoxic on admission. Initially placed on BiPAP CXR (04/01): mild central venous congestion or early CHF repeat CXR (04/01): findings suggestive of pulmonary edema repeat CXR (04/02): mild improvement in mod left and mild right pulmonary opacities Off BiPAP 04/03; Breathing okay on room air 04/04 Pulm consulted Scrotal wound/ulcer, superficial clean with soap/water; barrier cream to buttocks/scrotum Pressure offloading Hypokalemia Monitor and replete as needed. Chronic cognitive disability / Downs syndrome Continue supportive care. skilled nursing longterm resident VTE: abby dc'd 04/05 due to hematuria, continue SCDs Code: Full Dispo: back to longterm - [place], ~1-2 days pending further improvement
[2023-04-07] MEDS ORDERED: POTASSIUM 25 MEQ EFFERV TAB PO ONE ×2 (09:00→15:22)
[2023-04-07] MEDS: HOME MED 1 EA UNK (Aripiprazole [Abilify] 2 MG Tablet) PO SCH (21:32)
[2023-04-08 03:30] LABS: Absolute Lymphocytes (CBC) 2.6 K/uL (0.7-4.9); Hematocrit 32.5 % (39.6-49.0); MCV 104.3 fL (80-100); MPV 8.4 fL (7.6-11.3); Platelets 227 thou/uL (152-406); RBC Red Blood Cell Count 3.12 M/uL (4.33-5.43)
[2023-04-08 03:39] LABS: Magnesium 2.5 mg/dL (1.6-2.4); Potassium 3.6 mEq/L (3.5-5.1)
[2023-04-08] MEDS: CEFTRIAXONE 1,000 MG in NA CHLORIDE 0.9% 50 ML IVPB SCH (07:57)
--- NOTE | 2023-04-08 08:33 | P.DS ---
Admission Date: 04/01/23 Discharge Date: 04/08/23 Disposition: TRANSFER TO SNF Reason for Admission: Septic shock Consultations: ID - Dr. Dumont Pulmonology - Dr. Oliver Brief History of Present Illness: 53 yo M, PMH: cognitive disability, downs syndrome ajor depressive disorder, insomnia, GERD Patient who started having fever which has been going on for the last 2 days and has been progressively worsening and was brought to ER. Patient is a poor historian hence most of the history is obtained from the chart review and also talking to the ER physician and family member at the bedside. Started having fever which measured even up to 103 associated with chills. He also has abdominal pain and cough. Denies any chest pain or shortness of breath. Associated with nausea but no vomiting. Patient was assessed in the ER and was found to have UTI and was started on IV antibiotics. Patient also noted to be hypotensive and was started on Levophed. Patient is being admitted for for further management in ICU . Hospital Course: Problem List: Septic shock secondary to left Pyelonephritis E. Coli Bacteremia secondary to UTI Mild Hematuria, resolved Acute hypoxic respiratory failure small superficial scrotal abrasion Hypokalemia Chronic cognitive disability / Downs syndrome Patient presented with fever, suprapubic pain. Patient was found to have Left pyelonephritis noted on CT abdomen complicated by E. coli Bacteremia. Patient noted to be hypoxic, tachycardic, febrile on admission. Met criteria for Septic shock. due to low blood pressure and required vasopressors. Pulm and ID were consulted. Patient admitted to ICU, required BIPAP for <24hrs, and required ~4 days of levophed. He received a dose of hydrocortisone for possible adrenal insufficiency. Cortisol levels returned WNL and this was discontinued. His vitals improved and remained stable. He initially received IV zosyn. Cultures grew e.coli in urine and blood (04/01). De-escalated to IV rocephin on 04/04. ID recommended 14 day total treatment and can switch to oral ciprofloxacin on discharge. Patient was feeling better, remained afebrile, leukocytosis resolved, breathing more comfortably on room air and was deemed stable for discharge back to [facility]. He was tolerating diet without any issues. On presentation to ED he was noted to have a small abrasion on his scrotum with appearance of a superficial abrasion/ulceration. This improved with gentle topical cleaning. Medication: Ciprofloxacin x8 days continue other home medications as previously prescribed Follow up: Pulmonology ~2 weeks Physical Exam: GEN: Alert, NAD, responds to questions HEENT: Normal conjunctiva, sclera anicteric CV: Regular rate and rhythm, no edema Pulm: Nonlabored respirations on room air, slightly diminished at bases b/l ABD: Soft, mild suprapubic tenderness on palpation, nondistended Neuro: responds to questions, moves extremities Vital Signs/Physical Exam: Temp Pulse Resp BP Pulse Ox 97.8 F 76 15 99/55 L 98 04/08/23 04:00 04/08/23 04:00 04/08/23 04:00 04/08/23 04:00 04/08/23 04:00 Laboratory Data at Discharge: WBC 6.50 thou/uL (4.3-10.9) 04/08/23 02:56 Hgb 10.9 g/dL (13.6-17.9) L 04/08/23 02:56 Hct 32.5 % (39.6-49.0) L 04/08/23 02:56 Plt Count 227 thou/uL (152-406) 04/08/23 02:56 PT 14.0 SECONDS (9.5-12.5) H 04/01/23 17:22 INR 1.27 04/01/23 17:22 APTT 38.5 SECONDS (24.3-36.9) H 04/01/23 17:22 Sodium 140 mEq/L (136-145) 04/08/23 02:56 Potassium 3.6 mEq/L (3.5-5.1) 04/08/23 02:56 BUN 14 mg/dL (7-18) 04/08/23 02:56 Creatinine 0.55 mg/dL (0.70-1.30) L 04/08/23 02:56 Glucose 104 mg/dL (74-106) 04/08/23 02:56 Magnesium 2.5 mg/dL (1.6-2.4) H 04/08/23 02:56 Total Bilirubin 0.7 mg/dL (0.2-1.0) 04/02/23 04:11 AST 53 U/L (15-37) H 04/02/23 04:11 ALT 56 U/L (16-61) 04/02/23 04:11 Alkaline Phosphatase 173 U/L (45-117) H 04/02/23 04:11 Home Medications: ARIPiprazole [Aripiprazole] 2 mg PO BEDTIME 04/02/23 Acetaminophen 650 mg PO Q8HR PRN 04/02/23 Baclofen 5 mg PO 1X 04/02/23 Famotidine 20 mg PO BEDTIME 04/02/23 Fluocinolone Acetonide Otic 0.01 % OTIC BEDTIME PRN 04/02/23 Guaifenesin [Cough Syrup] 10 ml PO Q6HR PRN 04/02/23 Melatonin/Pyridoxine [Melatonin 5 mg Tablet] 10 mg PO BEDTIME 04/02/23 Multivitamin [Multiple Vitamins] 1 tab PO 1X 04/02/23 PARoxetine HCL [Paroxetine HCl] 10 mg PO BEDTIME 04/02/23 Tolnaftate [Tolcylen] 1 % TOP BID 04/02/23 Ciprofloxacin HCl 500 mg PO BID 8 Days #16 tab 04/08/23 New Medications: Ciprofloxacin HCl 500 mg PO BID 8 Days #16 tab Physician Discharge Instructions: Patient presented with fever, suprapubic pain. Patient was found to have Left pyelonephritis noted on CT abdomen complicated by E. coli Bacteremia. Patient noted to be hypoxic, tachycardic, febrile on admission. Met criteria for Septic shock. due to low blood pressure and required vasopressors. Pulm and ID were consulted. Patient admitted to ICU, required BIPAP for <24hrs, and required ~4 days of levophed. He received a dose of hydrocortisone for possible adrenal insufficiency. Cortisol levels returned WNL and this was discontinued. His vitals improved and remained stable. He initially received IV zosyn. Cultures grew e.coli in urine and blood (04/01). De-escalated to IV rocephin on 04/04. ID recommended 14 day total treatment and can switch to oral ciprofloxacin on discharge. Patient was feeling better, remained afebrile, leukocytosis resolved, breathing more comfortably on room air and was deemed stable for discharge back to [facility]. He was tolerating diet without any issues. On presentation to ED he was noted to have a small abrasion on his scrotum with appearance of a superficial abrasion/ulceration. This improved with gentle topical cleaning. Medication: Ciprofloxacin x8 days continue other home medications as previously prescribed Follow up: Pulmonology ~2 weeks Time spent managing pt's care (in minutes): 45
--- NOTE | 2023-04-08 08:58 | P.PN ---
Date of Service: 04/08/23 Chief Complaint: FEVER Subjective: Patient denies any new or worsening complaints. In no apparent distress. Pending discharge home today. Physical Examination Temp Pulse Resp BP Pulse Ox 98.3 F 72 16 140/62 97 04/08/23 08:00 04/08/23 08:00 04/08/23 08:00 04/08/23 08:00 04/08/23 08:00 General: Awake, In no apparent distress HEENT: Sclerae nonicteric. Dry mucous membranes. Neck: Supple Respiratory: Diminished. Breathing comfortably on room air. Cardiovascular: No edema, Regular rate/rhythm Gastrointestinal: Normal bowel sounds, Non-distended. Mild tenderness on palpation. Integumentary: Skin breakdown posterior scrotum superficial wound with surrounding erythema Laboratory Data - Reviewed Microbiology Data - Reviewed Imagings Data: - Reviewed Medications List: Reviewed Assessment and Plan Problem List Septic shock secondary to pyelonephritis Scrotal superficial wound Down Syndrome Acute Hypoxic Respiratory Failure Septic Shock secondary to Pyelonephritis E. coli Bacteremia secondary to Urinary Tract Infection - CT abdomen pelvis 04/01: "Findings suggestive of left pyelonephritis and pyonephrosis, with mild left hydroureteronephrosis. No evidence of obstructing calculi or other complications." - Blood cultures 04/01: Escherichia coli in 2 of 4 bottles - Urine culture 04/01: Escherichia coli ; >100,00 CFU/mL - Previously on Zosyn (04/02-04/04). Switched to Ceftriaxone 04/04. - Leukocytosis resolved. Afebrile Acute Hypoxic Respiratory Failure - Previously on BiPAP. Weaned off supplemental oxygen. - Pulmonology following - Negative Influenza and Negative Covid Recommendations - Bacteremia, Pyelonephritis: Continue antibiotic therapy for 14 days (04/02- 04/16) - Switched to Ciprofloxacin 500mg PO BID to complete remainder of antibiotic course. - Monitor WBC and fever trends - Scrotal wound: clean with mild soap and water, pat dry, then apply zinc-based barrier cream to buttocks/scrotum. BID and PRN if soiled. - Pressure offloading measures - Continue supportive care - Follow up with PCP in 1-2 weeks. Case discussed with Kelly Rodriguez
[2023-04-08] MEDS ORDERED: POTASSIUM 25 MEQ EFFERV TAB PO ONE (09:00)
[2023-04-08 09:21] VITALS: O2SAT 96
[2023-04-08 10:24] LABS: SARS-CoV-2 Antigen Rapid Res Negative (Negative)
[2023-04-08 12:24] VITALS: BP 114/57; TEMP 97.7
== END 2023-04-08 14:14 | DRG 871 ==
LOC: ER 16:57 → ERHOLD 20:16 → 3RD-ICU 21:18 → 4TH 04-06 17:25
PROVIDERS: ADMIT Family Medicine; ATTEND Hospitalist
PROC: 5A09457 Assistance with Respiratory Ventilation, 24-96 Consecutive Hours, Continuous Positive Airway Pressure (ICD-10-PCS; principal; 2023-04-01)
DX: A41.51 Sepsis due to Escherichia coli [E. coli] (principal); J96.01 Acute respiratory failure with hypoxia; R65.21 Severe sepsis with septic shock; N13.6 Pyonephrosis; J81.1 Chronic pulmonary edema; F79 Unspecified intellectual disabilities; E87.6 Hypokalemia; Q90.9 Down syndrome, unspecified; D64.9 Anemia, unspecified; K21.9 Gastro-esophageal reflux disease without esophagitis; S30.94XA Unspecified superficial injury of scrotum and testes, initial encounter; R31.9 Hematuria, unspecified; Z11.52 Encounter for screening for COVID-19; Z86.16 Personal history of COVID-19; Z79.899 Other long term (current) drug therapy
CPT/HCPCS: 36415; 51702; 71045; 74177; 76770; 80048; 80053; 81001; 82533; 82947; 83605; 83735; 84132; 85025; 85610; 85730; 87040; 87077; 87086; 87088; 87186; 87205; 87635; 87804; 87811; 93005; 94660; 99285; C9113; J0696; J1650; J1720; J1940; J2405; J2543; J7030; J7040; J7050; P9047; Q9967

== ENCOUNTER 2023-04-26 09:38 | Inpatient (IN) | payer OTHER ==
--- OUTSIDE RECORDS SUMMARY | 2023-04-26 09:41 | XMS REPORT | Continuity of Care Document ---
:1970 Author Organization [facility] t Address [address] [place] [address] Care Team Providers Name Role Phone Kd Armstrong MD Attending Clinician KD ARMSTRONG Attending Clinician Unavailable Doctor Unassigned, [place] Attending Clinician Unavailable Payers Payer Name Policy Type Policy Number Effective Date Expiration Date S ource Problems This patient has no known problems. Allergies, Adverse Reactions, Alerts Allergy Allergy Status Severity Reaction(s) Onset Inactive Treating Comm ents Source Name Type Date Date Clinician NO KNOWN Drug Active Univers ALLERGIE Class ity of [facility] Social History Social Habit Start Date Stop Date Quantity Comments Source Sex Assigned At [birth year] [facility] 00:00:00 00:00:00 [facility] Smoking Status Start Date Stop Date Source Unknown if ever smoked [facility] Medications Ordered Filled Start Stop Current Ordering Indication Dosage Frequency Signature Comments Components Source Medication Medication Date Date Medication? Clinician (SIG) Name Name barium 2020- No [id number] 680mL 680 mL, Un scott sulfate 08-15 Oral, ity of (LIQUID E-Z 14:15: 14:15 [place] 60 % 00 :00 dose, Mon Med ical (w/v) oral 08/15/20 at [facility] suspension 0915, 680 mL Routine Procedures Procedure Date / Time Performed Performing Clinician Denice VALDES SMALL BOWEL SERIES 2020-08-15 18:44:34 Kd Armstrong [facility] ASSIGNMENT OF BENEFITS 2020-08-15 13:35:57 Doctor Unassigned, No General acute hospital Branch Encounters Start End Encounter Admission Attending Care Care Encounter Source Date/Time Date/Time Type Type Clinicians Facility Department ID 2020-08-15 2020-08-15 [facility] [id number] [facility] 08:36:47 23:59:00 Encounter Kd Manzo Perez [id number] ity of [place] [id number] [facility] [id number] [facility] 807 Branch 2020-08-15 2020-08-15 [facility] [id number] Univers 00:00:00 00:00:00 KD ity [facility] 2020-08-15 2020-08-15 Orders Doctor BENTLEY [id number] Univers 00:00:00 00:00:00 Only Unassigned, AMAURI [id number] ity of [place] [facility] [id number] [facility] [id number] [facility] 009 Branch 2017-03-13 2017-03-13 Outpatient [facility] [id number] [place] 07:30:00 07:30:00 02 timur Stein 2016-03-06 2016-03-06 Outpatient [facility] [id number] 08:30:00 08:30:00 01 timur Stein 2015-02-10 2015-02-10 [id number] [facility] 07:30:00 07:30:00 00 timur Stein Results Test Description Test Time Test Results Result Source Comments Comments [place] SMALL BOWEL 2020-07-26 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 Nomucosal or functional abnormalities were observed. 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
[2023-04-26 10:12] LABS: Absolute Lymphocytes (CBC) 1.1 K/uL (0.7-4.9); Hematocrit 30.2 % (39.6-49.0); Lymphocytes % 6.2 % (15.3-44.8); MCV 103.7 fL (80-100); MPV 8.2 fL (7.6-11.3); Platelets 194 thou/uL (152-406); RBC Red Blood Cell Count 2.91 M/uL (4.33-5.43)
[2023-04-26 10:16] LABS: Protime INR 1.23
--- NOTE | 2023-04-26 10:41 | RAD REPORT ---
EXAM DESCRIPTION: RAD - Chest Single View - 04/26/2023 10:30 am CLINICAL HISTORY: Elevated WBC, Cough COMPARISON: Chest Single View dated 04/02/2023; Chest Single View dated 04/01/2023; Chest Single View dated 04/01/2023; Chest Single View dated 05/21/2022; Abdomen Pelvis W Contrast dated 04/01/2023 FINDINGS: Lines: None. Lungs: Coarsened interstitium bilaterally. The left lung base has improved aeration from prior. Pleural: No significant pleural effusions or pneumothorax. Cardiac: The heart size is within normal limits. Mediastinum: Within normal limits. Bones: No acute fractures. Other: None IMPRESSION: Nonspecific coarsening of the pulmonary interstitium could reflect mild edema. Aeration at the left lung base has improved from prior.
[2023-04-26 10:48] LABS: Urine Bacteria 20-50 /HPF (<20); Urine Bilirubin NEGATIVE (Negative); Urine Blood 2+ (Negative); Urine Clarity Extremely Turbid (Clear); Urine Color Yellow (Yellow); Urine Glucose NEGATIVE (Negative); Urine Mucus Slight /HPF (None Seen); Urine Protein 1+ (Negative); Urine RBC 21-50 /HPF (None Seen); Urine Urobilinogen Normal (Normal); Urine WBC Clump Many /HPF (None Seen)
[2023-04-26 10:57] LABS: Albumin 2.3 g/dL (3.4-5.0); Bilirubin Total 0.4 mg/dL (0.2-1.0); Potassium 3.4 mEq/L (3.5-5.1); Protein, Total 7.1 g/dL (6.4-8.2)
[2023-04-26] MEDS ORDERED: CEFTRIAXONE 1000 MG/VIAL ONE (11:26)
--- NOTE | 2023-04-26 11:36 | EDPHYS ---
Physician Documentation [facility] Name: Tor Garland Age: 53 yrs Sex: Male : 1970 Arrival Date: 04/26/2023 Time: 09:38 Bed 13 Private MD: ED Physician Dangelo Keane HPI: 04/26 09:41 This 53 yrs old Male presents to ER via Unassigned with complaints of abnormal WBC. ms3 09:41 53-year-old male with past medical history of Down syndrome, urinary tract infection, ms3 depression presents to the emergency department via [facility] for elevated white blood count. Blood pressure by EMS was noted to be 92/46, heart rate 75, oxygen saturation 9596% on room air, temperature 99.5. Nursing facility stated to EMS patient had elevated white blood count and easily becomes septic. Patient is without complaints. Historical: - Allergies: 10:25 No Known Allergies; ld1 - PMHx: 09:59 GERD; insomnia; Major Depressive Disorder; mastoiditis; mental retardation; ld1 - Immunization history:: Adult Immunizations up to date. - Social history:: Smoking status: Patient denies any tobacco usage or history of. ROS: 09:41 Constitutional: Negative for fever, and chills. ms3 09:41 Respiratory: Positive for cough, 09:41 Skin: Positive for rash, 09:41 All other systems are negative, Exam: 09:41 Constitutional: This is a well developed, well nourished patient who is awake, alert, ms3 and in no acute distress. Head/Face: Normocephalic, atraumatic. Chest/axilla: Normal chest wall appearance and motion. Nontender with no deformity. Cardiovascular: Regular rate and rhythm with a normal S1 and S2. No gallops, murmurs, or rubs. Normal PMI, no JVD. No pulse deficits. Respiratory: Lungs have equal breath sounds bilaterally, clear to auscultation and percussion. No rales, rhonchi or wheezes noted. No increased work of breathing, no retractions or nasal flaring. Abdomen/GI: Soft, non-tender, with normal bowel sounds. No distension or tympany. No guarding or rebound. No evidence of tenderness throughout. Skin: Warm, dry with normal turgor. Normal color with no rashes, no lesions, and no evidence of cellulitis. MS/ Extremity: Pulses equal, no cyanosis. Neurovascular intact. Full, normal range of motion. 09:51 ECG was reviewed by the Attending Physician. ms3 Vital Signs: 09:56 BP 90 / 46; Pulse 67; Resp 19; Temp 98.6(O); Pulse Ox 95% on R/A; Weight 66.68 kg; ld1 Height 5 ft. 0 in. ; Pain 0/10; 09:59 BP 90 / 46; Pulse 68; Resp 18; Temp 98.6(O); Pulse Ox 98% on R/A; ld1 10:39 BP 123 / 79; Pulse 65; Resp 15; Pulse Ox 100% ; tm6 11:19 Pulse 67; Pulse Ox 100% on R/A; ld1 11:31 BP 109 / 59; ld1 12:27 BP 112 / 62; Pulse 54; Pulse Ox 99% on R/A; ld1 13:01 BP 118 / 60; Pulse 66; Pulse Ox 99% on R/A; ld1 18:30 BP 84 / 56; Pulse 63; Resp 16 S; Pulse Ox 96% on R/A; ha1 18:55 BP 90 / 61; Pulse 66; Resp 18 S; Pulse Ox 96% on R/A; ha1 19:08 BP 87 / 55; Pulse 66; Resp 18 S; Pulse Ox 96% on R/A; ha1 19:35 BP 97 / 58; Pulse 66; Resp 18 S; Pulse Ox 96% on R/A; ha1 19:50 BP 109 / 60; Pulse 69; Resp 15 S; Pulse Ox 95% on R/A; ha1 20:10 BP 104 / 57; Pulse 72; Resp 18 S; Pulse Ox 96% on R/A; ha1 21:02 BP 103 / 57; Pulse 64; Resp 18 S; Pulse Ox 96% on R/A; ha1 22:00 BP 109 / 56; Pulse 59; Resp 18 S; Pulse Ox 95% on R/A; ha1 09:56 Body Mass Index 28.71 (66.68 kg, 152.4 cm) ld1 09:56 Pain Scale: Adult ld1 MDM: 09:40 Patient medically screened. ms3 09:41 Differential Diagnosis Urinary tract infection versus pneumonia versus elevated white ms3 blood count. 09:45 External Records Reviewed: Outpatient labs: Labs obtained yesterday revealed white ms3 blood count of 17.6. 13:57 Data reviewed: vital signs, nurses notes, lab test result(s), EKG, radiologic studies, ms3 and as a result, I will admit patient. Consideration of Admission/Observation Patient was admitted/placed on observation. Management of patient was discussed with the following: Hospitalist: Dr Banks. I considered the following discharge prescriptions or medication management in the emergency department Medications were administered in the Emergency Department. See MAR. Independent interpretation of the following test(s) in the Emergency Department EKG: See my EKG interpretation above. Historians other than the Patient: EMS: [facility]. Care significantly affected by the following chronic conditions: Down Syndrome. Counseling: I had a detailed discussion with the patient and/or guardian regarding. ED course: Case was discussed with Dr. Roger and he accepts patient as admission. All questions were answered. . 04/26 09:40 Order name: Blood Culture Adult (2) ms3 04/26 09:40 Order name: CBC with Diff; Complete Time: 10:32 ms3 04/26 09:40 Order name: CMP; Complete Time: 11:05 ms3 04/26 12:23 Interpretation: Abnormal: GLUC 136. cm12 04/26 09:40 Order name: Lactate w/ 2H reflex if indic.; Complete Time: 11:05 ms3 04/26 09:40 Order name: Protime (+inr); Complete Time: 10:32 ms3 04/26 09:40 Order name: Ptt, Activated; Complete Time: 10:32 ms3 04/26 09:41 Order name: Urinalysis w/ reflexes; Complete Time: 10:49 ms3 04/26 10:18 Order name: Glucose, Ancillary Testing; Complete Time: 10:32 EDMS 04/26 10:51 Order name: Urine Culture EDMS 04/26 14:05 Order name: Lactate Sepsis 2 HR Follow-up; Complete Time: 14:10 EDMS 04/26 22:08 Order name: Gram Stain--Aerobic Bottle EDMS 04/26 22:08 Order name: Gram Stain--Anaerobic Bottle EDMS 04/26 22:12 Order name: Gram Stain--Aerobic Bottle EDMS 04/26 22:12 Order name: Gram Stain--Anaerobic Bottle EDMS 04/26 09:41 Order name: Chest Single View XRAY; Complete Time: 10:49 ms3 04/26 11:58 Order name: CT Abd/Pelvis - Without Contrast; Complete Time: 12:46 ms3 04/26 13:00 Order name: Renal Ultrasound-Complete; Complete Time: 18:41 EDMS 04/26 09:40 Order name: EKG; Complete Time: 09:41 ms3 04/26 09:40 Order name: Accucheck; Complete Time: 10:05 ms3 04/26 09:40 Order name: Cardiac monitoring; Complete Time: 09:52 ms3 04/26 09:40 Order name: EKG - Nurse/Tech; Complete Time: 09:50 ms3 04/26 09:40 Order name: IV Saline Lock - Large Bore; Complete Time: 09:42 ms3 04/26 09:40 Order name: Labs collected and sent; Complete Time: 10:05 ms3 04/26 09:40 Order name: O2 Per Protocol; Complete Time: 09:42 ms3 04/26 09:40 Order name: O2 Sat Monitoring; Complete Time: 09:42 ms3 04/26 09:40 Order name: Vital Signs; Complete Time: 10:04 ms3 EC:51 Rate is 68 beats/min. Rhythm is regular. QRS [place] is Normal. CT interval is normal. QRS ms3 interval is normal. Clinical impression: Normal ECG. Interpreted by me. Reviewed by me. Administered Medications: 11:18 Drug: Rocephin IV 1 grams IV at calculated rate once; Given slow IV push per pharmacy ld1 instructions Route: IV; Rate: calculated rate; Site: left hand; 12:45 Follow up: Response: No adverse reaction ld1 Disposition Summary: 04/26/23 11:35 Hospitalization Ordered Notes: Hospitalization Status: Inpatient Admission ms3 Provider: Bess Banks ms3 Location: Telemetry/MedSurg (Inpatient) ms3 Condition: Stable ms3 Problem: new ms3 Symptoms: are unchanged ms3 Bed/Room Type: Standard ms3 Room Assignment: 204(04/26/23 17:28) eb Diagnosis - Severe sepsis without septic shock ms3 - UTI/ Urinary tract infection, site not specified ms3 Forms: - Medication Reconciliation Form ms3 - SBAR form ms3 - Leadership Thank You Letter ms3 Critical care time excluding procedures: 13:59 Critical care time: Bedside Care: 30 minutes, Consultation: 10 minutes. Total time: 40 ms3 minutes Signatures: Dispatcher [employer] Shania Brady Marcus, DO ms3 Evonne Keane, RN RN ld1 Arline Rangel, IGNITION SPECIALIST IGNITION SPECIALIST cm12 Corrections: (The following items were deleted from the chart) 17:28 11:35 ms3 cristhian
--- NOTE | 2023-04-26 11:36 | ER ---
Nurse's Notes [facility] Name: Tro Garland Age: 53 yrs Sex: Male : 1970 Arrival Date: 04/26/2023 Time: 09:38 Bed 13 Private MD: Diagnosis: Severe sepsis without septic shock;UTI/ Urinary tract infection, site not specified Presentation: 04/26 09:56 Chief complaint: EMS states: toned out for elevated WBC at . Coronavirus screen: ld1 Vaccine status: Client denies travel out of the [place] in the last 14 days. Ebola Screen: Patient negative for fever greater than or equal to 101.5 degrees Fahrenheit, and additional compatible Ebola Virus Disease symptoms Patient denies exposure to infectious person. Initial Sepsis Screen: Does the patient meet any 2 criteria? No. Patient's initial sepsis screen is negative. Does the patient have a suspected source of infection? No. Patient's initial sepsis screen is negative. Risk Assessment: Do you want to hurt yourself or someone else? Patient reports no desire to harm self or others. Onset of symptoms is unknown. 09:56 Method Of Arrival: EMS: [facility] ld1 09:56 Acuity: JIMMY 3 ld1 Triage Assessment: 09:59 General: Appears in no apparent distress. Behavior is calm, cooperative. Pain: Denies ld1 pain. EENT: No signs and/or symptoms were reported regarding the EENT system. Neuro: Level of Consciousness is awake, alert, obeys commands, Oriented to person, intellectual disability, at baseline. Cardiovascular: Capillary refill < 3 seconds Patient's skin is warm and dry. Respiratory: Airway is patent Respiratory effort is even, unlabored, Respiratory pattern is regular, symmetrical. GI: Abdomen is round non-distended. : No signs and/or symptoms were reported regarding the genitourinary system. Derm: Skin has lesions on scrotum (moisture related). Musculoskeletal: No signs and/or symptoms reported regarding the musculoskeletal system. Historical: - Allergies: 10:25 No Known Allergies; ld1 - PMHx: 09:59 GERD; insomnia; Major Depressive Disorder; mastoiditis; mental retardation; ld1 - Immunization history:: Adult Immunizations up to date. - Social history:: Smoking status: Patient denies any tobacco usage or history of. Screenin:02 [facility] ED Fall Risk Assessment (Adult) History of falling in the last 3 months, ld1 including since admission No falls in past 3 months (0 pts). Abuse screen: Denies threats or abuse. Denies injuries from another. Nutritional screening: No deficits noted. Tuberculosis screening: No symptoms or risk factors identified. Assessment: 10:02 Reassessment: see triage assessment. ld1 10:39 Reassessment: Patient appears in no apparent distress at this time. No changes from tm6 previously documented assessment. Patient and/or family updated on plan of care and expected duration. Pain level reassessed. Patient is alert, oriented x 3, equal unlabored respirations, skin warm/dry/pink. 11:20 Reassessment: Patient appears in no apparent distress at this time. No changes from ld1 previously documented assessment. Patient and/or family updated on plan of care and expected duration. Pain level reassessed. Patient is alert, oriented x 3, equal unlabored respirations, skin warm/dry/pink. 12:27 Reassessment: Patient appears in no apparent distress at this time. No changes from ld1 previously documented assessment. Patient and/or family updated on plan of care and expected duration. Pain level reassessed. Patient is alert, oriented x 3, equal unlabored respirations, skin warm/dry/pink. 13:00 Reassessment: Yaa Garland - Sister in law - [phone]. ld1 19:09 Reassessment: pt. not being transfer to his room due to low BP. Dr. Banks states"give 25 ha1 of albumin and monitor BP for a while before sending him up". 21:11 Reassessment: report given to VEE Giang. ha1 21:20 Reassessment: notified Maggie of new vital signs she states"patient can go upstairs to ha1 his room". Vital Signs: 09:56 BP 90 / 46; Pulse 67; Resp 19; Temp 98.6(O); Pulse Ox 95% on R/A; Weight 66.68 kg; ld1 Height 5 ft. 0 in. ; Pain 0/10; 09:59 BP 90 / 46; Pulse 68; Resp 18; Temp 98.6(O); Pulse Ox 98% on R/A; ld1 10:39 BP 123 / 79; Pulse 65; Resp 15; Pulse Ox 100% ; tm6 11:19 Pulse 67; Pulse Ox 100% on R/A; ld1 11:31 BP 109 / 59; ld1 12:27 BP 112 / 62; Pulse 54; Pulse Ox 99% on R/A; ld1 13:01 BP 118 / 60; Pulse 66; Pulse Ox 99% on R/A; ld1 18:30 BP 84 / 56; Pulse 63; Resp 16 S; Pulse Ox 96% on R/A; ha1 18:55 BP 90 / 61; Pulse 66; Resp 18 S; Pulse Ox 96% on R/A; ha1 19:08 BP 87 / 55; Pulse 66; Resp 18 S; Pulse Ox 96% on R/A; ha1 19:35 BP 97 / 58; Pulse 66; Resp 18 S; Pulse Ox 96% on R/A; ha1 19:50 BP 109 / 60; Pulse 69; Resp 15 S; Pulse Ox 95% on R/A; ha1 20:10 BP 104 / 57; Pulse 72; Resp 18 S; Pulse Ox 96% on R/A; ha1 21:02 BP 103 / 57; Pulse 64; Resp 18 S; Pulse Ox 96% on R/A; ha1 22:00 BP 109 / 56; Pulse 59; Resp 18 S; Pulse Ox 95% on R/A; ha1 09:56 Body Mass Index 28.71 (66.68 kg, 152.4 cm) ld1 09:56 Pain Scale: Adult ld1 ED Course: 09:40 Patient arrived in ED. ld1 09:40 Dangelo Keane DO is Attending Physician. ms3 09:56 Evonne Keane, VEE is Primary Nurse. ld1 09:59 Triage completed. ld1 09:59 Arm band placed on right wrist. ld1 10:02 EKG completed in triage. Results shown to MD. ld1 10:02 Patient has correct armband on for positive identification. Bed in low position. Call ld1 light in reach. Side rails up X2. Provided Education on: need for VS monitoring. Client placed on continuous cardiac and pulse oximetry monitoring. NIBP monitoring applied. termite exterminator on. Noise minimized. Warm blanket given. 10:02 No provider procedures requiring assistance completed. Maintain EMS IV. Dressing ld1 intact. Good blood return noted. Site clean \\T\\ dry. Gauge \\T\\ site: 20g L hand. 10:05 Blood Culture Adult (2) Sent. ld1 10:05 Lactate w/ 2H reflex if indic. Sent. ld1 10:06 CBC with Diff Sent. ld1 10:06 CMP Sent. ld1 10:06 Protime (+inr) Sent. ld1 10:06 Ptt, Activated Sent. ld1 10:06 Inserted saline lock: 20 gauge in right hand, using aseptic technique. Blood collected. bc6 10:24 Urinalysis w/ reflexes Sent. ld1 10:32 Chest Single View XRAY In Process Unspecified. EDMS 11:34 Bess Banks MD is Hospitalizing Provider. ms3 12:19 CT Abd/Pelvis - Without Contrast In Process Unspecified. EDMS 22:25 Patient admitted, IV remains in place. ha1 Administered Medications: 11:18 Drug: Rocephin IV 1 grams IV at calculated rate once; Given slow IV push per pharmacy ld1 instructions Route: IV; Rate: calculated rate; Site: left hand; 12:45 Follow up: Response: No adverse reaction ld1 Medication: 10:02 VIS not applicable for this client. ld1 Outcome: 11:35 Decision to Hospitalize by Provider. ms3 21:11 Condition: stable ha1 22:24 Admitted to Med/surg accompanied by [facility], via stretcher, room 204, with chart, Report ha1 called to SELENA Giang 22:24 Condition: stable 22:24 Discharge instructions given to patient, Instructed on the need for admit, Demonstrated understanding of instructions, 22:25 Patient left the ED. ha1 Signatures: Dispatcher [employer] EDWA Dangelo Keane DO DO ms3 Evonne Keane RN RN ld1 Nandini Burleson, RN RN ha1 Lolita Madrid bc6 Rea Walker, RN RN tm6
--- NOTE | 2023-04-26 12:37 | P.HP ---
Certification for Inpatient Patient admitted to: Inpatient With expected LOS: <2 Midnights Practitioner: I am a practitioner with admitting privileges, knowledge of patient current condition, hospital course, and medical plan of care. Services: Services provided to patient in accordance with Admission requirements found in Title 42 Section 412.3 of the Code of Federal Regulations Patient History Date of Service: 04/26/23 Reason for admission: acute cytisis History of Present Illness: 53 yrs old Male with past medical history of down syndrome, mental retardation, UTI, left pyelonephritis, bacteremia, pneumonia depression, GERD, insomnia, presents to the emergency room with elevated WBCs, hypotension From [facility], EMS noted blood pressure of 92/46, heart rate of 75, O2 sats at 96 on room air. Temperature 99.5, BP improved with IVF, 114/70. reports nonproductive cough, suprapubic tenderness, no reported fever, chills, vomiting, diarrhea, abdominal pain, chest pain flank pain. Plan to admit for severe sepsis secondary without shock to acute cystitis, laboratory evaluation elevated lactic 2.6 mild hypokalemia 3.4, leukocytosis 17.40, early left shift 84.2, microcytic anemia 10.1, 30.1, hypoalbuminemia 2.3, UA, greater than 500 leukoesterase, +2 hematuria. CXR IMPRESSION: Nonspecific coarsening of the pulmonary interstitium could reflect mild edema. Aeration at the left lung base has improved from prior, CT Abd pelvis mid right hyrdoneprosis previously admitted for sepsis, pyelonephritis, acute cystitis, pneumonia, was noted to have positive blood cultures was placed in ICU temporarily on Levophed for hypotension. Blood, urine cultures grew E. coli in urine and blood on 04-01 he was treated with Rocephin and Zosyn discharged on p.o. Cipro. he was admitted from 04/01/2023, discharged on 04/08/2023 Allergies No Known Allergies Allergy (Unverified 05/21/22 13:51) Home Medications: ARIPiprazole [Aripiprazole] 2 mg PO BEDTIME 04/02/23 Acetaminophen 650 mg PO Q8HR PRN 04/02/23 Baclofen 5 mg PO 1X 04/02/23 Famotidine 20 mg PO BEDTIME 04/02/23 Fluocinolone Acetonide Otic 0.01 % OTIC BEDTIME PRN 04/02/23 Guaifenesin [Cough Syrup] 10 ml PO Q6HR PRN 04/02/23 Melatonin/Pyridoxine [Melatonin 5 mg Tablet] 10 mg PO BEDTIME 04/02/23 Multivitamin [Multiple Vitamins] 1 tab PO 1X 04/02/23 PARoxetine HCL [Paroxetine HCl] 10 mg PO BEDTIME 04/02/23 Tolnaftate [Tolcylen] 1 % TOP BID 04/02/23 Ciprofloxacin HCl 500 mg PO BID 8 Days #16 tab 04/08/23 - Past Medical/Surgical History Diabetic: No -: mental retardation - Social History Alcohol use: No CD- Drugs: No Caffeine use: No Review of Systems per hpi Physical Examination - Physical Exam General: Alert, In no apparent distress, Oriented x2, Obese, Other (Down Syndrome, ) HEENT: Atraumatic, Normocephalic Neck: Supple, 2+ carotid pulse no bruit, JVD not distended Respiratory: Normal air movement, Diminished (LLL) Cardiovascular: No edema, Normal pulses, Regular rate/rhythm Gastrointestinal: Normal bowel sounds, Tenderness (suprapubic tendernness) Musculoskeletal: No clubbing, No swelling Integumentary: No breakdown Neurological: Normal speech, Normal tone, Other (generalized weakness) - Studies Laboratory Data (last 24 hrs) 04/26/23 04/26/23 04/26/23 10:23 10:06 10:00 WBC RBC Hgb Hct MCV MCH MCHC RDW Plt Count MPV Neutrophils % Lymphocytes % Monocytes % Eosinophils % Basophils % Absolute Neutrophils Absolute Lymphocytes Absolute Monocytes Absolute Eosinophils Absolute Basophils PT 13.5 H INR 1.23 APTT 39.5 H Sodium Potassium Chloride Carbon Dioxide Anion Gap BUN Creatinine Est GFR (CKD-EPI) Glucose POC Glucose 126 H Lactic Acid Calcium Total Bilirubin AST ALT Alkaline Phosphatase Serum Total Protein Albumin Globulin Albumin/Globulin Ratio Urine Color Yellow Urine Clarity Extremely turbid H Urine pH 6.0 Ur Specific [place] 1.010 Glucose (UA)(Auto) Negative Urine Ketones Negative Urine Blood 2+ H Urine Nitrite 2+ H Urine Bilirubin Negative Urine Urobilinogen Normal Ur Leukocyte Esterase 500 H Urine RBC 21-50 H Urine WBC >50 H Urine WBC Clumps Many H Ur Squamous Epith Cells None seen Urine Bacteria 20-50 H Urine Mucus Slight Urine Culture Reflexed Reflexed Urine Total Protein 1+ H 04/26/23 04/26/23 04/26/23 10:00 10:00 10:00 WBC 17.40 H RBC 2.91 L Hgb 10.1 L Hct 30.2 L MCV 103.7 H MCH 34.6 MCHC 33.4 RDW 16.7 H Plt Count 194 MPV 8.2 Neutrophils % 84.2 H Lymphocytes % 6.2 L Monocytes % 9.2 Eosinophils % 0.0 Basophils % 0.4 Absolute Neutrophils 14.7 H Absolute Lymphocytes 1.1 Absolute Monocytes 1.6 H Absolute Eosinophils 0.0 Absolute Basophils 0.1 PT INR APTT Sodium 141 Potassium 3.4 L Chloride 110 H Carbon Dioxide 26 Anion Gap 8.4 BUN 13 Creatinine 0.85 Est GFR (CKD-EPI) 103 Glucose 136 H POC Glucose Lactic Acid 2.6 H* Calcium 8.2 L Total Bilirubin 0.4 AST 24 ALT 28 Alkaline Phosphatase 156 H Serum Total Protein 7.1 Albumin 2.3 L Globulin 4.8 H Albumin/Globulin Ratio 0.5 L Urine Color Urine Clarity Urine pH Ur Specific [place] Glucose (UA)(Auto) Urine Ketones Urine Blood Urine Nitrite Urine Bilirubin Urine Urobilinogen Ur Leukocyte Esterase Urine RBC Urine WBC Urine WBC Clumps Ur Squamous Epith Cells Urine Bacteria Urine Mucus Urine Culture Reflexed Urine Total Protein Assessment and Plan - Plan assement plan severe sepsis secondary without shock to acute cystitis, EMS noted blood pressure of 92/46, heart rate of 75, O2 sats at 96 on room air. Temperature 99.5, he was admitted from 04/01/2023, discharged on 04/08/2023 Blood, urine cultures grew E. coli in urine and blood on 04-01 he was treated with Rocephin and Zosyn discharged on p.o. Cipro. reports nonproductive cough, skin rash, no reported fever, chills, vomiting, diarrhea, abdominal pain, chest pain flank pain. laboratory evaluation elevated lactic 2.6 mild hypokalemia 3.4, leukocytosis 17.40, early left shift 84.2, IVF, IV zosyn, prn tylenol, zofrn UA, greater than 500 leukoesterase, +2 hematuria CXR IMPRESSION: Nonspecific coarsening of the pulmonary interstitium could reflect mild edema. Aeration at the left lung base has improved from prior, CT Abd pelvis mid right hyrdoneprosis renal US ordered HX bacteremia follow cultures, Blood cultures, urine cx drawn microcytic anemia HH 10.1, 30.1, trend hh hypoalbuminemia albumin 2.3,. down syndrome, mental retardation fall precautions PT eval assist w ambulation Full Code DVT lovenox Diet cardiac Discharge Plan: [facility]dc - Advance Directives Does patient have a Living Will: No Does patient have a Durable POA for Healthcare: Yes - Code Status/Comfort Care Code Status: Full Code Critical Care: No Time Spent Managing Pts Care (In Minutes): 50
--- NOTE | 2023-04-26 12:43 | RAD REPORT ---
EXAM DESCRIPTION: CTAbdomen Pelvis Wo Contrast - 04/26/2023 12:18 pm CLINICAL HISTORY: UTI- Hospitalist request COMPARISON: Abdomen Pelvis W Contrast dated 04/01/2023; Stone Protocol dated 03/10/2023 TECHNIQUE: CT of the abdomen and pelvis was performed without contrast. All CT scans are performed using dose optimization technique as appropriate and may include automated exposure control or mA/KV adjustment according to patient size. FINDINGS: Lower chest: Circumferential thickened distal esophagus. Liver: No acute abnormality or suspicious lesions. Biliary: No biliary ductal dilatation. Stomach: No significant focal abnormality. Duodenum: No significant focal abnormality. Pancreas: No significant abnormality. Spleen: No significant abnormality. Adrenal: No suspicious lesions. Kidney/ureter: Mild right-sided hydroureteronephrosis. No obstructing stone. Right upper pole renal l esion which is most likely a cyst. Mild left perinephric stranding. Retroperitoneum: No retroperitoneal adenopathy. Vascular: No aneurysm. Bowel: No significant focal abnormality. Peritoneum: No ascites or free air. Bladder: Bladder wall thickening. Reproductive: No adnexal masses. Bones: No acute fracture. Multilevel degenerative changes are present in the spine. Other: n/a IMPRESSION: Interval development of mild right-sided hydroureteronephrosis. This could be secondary to an ascending urinary tract infection. Bladder wall thickening and left-sided perinephric stranding remains suspicious for a cystitis and sequela of recent pyelonephritis on the left.
[2023-04-26] MEDS: NA CHLORIDE 0.9% 1,000 ML IV SCH (14:14)
[2023-04-26] MEDS ORDERED: ONDANSETRON 4 MG/2 ML VIAL IV PRN (14:14)
[2023-04-26 14:16] VITALS: BMI 28.7
[2023-04-26] MEDS ORDERED: ACETAMINOPHEN 500 MG TAB ONE (15:57)
[2023-04-26] MEDS ORDERED: NA CHLORIDE 0.9% 100 ML ONE (15:57)
[2023-04-26] MEDS ORDERED: PIPERACIL/TAZO 3.375 GM VIAL IV ONE (15:57)
[2023-04-26] MEDS ORDERED: NA CHLORIDE 0.9% 1,000 ML ONE ×2 (15:57→17:51)
[2023-04-26] MEDS: ACETAMINOPHEN 500 MG TAB PO PRN (15:58)
[2023-04-26] MEDS: PIPER TAZO 3.375 GM in NA CHLORIDE 0.9% 100 ML IV SCH (15:58)
--- NOTE | 2023-04-26 16:52 | RAD REPORT ---
EXAM DESCRIPTION: US - Renal Ultrasound-Complete - 04/26/2023 2:17 pm CLINICAL HISTORY: JOSEPH; hydronephrosis COMPARISON: Abdomen Pelvis Wo Contrast dated 04/26/2023 TECHNIQUE: Sonographic grayscale and color flow images of the kidneys and bladder were obtained. FINDINGS: Poor penetration somewhat limits evaluation. Both kidneys are normal in size, shape, and e chotexture. The right kidney measures 8.7 cm in length. Suggestion of mild right hydronephrosis although poor pen etration limits evaluation. No focal mass, or echogenic calculi. The left kidney measures 10.2 cm in length. No hydronephrosis, focal mass, or echogenic calculi. Bilateral renal cysts largest at the upper to midpole measuring 2.6 cm. The cyst on the left is near the lower pole measuring 5 millimeter. The urinary bladder is without gross abnormality seen. IMPRESSION: Possible mild right hydronephrosis. Incidental note made of simple appearing bilateral cortical cysts as above.
[2023-04-26] MEDS: NA CHLORIDE 0.9% 500 ML IV ONE ×2 (17:01→17:30)
[2023-04-26] MEDS ORDERED: NA CHLORIDE 0.9% 500 ML IV ONE (17:51)
[2023-04-26] MEDS ORDERED: HYDROCORTISONE SUC 100 MG INJ IV ONE (18:00)
[2023-04-26] MEDS ORDERED: HYDROCORTISONE SUC 100 MG INJ ONE (18:07)
[2023-04-26] MEDS ORDERED: ALBUMIN HUMAN 25% 100 ML IV ONE (19:09)
[2023-04-26] MEDS: HYDROCORTISONE SUC 100 MG INJ IV SCH (21:00)
[2023-04-26] MEDS: MIDODRINE HCL 5 MG TABLET PO SCH (23:21)
[2023-04-27] MEDS: PIPER TAZO 3.375 GM in NA CHLORIDE 0.9% 100 ML IV SCH ×3 (00:04→17:00)
[2023-04-27] MEDS: NA CHLORIDE 0.9% 1,000 ML IV SCH (03:34)
[2023-04-27 03:57] LABS: Absolute Lymphocytes (CBC) 1.1 K/uL (0.7-4.9); Hematocrit 28.3 % (39.6-49.0); Lymphocytes % 12.1 % (15.3-44.8); MCV 103.8 fL (80-100); MPV 8.6 fL (7.6-11.3); Platelets 151 thou/uL (152-406); RBC Red Blood Cell Count 2.73 M/uL (4.33-5.43)
[2023-04-27 04:12] LABS: Magnesium 2.4 mg/dL (1.6-2.4); Potassium 3.4 mEq/L (3.5-5.1)
[2023-04-27 05:32] LABS: Blood Morphology Comment NOT SEEN (NOT SEEN); Platelet Estimate ADEQ; White Blood Cell Scan OK (OK)
--- NOTE | 2023-04-27 07:19 | P.PN ---
Subjective Date of Service: 04/27/23 Chief Complaint: acute cytisis Subjective: No C/O voiced HPI limited due to Down Syndrome Review of Systems per hpi Physical Examination - Vital Signs Temperature: 97.9 F Blood Pressure: 103/68 Pulse: 55 Respirations: 16 Pulse Ox (%): 94 - Physical Exam General: Alert, In no apparent distress, Obese HEENT: Atraumatic, Normocephalic, Other (missing teeth, cross eye vision) Neck: Supple, 2+ carotid pulse no bruit, JVD not distended Respiratory: Clear to auscultation bilaterally, Normal air movement Cardiovascular: No edema, Normal pulses Capillary refill: <2 Seconds Gastrointestinal: Normal bowel sounds, Tenderness (suprabubic ) Musculoskeletal: No clubbing, No swelling Integumentary: No breakdown - Studies Laboratory Data (last 24 hrs) 04/26/23 04/26/23 04/26/23 10:00 10:00 10:00 WBC 17.40 H Hgb 10.1 L Hct 30.2 L Plt Count 194 PT 13.5 H INR 1.23 APTT 39.5 H Sodium 141 Potassium 3.4 L BUN 13 Creatinine 0.85 Glucose 136 H Total Bilirubin 0.4 AST 24 ALT 28 Alkaline Phosphatase 156 H Assessment And Plan - Plan assement plan severe sepsis secondary without shock to acute cystitis, EMS noted blood pressure of 92/46, heart rate of 75, O2 sats at 96 on room air. Temperature 99.5, he was admitted from 04/01/2023, discharged on 04/08/2023 Blood, urine cultures grew E. coli in urine and blood on 04-01 he was treated with Rocephin and laboratory evaluation elevated lactic 2.6 mild hypokalemia 3.4, leukocytosis 17.40, early left shift 84.2, 04/27 lactic 2.6, repeat 2.3 on IVF, Zosyn 04/27 Leukocytosis improved from 17.40, 9.5, IVF, IV zosyn, prn tylenol, zofrn UA, greater than 500 leukoesterase, +2 hematuria hypotension, hydrocortisone added CXR IMPRESSION: Nonspecific coarsening of the pulmonary interstitium could reflect mild edema. Aeration at the left lung base has improved from prior, CT Abd pelvis mid right hyrdoneprosis renal US renal US IMPRESSION: Possible mild right hydronephrosis.Incidental note made of simple appearing bilateral cortical cysts as above HX bacteremia +blood cultures, +urine cultures follow cultures, Blood cultures, urine cx drawn-pharm consulted to review cultures/abx microcytic anemia HH 10.1, 30.1, trend hh Microcytic anemia 10.1 30.2, trend 9.6 28.3 hypoalbuminemia albumin 2.3,. add supplment to diet hypomagesium mag 8.0 replace prn down syndrome, mental retardation fall precautions PT eval assist w ambulation Full Code DVT lovenox Diet cardiac Discharge Plan: [facility] - Code Status/Comfort Care Code Status: Full Code Physician Review: Patient Assessed, Agree with Above Assessment and Plan Critical Care: No Time Spent Managing PTS Care (In Minutes): 35
[2023-04-27] MEDS ORDERED: MAGNESIUM SULFATE 1 gm IVPB 1 GM/100 ML BAG IV ONE (07:34)
[2023-04-27] MEDS ORDERED: POTASSIUM CL SA 10 MEQ TAB PO ONE ×3 (07:38→22:14)
[2023-04-27] MEDS: ENSURE HIGH PROTEIN 237 ML CAN PO SCH ×3 (08:00→17:00)
[2023-04-27] MEDS: HYDROCORTISONE SUC 100 MG INJ IV SCH ×2 (09:02→20:37)
[2023-04-27] MEDS: MIDODRINE HCL 5 MG TABLET PO SCH ×3 (09:02→20:39)
[2023-04-27] MEDS: ENOXAPARIN 40 MG/0.4 ML SQ SCH (09:02)
[2023-04-28] MEDS: PIPER TAZO 3.375 GM in NA CHLORIDE 0.9% 100 ML IV SCH ×3 (00:31→17:26)
--- NOTE | 2023-04-28 07:12 | P.PN ---
Subjective Date of Service: 04/28/23 Chief Complaint: acute cytisis Subjective: No new changes HPI limited due to Down Syndrome - Physical Exam General: Alert, In no apparent distress, Obese HEENT: Atraumatic, Normocephalic, Other (missing teeth, cross eye vision) Neck: Supple, 2+ carotid pulse no bruit, JVD not distended Respiratory: Clear to auscultation bilaterally, Normal air movement Cardiovascular: No edema, Normal pulses Capillary refill: <2 Seconds Gastrointestinal: Normal bowel sounds, Tenderness (suprabubic ) Musculoskeletal: No clubbing, No swelling Integumentary: No breakdown Review of Systems per hpi Physical Examination - Vital Signs Temperature: 97.0 F Blood Pressure: 131/74 Pulse: 51 Respirations: 17 Pulse Ox (%): 96 - Studies Microbiology Data (last 24 hrs): 04/26/23 10:23 Clean Catch Urine Onward Count - Final >100,000 CFU/ML. 04/26/23 10:23 Clean Catch Urine - Final Escherichia Coli Esbl Gram Neg Jose 04/26/23 10:23 Blood - Blood Aerobic Blood Culture - Final Escherichia Coli Esbl 04/26/23 10:23 Blood - Blood Blood Culture Gram Stain - Final 04/26/23 10:23 Blood - Blood Anaerobic Blood Culture - Final Escherichia Coli Esbl 04/26/23 10:23 Blood - Blood Gram Stain - Final 04/26/23 10:00 Blood - Blood Aerobic Blood Culture - Final Escherichia Coli Esbl 04/26/23 10:00 Blood - Blood Blood Culture Gram Stain - Final 04/26/23 10:00 Blood - Blood Anaerobic Blood Culture - Final Escherichia Coli Esbl 04/26/23 10:00 Blood - Blood Gram Stain - Final Assessment And Plan - Plan assement plan severe sepsis secondary with hypotension shock right hydronephrosis from pyelonephritis HX bacteremia +blood cultures, +urine cultures follow cultures, Blood cultures, urine cx drawn-pharm consulted to review cultures/abx UA positive for E. coli, ESBL gram-negative Blood culture, positive for E. coli ESBL meropenem and Zosyn hypotension, hydrocortisone added On arrival to the ER EMS noted blood pressure of 92/46, heart rate of 75, O2 sats at 96 on room air. Temperature 99.5, he was admitted from 04/01/2023, discharged on 04/08/2023 Blood, urine cultures grew E. coli in urine and blood on 04-01 he was treated with Rocephin and laboratory evaluation elevated lactic 2.6 mild hypokalemia 3.4, leukocytosis 17.40, early left shift 84.2, 12 lactic 2.6, repeat 2.3 on IVF, Zosyn initial antibiotics 04/27 Leukocytosis improved from 17.40, 9.5, IVF, IV zosyn, prn tylenol, zofrn UA, greater than 500 leukoesterase, +2 hematuria CXR IMPRESSION: Nonspecific coarsening of the pulmonary interstitium could reflect mild edema. Aeration at the left lung base has improved from prior, CT Abd pelvis mid right hyrdoneprosis renal US renal US IMPRESSION: Possible mild right hydronephrosis.Incidental note made of simple appearing bilateral cortical cysts as above microcytic anemia HH 10.1, 30.1, trend hh Microcytic anemia 10.1 30.2, trend 9.6 28.3 hypoalbuminemia albumin 2.3,. add supplment to diet hypomagesium mag 8.0 replace prn down syndrome, mental retardation fall precautions PT eval assist w ambulation Full Code DVT lovenox Diet cardiac Discharge Plan: Care Home - Code Status/Comfort Care Code Status: Full Code Physician Review: Patient Assessed, Agree with Above Assessment and Plan Critical Care: No Time Spent Managing PTS Care (In Minutes): 35
[2023-04-28] MEDS: Meropenem 1,000 MG in NA CHLORIDE 0.9% 100 ML IV SCH ×2 (09:00→09:45)
[2023-04-28] MEDS: MIDODRINE HCL 5 MG TABLET PO SCH ×3 (09:00→20:08)
[2023-04-28 09:01] LABS: Absolute Lymphocytes (CBC) 2.1 K/uL (0.7-4.9); Hematocrit 28.9 % (39.6-49.0); Lymphocytes % 21.1 % (15.3-44.8); MCV 103.7 fL (80-100); MPV 8.4 fL (7.6-11.3); Platelets 182 thou/uL (152-406); RBC Red Blood Cell Count 2.78 M/uL (4.33-5.43)
[2023-04-28 09:13] LABS: Magnesium 2.5 mg/dL (1.6-2.4); Potassium 3.7 mEq/L (3.5-5.1)
[2023-04-28] MEDS: ENSURE HIGH PROTEIN 237 ML CAN PO SCH ×3 (09:46→17:26)
[2023-04-28] MEDS: HYDROCORTISONE SUC 100 MG INJ IV SCH (09:46)
[2023-04-28] MEDS: ENOXAPARIN 40 MG/0.4 ML SQ SCH (09:46)
[2023-04-28] MEDS ORDERED: POTASSIUM CL SA 10 MEQ TAB PO ONE (12:22)
[2023-04-28] MEDS ORDERED: predniSONE 20 MG TAB PO ONE (14:38)
[2023-04-28] MEDS: ACETAMINOPHEN 500 MG TAB PO PRN (20:08)
[2023-04-29] MEDS: PIPER TAZO 3.375 GM in NA CHLORIDE 0.9% 100 ML IV SCH ×2 (01:05→07:46)
[2023-04-29 03:21] LABS: Absolute Lymphocytes (CBC) 1.6 K/uL (0.7-4.9); Lymphocytes % 14.5 % (15.3-44.8); MCV 102.5 fL (80-100); MPV 8.6 fL (7.6-11.3); Platelets 211 thou/uL (152-406); RBC Red Blood Cell Count 2.83 M/uL (4.33-5.43)
[2023-04-29 03:33] LABS: Magnesium 2.6 mg/dL (1.6-2.4); Potassium 3.8 mEq/L (3.5-5.1)
[2023-04-29] MEDS: ENSURE HIGH PROTEIN 237 ML CAN PO SCH ×2 (07:46→12:00)
[2023-04-29] MEDS: ENOXAPARIN 40 MG/0.4 ML SQ SCH (07:46)
[2023-04-29] MEDS: MIDODRINE HCL 5 MG TABLET PO SCH (08:12)
[2023-04-29] MEDS ORDERED: predniSONE 20 MG TAB PO SCH ×2 (09:00)
[2023-04-29] MEDS ORDERED: POTASSIUM CL SA 10 MEQ TAB PO ONE (09:00)
--- NOTE | 2023-04-29 09:19 | P.DS ---
Admission Date: 04/26/23 Discharge Date: 04/29/23 Reason for Admission: acute cytisis Brief History of Present Illness: Date of Admission: 04/26/23 Reason for admission: acute cytisis History of Present Illness: 53 yrs old Male with past medical history of down syndrome, mental retardation, UTI, left pyelonephritis, bacteremia, pneumonia depression, GERD, insomnia, presents to the emergency room with elevated WBCs, hypotension From [facility], EMS noted blood pressure of 92/46, heart rate of 75, O2 sats at 96 on room air. Temperature 99.5, BP improved with IVF, 114/70. reports nonproductive cough, suprapubic tenderness, no reported fever, chills, vomiting, diarrhea, abdominal pain, chest pain flank pain. Plan to admit for severe sepsis secondary without shock to acute cystitis, laboratory evaluation elevated lactic 2.6 mild hypokalemia 3.4, leukocytosis 17.40, early left shift 84.2, microcytic anemia 10.1, 30.1, hypoalbuminemia 2.3, UA, greater than 500 leukoesterase, +2 hematuria. CXR IMPRESSION: Nonspecific coarsening of the pulmonary interstitium could reflect mild edema. Aeration at the left lung base has improved from prior, CT Abd pelvis mid right hyrdoneprosis previously admitted for sepsis, pyelonephritis, acute cystitis, pneumonia, was noted to have positive blood cultures was placed in ICU temporarily on Levophed for hypotension. Blood, urine cultures grew E. coli in urine and blood on 04-01 he was treated with Rocephin and Zosyn discharged on p.o. Cipro. he was admitted from 04/01/2023, discharged on 04/08/2023 Hospital Course: Mr.Mcmicken Lentz 53 yrs old Male with past medical history of down syndrome, mental retardation, UTI, left pyelonephritis, bacteremia, pneumonia depression, GERD, insomnia, who was admitted to the [facility] on 04/26/2023 for acute cystitis, pyelonephritis. Patient was treated with the IV antibiotics, IV fluids. On 04/29/2023, patient was seen on morning rounds and deemed medically stable for discharge. Patient was discharged with instructions to schedule follow-up appointments with PCP in 1 week. <Geronimo Cr - Last Filed: 04/29/23 09:27> Admission Date: 04/26/23 Discharge Date: 04/29/23 Hospital Course: Pt seen and examined. I agree with the note by the MEDICAL RECORDS TECH. He is stable for discharge. pt was advised to come back to the ER if symptoms resume. <SbStephanie saucedorinavicente Rogerio - Last Filed: 04/29/23 18:09> Disposition: TRANSFER TO [facility] Discharge Condition: GOOD Vital Signs/Physical Exam: Temp Pulse Resp BP Pulse Ox 97.0 F 56 18 157/87 H 96 04/29/23 04:00 04/29/23 04:00 04/29/23 04:00 04/29/23 04:00 04/29/23 04:00 Laboratory Data at Discharge: WBC 11.10 thou/uL (4.3-10.9) H 04/29/23 03:02 Hgb 9.8 g/dL (13.6-17.9) L 04/29/23 03:02 Hct 29.0 % (39.6-49.0) L 04/29/23 03:02 Plt Count 211 thou/uL (152-406) 04/29/23 03:02 PT 13.5 SECONDS (9.5-12.5) H 04/26/23 10:00 INR 1.23 04/26/23 10:00 APTT 39.5 SECONDS (24.3-36.9) H 04/26/23 10:00 Sodium 142 mEq/L (136-145) D 04/29/23 03:02 Potassium 3.8 mEq/L (3.5-5.1) 04/29/23 03:02 BUN 18 mg/dL (7-18) 04/29/23 03:02 Creatinine 0.57 mg/dL (0.70-1.30) L 04/29/23 03:02 Glucose 140 mg/dL (74-106) H 04/29/23 03:02 Magnesium 2.6 mg/dL (1.6-2.4) H 04/29/23 03:02 Total Bilirubin 0.4 mg/dL (0.2-1.0) 04/26/23 10:00 AST 24 U/L (15-37) 04/26/23 10:00 ALT 28 U/L (16-61) 04/26/23 10:00 Alkaline Phosphatase 156 U/L (45-117) H 04/26/23 10:00 <Geronimo Cr - Last Filed: 04/29/23 09:27> Vital Signs/Physical Exam: Temp Pulse Resp BP Pulse Ox 97.2 F 52 16 149/77 H 92 04/29/23 08:00 04/29/23 08:00 04/29/23 08:00 04/29/23 08:00 04/29/23 08:00 Laboratory Data at Discharge: WBC 11.10 thou/uL (4.3-10.9) H 04/29/23 03:02 Hgb 9.8 g/dL (13.6-17.9) L 04/29/23 03:02 Hct 29.0 % (39.6-49.0) L 04/29/23 03:02 Plt Count 211 thou/uL (152-406) 04/29/23 03:02 PT 13.5 SECONDS (9.5-12.5) H 04/26/23 10:00 INR 1.23 04/26/23 10:00 APTT 39.5 SECONDS (24.3-36.9) H 04/26/23 10:00 Sodium 142 mEq/L (136-145) D 04/29/23 03:02 Potassium 3.8 mEq/L (3.5-5.1) 04/29/23 03:02 BUN 18 mg/dL (7-18) 04/29/23 03:02 Creatinine 0.57 mg/dL (0.70-1.30) L 04/29/23 03:02 Glucose 140 mg/dL (74-106) H 04/29/23 03:02 Magnesium 2.6 mg/dL (1.6-2.4) H 04/29/23 03:02 Total Bilirubin 0.4 mg/dL (0.2-1.0) 04/26/23 10:00 AST 24 U/L (15-37) 04/26/23 10:00 ALT 28 U/L (16-61) 04/26/23 10:00 Alkaline Phosphatase 156 U/L (45-117) H 04/26/23 10:00 <Marleen Esquivel C - Last Filed: 04/29/23 18:09> Diet: Regular Activity: Fall precautions <Geronimo Cr - Last Filed: 04/29/23 09:27> Physician Review: Patient Assessed, Agree with Above Assessment and Plan (Pt seen and examined. I agree with the note by the MEDICAL RECORDS TECH.) <Marleen Esquivel - Last Filed: 04/29/23 18:09> Home Medications: Acetaminophen 650 mg PO Q8HR PRN 04/02/23 Baclofen 5 mg PO DAILY 04/02/23 Famotidine 20 mg PO BEDTIME 04/02/23 Fluocinolone Acetonide Otic 0.01 % OTIC BEDTIME PRN 04/02/23 Guaifenesin [Cough Syrup] 10 ml PO Q6HR PRN 04/02/23 Melatonin/Pyridoxine [Melatonin 5 mg Tablet] 10 mg PO BEDTIME 04/02/23 Multivitamin [Multiple Vitamins] 1 tab PO DAILY 04/02/23 PARoxetine HCL [Paroxetine HCl] 10 mg PO BEDTIME 04/02/23 ARIPiprazole [Aripiprazole] 2 mg PO BEDTIME 04/27/23 Amox/Clavulanate [Augmentin 875-125 Tab] 1 each PO BID 10 Days #20 tab 04/29/23 Ensure High Protein 300 ml PO TIDWM #20 can 04/29/23 Midodrine HCl [Proamatine*] 5 mg PO TID #10 tab 04/29/23 predniSONE [Prednisone*] 10 mg PO DAILY #3 tab 04/29/23 New Medications: Amox/Clavulanate [Augmentin 875-125 Tab] 1 each PO BID 10 Days #20 tab Ensure High Protein 300 ml PO TIDWM #20 can predniSONE [Prednisone*] 10 mg PO DAILY #3 tab Midodrine HCl [Proamatine*] 5 mg PO TID #10 tab Physician Discharge Instructions: -DC IV and DC home -Follow-up with PCP in 1 to 2 weeks -Please call Dr. Banks at [phone] if any questions regarding hospital stay -Please call nursing station at [phone] if any nursing or medication questions -Return to the emergency room if symptoms worsen Followup: NONE,NONE [Primary Care Provider] -
[2023-04-29 11:21] VITALS: BP 149/77; TEMP 97.2; O2SAT 92
--- NOTE | 2023-04-30 13:45 | EKG ---
Test Date: 2023-04-26 Test Time: 09:47:25 Humidifier Maintenance Worker: ABIGAIL MEASUREMENT RESULTS: Intervals: Rate: 68 RI: 140 QRSD: 90 QT: 424 QTc: 450 [place]: P: 59 RI: 140 QRS: 41 T: 37 INTERPRETIVE STATEMENTS: Normal sinus rhythm Normal ECG Compared to ECG 04/01/2023 17:36:06 Myocardial infarct finding no longer present Electronically Signed On 04-30-23 13:31:58 FITTER MACHINIST by Adeel Mcginnis
== END 2023-04-29 10:35 | DRG 872 ==
LOC: ER 09:38 → ERHOLD 13:58 → 2ND 17:41
PROVIDERS: ADMIT Hospitalist; ATTEND Hospitalist
PROC: 0T9B70Z Drainage of Bladder with Drainage Device, Via Natural or Artificial Opening (ICD-10-PCS; principal; 2023-04-26)
DX: A41.51 Sepsis due to Escherichia coli [E. coli] (principal); N13.6 Pyonephrosis; Z16.12 Extended spectrum beta lactamase (ESBL) resistance; Q90.9 Down syndrome, unspecified; R65.20 Severe sepsis without septic shock; E87.6 Hypokalemia; D50.9 Iron deficiency anemia, unspecified; F79 Unspecified intellectual disabilities; G47.00 Insomnia, unspecified; K21.9 Gastro-esophageal reflux disease without esophagitis; E88.09 Other disorders of plasma-protein metabolism, not elsewhere classified; Z79.52 Long term (current) use of systemic steroids; Z79.899 Other long term (current) drug therapy
CPT/HCPCS: 36415; 71045; 74176; 76770; 80048; 80053; 81001; 82947; 83605; 83735; 84132; 84145; 85025; 85610; 85730; 87040; 87077; 87086; 87088; 87186; 87205; 93005; 96374; 97161; 97530; 99285; J0696; J1650; J1720; J2185; J2543; J3475; J7030; J7512; P9047

== ENCOUNTER 2025-03-05 07:21 | Emergency (ER) | payer OTHER ==
--- OUTSIDE RECORDS SUMMARY | 2025-03-05 07:24 | XMS REPORT | Continuity of Care Document ---
Author Name Unknown Address [address] [facility] [address] [place] [address] Organization [facility] Address [address] [facility] [address] [place] [address] Care Team Providers Care Miniature Train Driver Name Role Phone Kd Armstrong MD Attending Clinician KD ARMSTRONG Attending Clinician Unavailabl e Doctor Unassigned, Petrey Attending Clinician U navailable Payers Payer Name Policy Type Policy Number Effective Date Expirati on Date Source [facility] 53 [id number] 2023 00:00:00 [facility] Problems Condition Name Condition Details Condition Category Status Onset Date Resolution Date Last Treatment Date Treating Clinician Comments Source [id number] History of pyelonephr itis Problem [facility] [id number] Voiding dysfunctio n Problem [facility] [id number] Incomplete bladder emptying Problem [facility] [id number] History of recurrent UTIs Problem [facility] [id number] Pain in joint of left elbow Problem [facility] [id number] History of sepsis Problem [facility] [id number] Recurrent UTI Problem [facility] [id number] History of ESBL E. 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 Problem [facility] Neurogenic incontinen ce Neurogenic incontinen ce Problem [facility] [id number] Lower obstructiv e uropathy Problem [facility] Allergies, Adverse Reactions, Alerts Allergy Name Allergy Type Status Severity Reaction(s) Onset Date Inactive Date Treating Clinician Comments Source NO KNOWN ALLERGIE S Drug Class Active [facility] Social History Social Habit Start Date Stop Date Quantity Comments Source History of Tobacco Use [facility] Sex Assigned At [facility] Smoking Status Start Date Stop Date Source Unknown if ever smoked [facility] Never Smoker [facility] Medications Ordered Medication Name Filled Medication Name Start Date Stop Date Current Medication? Ordering Clinician Indication Dosage Frequency Signature (SIG) Comments Components Source Cephalexin 500 MG Cephalexin 500 MG 2023-05 00:00: 00 No 1{capsu le} TID Cephalexin 500 MG Trimethopri m 100 MG Trimethopri m 100 MG 2023-05 00:00: 00 No 1{table t} BID Trimethopr im 100 MG Melatonin 5 MG Melatonin 5 MG 2023-05 0 00:00: 00 No 1{table t_in_th e_eveni ng} QD Melatonin 5 MG Tylenol 325 MG Tylenol 325 MG 2023-05 0-30 00:00: 00 No 1{table t_as_ne eded} QID Tylenol 325 MG Ascorbic Acid 500 MG Ascorbic Acid 500 MG 2023-05 0- 00:00: 00 No 1{table t} QD Ascorbic Acid 500 MG Zinc 220 (50 Zn) MG Zinc 220 (50 Zn) MG 2023-05 0- 00:00: 00 No 1{capsu le} QD Zinc 220 (50 Zn) MG MiraLax 17 GM/SCOOP MiraLax 17 GM/SCOOP 2024-1 0-30 00:00: 00 No QD MiraLax 17 GM/SCOOP Famotidine 20 MG Famotidine 20 MG 2023-05 00:00: 00 No 1{table t_at_be dtime_a s_neede d} QD Famotidine 20 MG Nystatin 822861 UNIT/ML Nystatin 792641 UNIT/ML 2023-05 00:00: 00 No 4{ml} QID Nystatin 524775 UNIT/ML PARoxetine HCl 10 MG PARoxetine HCl 10 MG 2023-05 00:00: 00 No 1{table t_in_th e_morni ng} QD PARoxetine HCl 10 MG barium sulfate (LIQUID E-Z PAQUE) 60 % (w/v) oral suspension 680 mL 08-15 14:15: 00 08-15 14:15 :00 No [id number] 680mL 680 mL, Oral, ONCE, 1 dose, 08/15/20 at 0915, Routine [facility] Baclofen 10 MG Baclofen 10 MG No Baclofen 10 MG Vital Signs Vital Name Observation Time Observation Value Comments S ource height 2024-11-11 10:00:00 60 [in_i] Commo n [facility] weight 2024-11-11 10:00:00 141.5 [lb_av] Co mmon [facility] temperature 2024-11-11 10:00:00 98.2 [degF] Com mon [facility] bmi 2024-11-11 10:00:00 27.63 kg/m2 Comm on [facility] oximetry 2024-11-11 10:00:00 97 % Commo n [facility] blood pressure systolic 2024-11-11 10:00:00 88 mm[Hg] Common [facility] blood pressure diastolic 2024-11-11 10:00:00 55 mm[Hg] Common [facility] height 2024-03-25 09:45:00 60 [in_i] Commo n [facility] weight 2024-03-25 09:45:00 153 [lb_av] Comm on [facility] bmi 2024-03-25 09:45:00 29.88 kg/m2 Comm on [facility] blood pressure systolic 2024-03-25 09:45:00 124 mm[Hg] [facility] blood pressure diastolic 2024-03-25 09:45:00 76 mm[Hg] [facility] height 2023-10-16 09:15:00 60 [in_i] Commo n [facility] weight 2023-10-16 09:15:00 153.4 [lb_av] Co mmon [facility] temperature 2023-10-16 09:15:00 98.3 [degF] Com mon [facility] bmi 2023-10-16 09:15:00 29.96 kg/m2 Comm on [facility] oximetry 2023-10-16 09:15:00 94 % Commo n [facility] respiratory rate 2023-10-16 09:15:00 16 /min [facility] blood pressure systolic 2023-10-16 09:15:00 112 mm[Hg] [facility] blood pressure diastolic 2023-10-16 09:15:00 61 mm[Hg] Common [facility] height 2023-07-01 13:15:00 60 [in_i] Commo n [facility] weight 2023-07-01 13:15:00 190 [lb_av] Comm on [facility] temperature 2023-07-01 13:15:00 97.6 [degF] Com mon [facility] bmi 2023-07-01 13:15:00 37.1 kg/m2 Commo n [facility] oximetry 2023-07-01 13:15:00 99 % Commo n [facility] respiratory rate 2023-07-01 13:15:00 18 /min [facility] blood pressure systolic 2023-07-01 13:15:00 123 mm[Hg] [facility] blood pressure diastolic 2023-07-01 13:15:00 65 mm[Hg] [facility] Procedures Procedure Date / Time Performed Performing Clinicia n Source PVR 2024-11-11 00:00:00 [facility] PVR 2023-07-02 00:00:00 [facility] [place] SMALL BOWEL SERIES 2020-08-15 18:44:34 Nathaniel air Jovany [facility] ASSIGNMENT OF BENEFITS 2020-08-15 13:35:57 Docto r Unassigned, Petrey [facility] Encounters Start Date/Time End Date/Time Encounter Type Admission Type Attending Clinicians Care Facility Care Department Encounter ID Source 2024-01-20 14:13:00 Outpatient [facility]MLC ST[facility] [id number] [facility] 2023-11-12 14:16:00 Outpatient STLMLC ST[facility] [id number] [facility] 2023-09-02 12:21:01 Outpatient STLMLC STL[facility] [id number] [facility] 2023-08-26 15:43:00 Outpatient [facility]LMLC STL[facility] [id number] [facility] 2023-08-14 10:37:00 Outpatient [facility]LMLC STL[facility] [id number] [facility] 2023-07-01 12:54:01 Outpatient STLMLC STL[facility] [id number] [facility] 2024-11-11 00:00:00 2024-11-11 00:00:00 OFFICE VISIT ESTAB PT LEVEL 2 [facility]LMLC STLMLC [id number] [facility] 2024-07-13 00:00:00 2024-07-13 00:00:00 OFFICE VISIT ESTAB PT LEVEL 4 [facility]C STL[facility]C [id number] [facility] 2024-06-24 00:00:00 2024-06-24 00:00:00 (PROC) Procedure STLMLC STL[facility]C [id number] [facility] 2024-04-10 00:00:00 2024-04-10 00:00:00 (TEL) STLMLC STLMLC [id number] [facility] 2024-04-09 00:00:00 2024-04-09 00:00:00 (TEL) STLMLC STLMLC [id number] [facility] 2024-03-30 00:00:00 2024-03-30 00:00:00 (TEL) STLMLC STLMLC [id number] [facility] 2024-03-25 00:00:00 2024-03-25 00:00:00 OFFICE VISIT ESTAB PT LEVEL 4 STLMLC STLMLC [id number] [facility] 2024-01-13 00:00:00 2024-01-13 00:00:00 (TEL) STLMLC STLMLC [id number] [facility] 2023-10-24 00:00:00 2023-10-24 00:00:00 (TEL) STLMLC STLMLC [id number] [facility] 2023-10-16 00:00:00 2023-10-16 00:00:00 OFFICE VISIT ESTAB PT LEVEL 3 STLMLC STLMLC [id number] [facility] 2023-09-18 00:00:00 2023-09-18 00:00:00 (PROC) Procedure STLMLC STLMLC [id number] [facility] 2023-08-01 00:00:00 2023-08-01 00:00:00 (TEL) STLMLC STLMLC [id number] [facility] 2023-07-02 00:00:00 2023-07-02 00:00:00 ([place]) Nurse Visit STLMLC STLMLC [id number] [facility] 2023-07-01 00:00:00 2023-07-01 00:00:00 OFFICE VISIT ESTAB PT LEVEL 4 [facility]C STLC [id number] [facility] 2020-08-15 08:36:47 2020-08-15 23:59:00 Hospital Encounter Kd Armstrong [facility] [id number] [facility] 2020-08-15 00:00:00 2020-08-15 00:00:00 Outpatient R KD ARMSTRONG [facility] [id number] [facility] 2020-08-15 00:00:00 2020-08-15 00:00:00 Orders Only Doctor Unassigned, Petrey [facility] [id number] [facility] 2017-03-13 07:30:00 2017-03-13 07:30:00 Outpatient IE IE [id number] Yahaira Stein 2016-03-06 08:30:00 2016-03-06 08:30:00 Outpatient IE IE [id number] Yahaira Stein 2015-02-10 07:30:00 2015-02-10 07:30:00 Outpatient IE IE [id number] Yahaira Stein Results Test Description Test Time Test Comments Results Result Co mments Source [place] SMALL BOWEL [id number] 19:22:04Small bowel malrotation without obstruction. 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 Barium was administered for the patient to ingest. Fluoroscopy andserialfilms were obtained as the barium traversed the small bowel into the cecumand ascending colon. The C-loop did not reach the left side of thevertebral with duodenal jejunal junction at the levelof mid L1 withclustered of jejunal loop in the right upper quadrant consistent with smallbowel malrotation without obstruction. The contrast passed easily throughthe duodenum which appears normal. The contrast reached: About 4 hours. Nomucosal or functional abnormalities were observed. 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 Nomucosal or functional abnormalities were observed.IMPRESSIONSmall bowel malrotation without obstruction.[facility] BranchRenal Ultrasound-CompleteRenal Ultrasound-Complete
[2025-03-05] MEDS ORDERED: ACETAMINOPHEN 325 MG TABLET ONE (07:37)
--- NOTE | 2025-03-05 07:54 | ER ---
Nurse's Notes [facility] Name: Tor Garland Age: 55 yrs Sex: Male : 1970 Arrival Date: 03/05/2025 Time: 07:21 Bed 16 Private MD: Diagnosis: Fall on same level, unspecified;Unspecified injury of head, initial encounter;Mental disorder, not otherwise specified-MENTAL RETARDATION Presentation: 03/05 07:22 Chief complaint: EMS states: came from [place], unwitnessed fall from wheelchair, af3 right sided head pain, painful to touch. Coronavirus screen: At this time, the client does not indicate any symptoms associated with coronavirus-19. Ebola Screen: No symptoms or risks identified at this time. Initial Sepsis Screen: Does the patient meet any 2 criteria? No. Patient's initial sepsis screen is negative. Does the patient have a suspected source of infection? No. Patient's initial sepsis screen is negative. Risk Assessment: Do you want to hurt yourself or someone else? Patient reports no desire to harm self or others. Onset of symptoms was March 05, 2025. 07:22 Method Of Arrival: EMS: [facility] af3 07:22 Acuity: JIMMY 4 af3 Triage Assessment: 07:26 General: Appears in no apparent distress. comfortable, well groomed, well developed, af3 Behavior is calm, cooperative, appropriate for age. Pain: Complains of pain in right frontal area. Neuro: Level of Consciousness is awake, alert, obeys commands. Cardiovascular: Patient's skin is warm and dry. Respiratory: Airway is patent Respiratory effort is even, unlabored, Respiratory pattern is regular, symmetrical. Historical: - Allergies: 07:26 lactose (bulk); af3 - PMHx: 07:26 GERD; insomnia; Major Depressive Disorder; mastoiditis; mental retardation; af3 - Immunization history:: Adult Immunizations unknown. - Infectious Disease History:: Denies. - Social history:: Smoking status: unknown. Screenin:29 [facility] ED Fall Risk Assessment (Adult) History of falling in the last 3 months, af3 including since admission Yes- single mechanical fall (1 pt) Confusion or Disorientation No (0 pts) Intoxicated or Sedated No (0 pts) Impaired Gait Yes (1 pt) Mobility Assist Device Used Yes (1 pt) Altered Elimination No (0 pt) Score/Fall Risk Level 3 or more points = High Risk Oriented to surroundings, Maintained a safe environment, Educated pt \T\ family on fall prevention, incl call for assistance when getting out of bed. Abuse screen: Denies threats or abuse. Denies injuries from another. Nutritional screening: No deficits noted. Tuberculosis screening: No symptoms or risk factors identified. Assessment: 07:29 General: see triage assessment . af3 08:15 Reassessment: Patient appears in no apparent distress at this time. No changes from af3 previously documented assessment. Discharge pending results from scans . 08:19 Reassessment: Called for transport to [place], spoke with Cecy, unknown ETA . af3 09:01 Reassessment: Patient appears in no apparent distress at this time. Patient and/or ph family updated on plan of care and expected duration. Pain level reassessed. detention staff at bedside to transport pt back to [place]. Vital Signs: 07:22 BP 124 / 62; Pulse 61; Resp 18; Temp 96.9; Pulse Ox 100% on R/A; Weight 65.32 kg; af3 Height 5 ft. 2 in. ; 08:33 BP 110 / 73; Pulse 60; Resp 18; Pulse Ox 100% on R/A; af3 07:22 Body Mass Index 26.34 (65.32 kg, 157.48 cm) af3 [place] Coma Score: 07:51 Eye Response: spontaneous(4). Motor Response: obeys commands(6). Verbal Response: justyna oriented(5). Total: 15. ED Course: 07:22 Patient arrived in ED. ph 07:22 Imani Hernandez, RN is Primary Nurse. af3 07:26 Triage completed. af3 07:26 Arm band placed on. af3 07:29 Patient has correct armband on for positive identification. Bed in low position. Call af3 light in reach. Provided Education on: call light use . 07:29 Client placed on continuous cardiac and pulse oximetry monitoring. NIBP monitoring af3 applied. property assessment monitor on. Pulse ox on. NIBP on. 07:29 No provider procedures requiring assistance completed. af3 07:30 Frederic Lea MD is Attending Physician. justyna 07:55 Chest Abd Pelvis Wo Con In Process Unspecified. EDMS 07:55 Head C Spine Mpr Wo Con In Process Unspecified. EDMS 09:02 Patient did not have IV access during this emergency room visit. ph Administered Medications: 07:43 Drug: Acetaminophen PO 650 mg PO once Route: PO; af3 08:29 Follow up: Response: No adverse reaction af3 Medication: 07:29 VIS not applicable for this client. af3 Outcome: 07:54 Discharge ordered by . justyna 09:02 Discharged to snf. ph 09:02 Condition: good 09:02 Discharge instructions given to snf, Instructed on discharge instructions, follow up and referral plans. Demonstrated understanding of instructions, follow-up care, 09:02 Patient left the ED. ph Signatures: Dispatcher [employer] EDFrederic Grant MD MD cha Hall, Patricia, RN RN Imani Hernandez RN RN af3 Corrections: (The following items were deleted from the chart) 07:32 07:26 Allergies: No Known Allergies; af3 af3 07:32 07:31 Allergies: No Known Allergies; af3 af3
--- NOTE | 2025-03-05 07:55 | EDPHYS ---
Physician Documentation [facility] Name: Tor Garland Age: 55 yrs Sex: Male : 1970 Arrival Date: 03/05/2025 Time: 07:21 Bed 16 Private MD: ED Physician Frederic Lea HPI: 03/05 07:49 This 55 yrs old Male presents to ER via EMS with complaints of Fall Injury. [facility] 07:49 Details of fall: The patient fell from seated position, out of a chair. Onset: The justyna symptoms/episode began/occurred just prior to arrival. Associated injuries: The patient sustained injury to the head. Severity of symptoms: At their worst the symptoms were mild, moderate, in the emergency department the symptoms are unchanged. The patient has not experienced similar symptoms in the past. Historical: - Allergies: 07:26 lactose (bulk); af3 - PMHx: 07:26 GERD; insomnia; Major Depressive Disorder; mastoiditis; mental retardation; af3 - Immunization history:: Adult Immunizations unknown. - Infectious Disease History:: Denies. - Social history:: Smoking status: unknown. ROS: 07:50 Constitutional: Negative for fever, chills, and weight loss, Eyes: Negative for injury, justyna pain, redness, and discharge, ENT: Negative for injury, pain, and discharge, Neck: Negative for injury, pain, and swelling, Cardiovascular: Negative for chest pain, palpitations, and edema, Respiratory: Negative for shortness of breath, cough, wheezing, and pleuritic chest pain, Abdomen/GI: Negative for abdominal pain, nausea, vomiting, diarrhea, and constipation, Back: Negative for injury and pain, : Negative for injury, bleeding, discharge, and swelling, MS/Extremity: Negative for injury and deformity, Skin: Negative for injury, rash, and discoloration, Psych: Negative for depression, anxiety, suicide ideation, homicidal ideation, and hallucinations, Allergy/Immunology: Negative for hives, rash, and allergies, Endocrine: Negative for neck swelling, polydipsia, polyuria, polyphagia, and marked weight changes, Hematologic/Lymphatic: Negative for swollen nodes, abnormal bleeding, and unusual bruising, 07:50 Neuro: Positive for headache, Exam: 07:50 Constitutional: This is a well developed, well nourished patient who is awake, alert, justyna and in no acute distress. Head/Face: Normocephalic, atraumatic. Eyes: Pupils equal round and reactive to light, extra-ocular motions intact. Lids and lashes normal. Conjunctiva and sclera are non-icteric and not injected. Cornea within normal limits. Periorbital areas with no swelling, redness, or edema. ENT: Nares patent. No nasal discharge, no septal abnormalities noted. Tympanic membranes are normal and external auditory canals are clear. Oropharynx with no redness, swelling, or masses, exudates, or evidence of obstruction, uvula midline. Mucous membranes moist. Neck: Trachea midline, no thyromegaly or masses palpated, and no cervical lymphadenopathy. Supple, full range of motion without nuchal rigidity, or vertebral point tenderness. No Meningismus. Chest/axilla: Normal chest wall appearance and motion. Nontender with no deformity. No lesions are appreciated. Cardiovascular: Regular rate and rhythm with a normal S1 and S2. No gallops, murmurs, or rubs. Normal PMI, no JVD. No pulse deficits. Respiratory: Lungs have equal breath sounds bilaterally, clear to auscultation and percussion. No rales, rhonchi or wheezes noted. No increased work of breathing, no retractions or nasal flaring. Abdomen/GI: Soft, non-tender, with normal bowel sounds. No distension or tympany. No guarding or rebound. No evidence of tenderness throughout. Back: No spinal tenderness. No costovertebral tenderness. Full range of motion. Male : Normal genitalia with no discharge or lesions. Skin: Warm, dry with normal turgor. Normal color with no rashes, no lesions, and no evidence of cellulitis. MS/ Extremity: Pulses equal, no cyanosis. Neurovascular intact. Full, normal range of motion., bilateral aka Neuro: Awake and alert, GCS 15, oriented to person, place, time, and situation. Cranial nerves II-XII grossly intact. Motor strength 5/5 in all extremities. Sensory grossly intact. Cerebellar exam normal. Normal gait. Psych: Awake, alert, with orientation to person, place and time. Behavior, mood, and affect are within normal limits. Vital Signs: 07:22 BP 124 / 62; Pulse 61; Resp 18; Temp 96.9; Pulse Ox 100% on R/A; Weight 65.32 kg; af3 Height 5 ft. 2 in. ; 08:33 BP 110 / 73; Pulse 60; Resp 18; Pulse Ox 100% on R/A; af3 07:22 Body Mass Index 26.34 (65.32 kg, 157.48 cm) af3 [place] Coma Score: 07:51 Eye Response: spontaneous(4). Motor Response: obeys commands(6). Verbal Response: justyna oriented(5). Total: 15. MDM: 07:30 Medical Screening Exam initiated justyna 07:51 Differential diagnosis: Contusion of Hematoma on intra-abdominal injury, closed head justyna injury, cardiac contusion, extremity fracture, C spine fracture, T spine fracture, L spine fracture. Differential Diagnosis altered mental status, sepsis, flu. Differential diagnosis: abrasion, closed head injury, contusion, fracture, laceration, sprain, strain. Data reviewed: vital signs, nurses notes, lab test result(s), radiologic studies, CT scan. Consideration of Admission/Observation Escalation of care including admission/observation considered. I considered the following discharge prescriptions or medication management in the emergency department Medications were administered in the Emergency Department. See MAR. Test considered but Not performed: Labs: NO LABS. Counseling: I had a detailed discussion with the patient and/or guardian regarding the historical points, exam findings, and any diagnostic results supporting the discharge/admit diagnosis, lab results, radiology results, the need for outpatient follow up, for definitive care, an hearing aid consultant. 03/05 07:35 Order name: Chest Abd Pelvis [facility] EDWA 03/05 07:36 Order name: Head C Spine Mpr [facility] [place] 03/05 07:31 Order name: Ice pack; Complete Time: 07:43 justyna Administered Medications: 07:43 Drug: Acetaminophen PO 650 mg PO once Route: PO; af3 08:29 Follow up: Response: No adverse reaction af3 Disposition Summary: 03/05/25 07:54 Discharge Ordered Notes: Location: Home justyna Problem: new justyna Symptoms: have improved justyna Condition: Stable justyna Diagnosis - Fall on same level, unspecified justyna - Unspecified injury of head, initial encounter justyna - Mental disorder, not otherwise specified - MENTAL RETARDATION justyna Followup: justyna - With: Private Physician - When: 2 - 3 days - Reason: Recheck today's complaints, Continuance of care, Re-evaluation by your physician Discharge Instructions: - Discharge Summary Sheet justyna - Head Injury, Adult justyna - Fall Prevention in the Home, Adult justyna - Fall Prevention in the Home, Adult, [id number] justyna - Head Injury, Adult, [id number] justyna Forms: - Medication Reconciliation Form justyna - Antibiotic Education justyna - Prescription Opioid Use justyna - Patient Portal Instructions justyna - Leadership Thank You Letter [facility] Signatures: Dispatcher [employer] EDMS Frederic Lea MD MD cha Fry, Ashley RN RN af3 Corrections: (The following items were deleted from the chart) 07:32 07:26 Allergies: No Known Allergies; af3 af3 07:32 07:31 Allergies: No Known Allergies; af3 af3 07:34 07:31 Head C Spine Cap Wo Con+CT.RAD.BRZ ordered. EDMS EDMS
--- NOTE | 2025-03-05 08:17 | RAD REPORT ---
EXAMINATION: Head C Spine Mpr Wo Con CLINICAL INDICATION: Male, 55 years old. Headache;Pain TECHNIQUE: Axial CT images from the skull base to the vertex without intravenous contrast. Axial CT i mages through the cervical spine were obtained without intravenous contrast. Sagittal and coronal reformatted images were created from the data set. Coronal and sagittal reformatted images were creat ed from the data set. One or more of the following dose reduction techniques were used: Automated exposure control, adjustment of the mA and/or kV according to patient size, and/or iterative reconstr uction. Unless otherwise specified, incidental findings do not require dedicated imaging follow-up. [id number]. COMPARISON: No prior exams FINDINGS: Head: INTRACRANIAL: No acute intracranial hemorrhage. No acute large vascular territory infarct. No hydro cephalus. No mass effect or midline shift. No significant white matter disease. VASCULATURE: No visualized abnormalities in the arteries or dural venous sinuses. SCALP/SKULL: No calvarial fracture identified. No acute soft tissue abnormality. SINUSES: The visualized paranasal sinuses are mostly clear. No significant mastoid fluid. Cervical spine: ALIGNMENT: Trace retrolisthesis of C2 on C3. 2 mm of retrolisthesis of C3 on C4. 2 mm of anterolisthe sis of C5 on C6. BONE: Vertebral body heights are maintained. No aggressive osseous lesions. DEGENERATIVE: Multilevel cervical spondylosis with evidence of bilateral neural foraminal narrowing. No high grade central spinal stenosis. There is evidence of bilateral neural foraminal narrowing is advanced at levels. SOFT TISSUE: No significant abnormalities in the soft tissue of the neck. The visualized lung apices are clear. IMPRESSION: No acute intracranial abnormality. No acute fracture or traumatic malalignment of the cervical spine.
--- NOTE | 2025-03-05 08:32 | RAD REPORT ---
EXAM: Chest Abd Pelvis Wo Con CLINICAL INDICATION: Male, 55 years old headache, pain TECHNIQUE: CT chest, abdomen and pelvis was performed, without IV contrast, as per department protoco l. Axial, sagittal and coronal reconstructions were obtained. One or more of the following dose reduction techniques were used: Automated exposure control, adjustment of the mA and/or kV according to the patient size, and/or iterative reconstruction. Unless otherwise specified, incidental findings do not require dedicated imaging follow-up. [id number]. COMPARISON: 05/21/2022, 06/05/2024 FINDINGS: The lack of intravenous contrast limits the sensitivity of this exam for evaluation of solid visceral organs, vascular structures, and retroperitoneum. ---THORAX--- LOWER NECK AND CHEST WALL: Visualized thyroid gland and soft tissues are normal. MEDIASTINUM AND LYMPH NODES: No mediastinal mass or fluid collection. Normal size mediastinal, hilar, and axillary lymph nodes. Mild distal esophageal thickening. THORACIC AORTA: No thoracic aortic aneurysm. PULMONARY ARTERIES: Caliber is within normal limits. HEART: Normal heart size. No coronary calcifications. No significant pericardial effusion. LUNGS AND AIRWAYS: Airways are clear. No evidence of airspace or interstitial process. No suspicious and/or stable pulmonary nodules. PLEURA: No pleural effusion. No pneumothorax. ---ABDOMEN/PELVIS--- UPPER GI: No significant abnormality. LIVER: No significant focal abnormality. GALLBLADDER/BILE DUCTS: No biliary ductal dilatation.? PANCREAS: No mass, ductal dilation, or carlos-pancreatic fluid. SPLEEN: Unremarkable. ADRENALS: No adrenal masses. KIDNEYS AND URETERS: No hydronephrosis.Right upper pole renal cyst. No renal or ureteral calculi. ABDOMINAL AORTA AND OTHER VESSELS: Normal caliber aorta and IVC. PERITONEUM: No abnormal free fluid. No free air. LYMPH NODES: No pathologic lymphadenopathy. ABDOMINAL WALL: Unremarkable SMALL BOWEL/COLON: Small bowel has normal course and caliber. No colonic wall thickening or pericolon ic inflammatory changes. URINARY BLADDER: Small right-sided bladder diverticulum and likely mild chronic bladder wall thickeni ng. REPRODUCTIVE ORGANS: No pathologic process. ---COMBINED--- MUSCULOSKELETAL: Multilevel degenerative changes in the spine. No acute fracture. Grade 1 anterolisth esis of L3 on L4 and L4 and L5. ADDITIONAL FINDINGS: None. IMPRESSION: No evidence of significant trauma to the chest, abdomen, or pelvis. Incidental findings as noted above,
[2025-03-05 10:18] VITALS: BP 110/73; TEMP 96.9; O2SAT 100
== END 2025-03-05 09:02 | disposition home or self-care (01) ==
LOC: ER 07:21
DX: S09.90XA Unspecified injury of head, initial encounter (principal); W18.30XA Fall on same level, unspecified, initial encounter; F99 Mental disorder, not otherwise specified
CPT/HCPCS: 70450; 71250; 72125; 74176; 99284